=== PATIENT | female | born 1940 | race Caucasian/White ===

== ENCOUNTER → 2016-06-14 | Outpatient (CLI) | payer MEDICARE, BC, OTHER ==
[~2016-06-14] MED LIST: /ASCO250TA PO; /BENA20TA PO; /METO5TA PO; ACET-654 PO; ALDA25TA2 PO; AMLO5TAB2 PO; ASCO500T PO; ASPI1TAB PO; ASPI81TA60 PO; ATEN100T PO; ATEN25TA PO; AUGM875T27 PO; BACIDCA PO; BENA20TA2 PO; BISAC5TA PO; CALC600T7 PO; CALCTAB68 PO; CARA1TAB2 PO; CARD180C4 PO; CARD60TA3 PO; CLIN200T PO; CO Q100C10 PO; COLA100C PO; COLCPOW6 PO; COUM1TAB14 PO; COUM1TAB17 PO; COUM2.5T11 PO; CYMB1CAP PO; CYMB1CAP5 PO; DILT300C46 PO; EUCECRE2 EX; FEBU40TA PO; FISH1000 PO; FISH100035 PO; FOLI1TAB2 PO; FOLI1TAB86 PO; GABA300C2 PO; GABA600T PO; HEPA100I4 IV; INDA2.5T PO; LASI40TA PO; LEVA250T PO; LORA1TAB PO; MAGN400T5 PO; METH2.5T PO; METH5TAB76 PO; MILK10SU PO; MULTTAB4 PO; NEUR300C PO; NORC5TAB PO; OMEP40CA2 PO; OSCA200T PO; POTA10CA PO; PRED10TA2 PO; REGR0.01 TOP; SALI0.9I2 IV; SLF IV; SPIR25TA2 PO; SUCR1TAB56 PO; SULF1TAB30 PO; SULF500T2 PO; SULI200T PO; TOLT1CAP PO; TOVI4TAB PO; TOVI8TAB PO; TYLE325T5 PO; VICO5TAB PO; VICO7.5T PO; VICO7.5T11 PO; VITA200015 PO; VITA20008 PO; VITA50003 PO; VITAD1000T PO; VITMTA PO; [UNRECOGNIZED DRUG - CODE] IV; [UNRECOGNIZED DRUG - CODE] IV; [UNRECOGNIZED DRUG - OTHER] PR
[2016-06-14 17:01] LABS: BASO # 0.2 K/mm3 (0.0-0.2); BASO % 2.2 % (0.0-1.0); EOS # 0.1 K/mm3 (0.0-0.50); EOS % 0.7 % (0.0-3.0); LARGE UNSTAINED CELL # 0.4 K/mm3 (0.0-0.4); LYMPH # 2.8 K/mm3 (1.5-4.5); LYMPH % 24.6 % (24.0-44.0); MEAN CORPUSCULAR HEMOGLOBIN 30.3 pg (27.0-33.0); MEAN CORPUSCULAR HGB CONC 31.1 g/dl (32.0-36.5); MEAN CORPUSCULAR VOLUME 97.2 fl (80.0-96.0); MONO # 0.6 K/mm3 (0.0-0.8); MONO % 5.7 % (0.0-5.0); NEUTROPHILS # 6.2 K/mm3 (1.8-7.7); NEUTROPHILS % 62.7 % (36.0-66.0); PLATELET COUNT, AUTOMATED 162 k/mm3 (150-450); RED CELL DISTRIBUTION WIDTH 14.9 % (11.5-14.5); WHITE BLOOD COUNT 9.8 K/mm3 (4.0-10.0)
[2016-06-14 17:17] LABS: TOTAL PROTEIN 6.1 GM/DL (6.4-8.2)
[2016-06-18 12:54] LABS: ALBUMIN 4.06 GM/DL (3.29-5.55); ALBUMIN % 66.5 % (55.8-66.1); GAMMA GLOBULIN % 7.8 % (11.1-18.8)
== END ==
LOC: M WUC 11:50
PROVIDERS: ATTEND Internal Medicine Medical Oncology
DX: D47.3 Essential (hemorrhagic) thrombocythemia (principal); M06.89 Other specified rheumatoid arthritis, multiple sites
CPT/HCPCS: 15275; 36415; 84165; 84166; 85025; 86335; Q4131

== ENCOUNTER → 2016-07-02 | Outpatient (CLI) | payer MEDICARE, BC, OTHER ==
[2016-07-02 17:37] LABS: MEAN CORPUSCULAR HEMOGLOBIN 30.4 pg (27.0-33.0); MEAN CORPUSCULAR HGB CONC 31.7 g/dl (32.0-36.5); MEAN CORPUSCULAR VOLUME 95.7 fl (80.0-96.0); RED CELL DISTRIBUTION WIDTH 13.3 % (11.5-14.5); WHITE BLOOD COUNT 8.8 K/mm3 (4.0-10.0)
[2016-07-02 17:49] LABS: ALBUMIN 3.8 GM/DL (3.2-5.2); CALCIUM LEVEL 9.3 MG/DL (8.8-10.2); CREATININE FOR GFR 1.38 MG/DL (0.55-1.02); GLOMERULAR FILTRATION RATE 39.5 (>39); PHOSPHORUS LEVEL 3.3 MG/DL (2.5-4.9); POTASSIUM SERUM 4.7 MEQ/L (3.5-5.1)
== END ==
LOC: M WUC 12:51
PROVIDERS: ATTEND Family Medicine
DX: N18.3 Chronic kidney disease, stage 3 (moderate) (principal)

== ENCOUNTER → 2016-08-02 | Outpatient (REF) | payer MEDICARE, BC, OTHER ==
[2016-08-02 17:21] LABS: MEAN CORPUSCULAR HEMOGLOBIN 31.4 pg (27.0-33.0); MEAN CORPUSCULAR HGB CONC 31.4 g/dl (32.0-36.5); MEAN CORPUSCULAR VOLUME 99.7 fl (80.0-96.0); RED CELL DISTRIBUTION WIDTH 13.3 % (11.5-14.5); WHITE BLOOD COUNT 7.9 K/mm3 (4.0-10.0)
[2016-08-02 18:09] LABS: CREATININE FOR GFR 1.21 MG/DL (0.55-1.02); GLOMERULAR FILTRATION RATE 45.8 (>39)
== END ==
LOC: M LAB REF 16:25
PROVIDERS: ATTEND Surgery
DX: L97.521 Non-pressure chronic ulcer of other part of left foot limited to breakdown of skin (principal)

== ENCOUNTER → 2016-08-14 | Outpatient (CLI) | payer MEDICARE, BC, OTHER ==
--- NOTE | 2016-08-14 10:53 | REP ---
Clinical: Chronic ulcer. Technique: Axial noncontrast images through the left foot with coronal and sagittal re-formations. Findings: Diffuse moderate subcutaneous edema and infiltration is appreciated throughout the foot. There is no evidence for laceration or emphysematous tract to define focal ulceration. No drainable, discrete fluid collection or abscess is appreciated. The osseous structures demonstrate advanced osteoarthritic degenerative changes predominate in the mid foot and tarsometatarsal joints as well as interphalangeal joints. No obvious acute fracture or dislocation. Fatty deposition in otherwise normal Achilles tendon is appreciated. Impression: 1. Advanced osteoarthritic degenerative changes with subcutaneous edema and infiltration. 2. No evidence for laceration, ulceration, subcutaneous emphysema, fluid collection or abscess. Signed by Andrew Rodriguez MD 08/14/2016 10:44 A
== END ==
LOC: M RAD 09:46
PROVIDERS: ATTEND Surgery
DX: L97.521 Non-pressure chronic ulcer of other part of left foot limited to breakdown of skin (principal)

== ENCOUNTER → 2016-09-19 | Outpatient (REF) | payer MEDICARE, OTHER ==
[~2016-09-19] MED LIST changes: -COLA100C PO; +COLA100C3 PO; +NORC1TAB4 PO; -NORC5TAB PO
[2016-09-19 14:12] LABS: FERRITIN 52 NG/ML (8-252); PERCENT SATURATION 28.2 % (13.2-37.4); TOTAL IRON BINDING CAPACITY 280 UG/DL (250-450); TOTAL PROTEIN 6.1 GM/DL (6.4-8.2)
[2016-09-20 12:35] LABS: ALBUMIN 4.14 GM/DL (3.29-5.55); ALBUMIN % 67.9 % (55.8-66.1); GAMMA GLOBULIN % 7.5 % (11.1-18.8)
[2016-09-21 00:07] LABS: FREE KAPPA LIGHT CHAINS SERUM 29.94 mg/L (3.30-19.40); FREE LAMBDA LIGHT CHAINS SERUM 17.12 mg/L (5.71-26.30); KAPPA/LAMBDA RATIO SERUM 1.75 (0.26-1.65)
== END ==
LOC: M LAB REF 13:23
PROVIDERS: ATTEND Internal Medicine Medical Oncology
DX: D47.2 Monoclonal gammopathy (principal); D50.9 Iron deficiency anemia, unspecified

== ENCOUNTER → 2016-12-10 | Outpatient (CLI) | payer MEDICARE, OTHER, MEDICAID ==
[~2016-12-10] MED LIST changes: -ACET-654 PO; +ACET1TAB17 PO; +ACET650T3 PO; +AMPI500C9 PO; -AUGM875T27 PO; +AUGM875T28 PO; +BECA1GEL TOP; +BYST5TAB2 PO; +CALC1CAP31 PO; -COLA100C3 PO; +COLA100C5 PO; -COUM2.5T11 PO; +COUM2.5T17 PO; +DILT240C PO; +FERR1TAB8 PO; -FOLI1TAB2 PO; +FOLI1TAB4 PO; +FURO40TA2 PO; +ISOS1TAB12 PO; +LEVA1TAB PO; -LEVA250T PO; -REGR0.01 TOP; +VITA1CAP40 PO; -VITA50003 PO
[2016-12-10 18:26] LABS: MEAN CORPUSCULAR HEMOGLOBIN 32.7 pg (27.0-33.0); MEAN CORPUSCULAR HGB CONC 32.8 g/dl (32.0-36.5); MEAN CORPUSCULAR VOLUME 99.6 fl (80.0-96.0); RED CELL DISTRIBUTION WIDTH 13.1 % (11.5-14.5); WHITE BLOOD COUNT 10.7 K/mm3 (4.0-10.0)
[2016-12-10 18:46] LABS: ALBUMIN 3.8 GM/DL (3.2-5.2); ALBUMIN/GLOBULIN RATIO 1.73 (1.00-1.93); BILIRUBIN,TOTAL 0.5 MG/DL (0.2-1.0); CREATININE FOR GFR 1.66 MG/DL (0.55-1.02); GLOMERULAR FILTRATION RATE 31.8 (>39); POTASSIUM SERUM 4.1 MEQ/L (3.5-5.1); URIC ACID 7.5 MG/DL (2.6-6.0)
== END ==
LOC: M WUC 12:18
PROVIDERS: ATTEND Family Medicine
DX: N18.3 Chronic kidney disease, stage 3 (moderate) (principal); I63.40 Cerebral infarction due to embolism of unspecified cerebral artery; M10.9 Gout, unspecified

== ENCOUNTER → 2016-12-19 | Outpatient (REF) | payer MEDICARE, OTHER, MEDICAID | LOC: M LAB REF 13:07 | PROVIDERS: ATTEND Internal Medicine Nephrology | DX: N39.0 Urinary tract infection, site not specified (principal) ==

== ENCOUNTER 2017-02-17 10:25 | Inpatient (IN) | payer MEDICARE, BC, OTHER, MEDICAID ==
[~2017-02-17] VITALS: Ht 170.2 cm; Wt 106.9 kg
[~2017-02-17 10:25] MED LIST changes: -ACET650T3 PO; -AMPI500C9 PO; -BYST5TAB2 PO; -CALC1CAP31 PO; -DILT240C PO; -FERR1TAB8 PO; -FURO40TA2 PO; -ISOS1TAB12 PO
[2017-02-17] MEDS ORDERED: BYST5TAB2 PO (10:40)
[2017-02-17] MEDS ORDERED: CALC1CAP31 PO (10:42)
[2017-02-17 11:14] LABS: BASO % 0.4 % (0.0-1.0); EOS # 0.1 K/mm3 (0.0-0.50); LARGE UNSTAINED CELL # 0.3 K/mm3 (0.0-0.4); LARGE UNSTAINED CELL % 3.4 % (0.0-4.0); LYMPH # 2.2 K/mm3 (1.5-4.5); MEAN CORPUSCULAR HEMOGLOBIN 32.9 pg (27.0-33.0); MEAN CORPUSCULAR HGB CONC 33.5 g/dl (32.0-36.5); MEAN CORPUSCULAR VOLUME 98.1 fl (80.0-96.0); MONO # 0.4 K/mm3 (0.0-0.8); MONO % 4.8 % (0.0-5.0); NEUTROPHILS # 4.5 K/mm3 (1.8-7.7); NEUTROPHILS % 60.4 % (36.0-66.0); PLATELET COUNT, AUTOMATED 134 k/mm3 (150-450); RED CELL DISTRIBUTION WIDTH 13.1 % (11.5-14.5); WHITE BLOOD COUNT 7.4 K/mm3 (4.0-10.0)
[2017-02-17 12:48] LABS: INR 2.06
[2017-02-17 13:11] LABS: ALBUMIN 3.7 GM/DL (3.2-5.2); ALBUMIN/GLOBULIN RATIO 1.54 (1.00-1.93); ALKALINE PHOSPHATASE 97 U/L (45-117); ALT/SGPT 21 U/L (12-78); ANION GAP 9 MEQ/L (8-16); AST/SGOT 21 U/L (15-37); BILIRUBIN,DIRECT 0.1 MG/DL (0.0-0.2); BILIRUBIN,TOTAL 0.4 MG/DL (0.2-1.0); BLOOD UREA NITROGEN 49 MG/DL (7-18); CALCIUM LEVEL 8.7 MG/DL (8.8-10.2); CARBON DIOXIDE LEVEL 32 MEQ/L (21-32); CHLORIDE LEVEL 102 MEQ/L (98-107); GLOMERULAR FILTRATION RATE 46.3 (>39); GLUCOSE, FASTING 102 MG/DL (83-110); POTASSIUM SERUM 4.3 MEQ/L (3.5-5.1); SODIUM LEVEL 143 MEQ/L (136-145); TOTAL PROTEIN 6.1 GM/DL (6.4-8.2)
--- NOTE | 2017-02-17 13:23 | REP ---
CHEST, SINGLE VIEW: Single view of the chest is performed and compared to prior study of 03/07/2016. There is a huge hiatal hernia. No acute infiltrate is seen. There is elevation of the left hemidiaphragm. Heart is upper limits of normal in size. Mediastinal silhouette is unchanged. IMPRESSION: Stable chronic findings without acute infiltrate. Signed by Bharath Jorgensen MD 02/17/2017 07:17 P
[2017-02-17] MEDS ORDERED: FUROSEMIDE 40 MG/4 ML VIAL (J1940) IV ONE (13:45)
[2017-02-17] MEDS ORDERED: ISOS1TAB12 PO (14:52)
[2017-02-17] MEDS ORDERED: SPIR25TA2 PO (14:52)
[2017-02-17] MEDS ORDERED: COLA100C5 PO (14:52)
[2017-02-17] MEDS ORDERED: DILT240C PO (14:52)
[2017-02-17] MEDS ORDERED: ACET650T3 PO (14:52)
[2017-02-17] MEDS ORDERED: FURO40TA2 PO (14:52)
[2017-02-17] MEDS ORDERED: DOCUSATE SODIUM 100 MG CAP PO PRN (15:00)
--- NOTE | 2017-02-17 15:51 | HPE ---
DATE OF ADMISSION: 02/17/2017 PRIMARY CARE PHYSICIAN: Levi Carrasco MD CHIEF COMPLAINT: Shortness of breath and weight gain. HISTORY OF PRESENT ILLNESS: This is a 76-year-old woman with a history of systolic congestive heart failure with an ejection fraction (EF) of 30% on cardiac catheterization in July 2015, a history of mitral valve replacement for spontaneous bacterial endocarditis, and atrial fibrillation who presented with 1 week of gradually worsening shortness of breath with exertion, worsening orthopnea, and paroxysmal nocturnal dyspnea. She weighs herself every other day and has noticed a five pound weight gain over the past week. She also is complaining of 3-4 days of chest tightness that is worse when taking a deep breath, but it is also present at rest. She underwent a cardiac catheterization in July 2015, prior to her mitral valve replacement, that was negative for coronary artery disease. In the emergency department, she was found to have an elevated BNP of 2889. Chest x-ray showed cephalization and chronic cardiomegaly. She also underwent a vascular ultrasound of her right leg due to increased edema that was negative for a deep venous thrombosis (DVT). PAST MEDICAL HISTORY: 1. 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 2. Atrial fibrillation after mitral valve replacement in July 2015. 3. Rheumatoid arthritis. 4. Hypertension. 5. 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 6. Lumbar spinal stenosis. 7. Hyperlipidemia. 8. Esophageal reflux. 9. Impaired fasting glucose and metabolic syndrome. 10. Peripheral edema secondary to venous insufficiency. 11. Vitamin D deficiency. 12. History of methicillin-resistant Staphylococcus aureus (MRSA). 13. Gout. 14. History of CVA, probably septic emboli in July 2013. 15. History of hiatal hernia. 16. Urinary incontinence. 17. Systolic congestive heart failure. 18. Monoclonal gammopathy of undetermined significance. 19. Chronic kidney disease stage III. SURGICAL HISTORY: 1. Lumbar spinal fusion in 1994. 2. Venous stripping x 2. 3. Total abdominal hysterectomy and bilateral salpingo-oophorectomy for endometrial adenocarcinoma. 4. Left total knee replacement. 5. Right total knee replacement. 6. Multiple podiatry procedures including bunionectomy and hammer toe surgeries. 7. Transesophageal echo that showed vegetation in the mitral valve in July 2013. 8. Mitral valve replacement with a #33 Mosaic mitral valve (porcine) in July 2015 at [facility]. 9. Cardiac catheterization at [facility] which showed no coronary artery disease and an ejection fraction (EF) of 30% with severe mitral regurgitation in July 2015, prior to mitral valve replacement. CURRENT MEDICATIONS: - Carafate 1 gram four times a day before food and nightly - omeprazole 40 mg by mouth twice a day - oxygen 2 liters via nasal cannula overnight - potassium chloride 10 mEq twice a day - magnesium 400 mg daily - Tylenol 325 mg every 6 hours as needed for pain - aspirin 81 mg daily - multivitamin one tablet daily - Coumadin 4 mg by mouth daily - Lasix 40 mg take two tablets in the morning and one tablet at 12 noon - Aldactone 25 mg twice a day - isosorbide mononitrate 10 mg take half a tablet by mouth twice a day - Bystolic 5 mg once daily - diltiazem extended release 240 mg by mouth daily - calcitriol 0.25 mcg one capsule on Mondays, Wednesdays, and Fridays - Doc-Q-Lace 100 mg twice a day as needed - folic acid 1 mg by mouth daily - Uloric 40 mg by mouth daily - sulfasalazine 500 mg take two tablets by mouth twice a day - ferrous sulfate 325 mg one tablet by mouth daily - Detrol 4 mg by mouth daily - Cymbalta 30 mg by mouth twice a day - Drisdol 50,000 units one capsule by mouth monthly - gabapentin 600 mg one tablet by mouth twice a day FAMILY HISTORY: Noncontributory. SOCIAL HISTORY: Patient denies tobacco, alcohol, or drug use. She lives with her and has caregivers who are in the house for approximately 5 hours a day. ALLERGIES: ALLOPURINOL, reaction is rash. REVIEW OF SYSTEMS: GENERAL: Denies fevers, chills. Admits to a five pound weight gain over the last week. Denies headaches. EARS, NOSE, THROAT (ENT): Denies throat pain, ear pain, rhinorrhea. SKIN: Denies rashes or changes in skin. CARDIOVASCULAR: Admits to chest tightness, both at rest and worse with taking a deep breath. Denies palpitations, lightheadedness. PULMONOLOGY: Admits to shortness of breath with exertion, orthopnea, paroxysmal nocturnal dyspnea, and dry nonproductive cough of approximately 2 months' duration. GASTROENTEROLOGY: Denies nausea, vomiting, abdominal pain, diarrhea, constipation, or blood in stool. NEUROLOGY: Denies focal weakness, sensory changes, or changes in thinking. MUSCULOSKELETAL: Admits to chronic pain in back, shoulders, hands, and wrists that is currently at baseline. EXTREMITIES: Admits to increased lower extremity edema, right worse than left. PHYSICAL EXAMINATION: Initial vital signs in the emergency department was a temperature of 97.6, pulse of 80, respiratory rate of 18, blood pressure 143/105, and a pulse oximetry of 93% on room air. Blood pressure at time of evaluation was 149/94. GENERAL: Patient is awake, alert, and oriented, in no apparent distress. HEAD: Normocephalic, atraumatic. ENT: Mucous membranes are moist. Tympanic membranes are pearly bilaterally. Patient is edentulous. No rhinorrhea noted. NECK: Supple, no thyromegaly or masses, jugular venous distention (JVD) noted. CARDIOVASCULAR: Irregularly irregular heart rate. No murmur. S1, S2 within normal limits. PULMONOLOGY: Bibasilar crackles noted with poor air movement throughout. No increased work of breathing. BACK: Nontender to palpation. ABDOMEN: Soft, nontender, with positive bowel sounds in all four quadrants. EXTREMITIES: 2+ pitting edema in right foot, ankle, and lower leg. 1+ pitting edema in left foot, ankle, and lower leg. Rheumatoid changes noted in both hands with ulnar deviation of fingers and limited ability to primer boxer. SKIN: Normal, no rashes. NEUROLOGIC: Cranial nerves II-XII are intact. Strength is 4+/5 in bilateral upper and lower extremities. LABORATORY DATA: Sodium 143, potassium 4.3, bicarbonate 32, BUN 49, creatinine 1.2, lactic acid 1.6, calcium 8.7. Liver panel was within normal limits. Cardiac enzymes were negative. Pro-BNP was 2889. TSH was 2.04. White blood cells 7.4, hemoglobin 14.2, hematocrit 42.4, platelets 134. PT 23.9, INR 2.06. Chest x-ray was read as stable chronic findings without acute infiltrate. Vascular ultrasound was reportedly negative for DVT on the right per emergency department (ED) physician. Final read is pending. ASSESSMENT AND PLAN: This is a 76-year-old woman with: 1. Acute exacerbation of systolic congestive heart failure: The patient will be admitted to the progressive care unit (PCU) for monitoring on telemetry. She will be given Lasix 40 mg IV every 6 hours as needed for a goal output of 1500 mL per 24 hours. She will be kept on a no added salt diet with strict monitoring of intake and output and a 2000 mL per day fluid restriction. We will hold her home oral Lasix and Aldactone while she is being diuresed. We will monitor her kidney function daily. We will continue her home potassium and magnesium and adjust as needed if electrolytes become abnormal. We will also continue her home Bystolic and diltiazem. 2. Chronic kidney disease stage III: Creatinine is currently close to baseline ; baseline creatinine appears to be around 1.1. We will need to monitor as we diurese her. 3. Atrial fibrillation: Will control rate with diltiazem and Bystolic. Will continue home Coumadin as she is currently therapeutic. 4. Hypertension: Continue Bystolic, diltiazem, and isosorbide mononitrate. 5. Will continue other medications for patient's chronic medical problems. Deep venous thrombosis (DVT) prophylaxis with coumadin (currently therapeutic). The patient states she would like to be a FULL CODE. MTDD
[2017-02-17 16:00] VITALS: BP 136/84
[2017-02-17] MEDS: SUCRALFATE 1 GM TAB PO SCH ×2 (16:43→20:25)
[2017-02-17] MEDS: WARFARIN SOD 4 MG TAB PO SCH (18:05)
[2017-02-17] MEDS: MAGNESIUM OXIDE 400 MG TAB (MAG-OX) PO SCH (18:08)
[2017-02-17] MEDS: ISOSORBIDE MONONITRATE 10MG TABLET PO SCH (18:08)
[2017-02-17] MEDS: FUROSEMIDE 40 MG/4 ML VIAL (J1940) IV SCH (18:09)
[2017-02-17 20:00] VITALS: BP 166/72
[2017-02-17] MEDS: DULoxetine 30 MG CAP (CYMBALTA) PO SCH (20:25)
[2017-02-17] MEDS: POTASSIUM CHLORIDE 10 MEQ SR TABLET PO SCH (20:25)
[2017-02-17] MEDS: GABAPENTIN 300 MG CAP PO SCH (20:25)
[2017-02-17] MEDS: OMEPRAZOLE 20 MG CAP PO SCH (20:25)
[2017-02-18] VITALS: BP 115/77
[2017-02-18] MEDS: FUROSEMIDE 40 MG/4 ML VIAL (J1940) IV SCH ×2 (00:17→06:09)
[2017-02-18 04:00] VITALS: BP 146/77
[2017-02-18 05:23] LABS: MEAN CORPUSCULAR HEMOGLOBIN 33.3 pg (27.0-33.0); MEAN CORPUSCULAR HGB CONC 34.1 g/dl (32.0-36.5); MEAN CORPUSCULAR VOLUME 97.6 fl (80.0-96.0); RED CELL DISTRIBUTION WIDTH 13.1 % (11.5-14.5); WHITE BLOOD COUNT 8.1 K/mm3 (4.0-10.0)
[2017-02-18 05:39] LABS: INR 2.04
[2017-02-18 05:52] LABS: ANION GAP 10 MEQ/L (8-16); BLOOD UREA NITROGEN 46 MG/DL (7-18); CALCIUM LEVEL 8.5 MG/DL (8.8-10.2); CARBON DIOXIDE LEVEL 31 MEQ/L (21-32); CHLORIDE LEVEL 101 MEQ/L (98-107); GLOMERULAR FILTRATION RATE 46.3 (>39); GLUCOSE, FASTING 110 MG/DL (83-110); MAGNESIUM LEVEL 1.9 MG/DL (1.8-2.4); POTASSIUM SERUM 3.5 MEQ/L (3.5-5.1); SODIUM LEVEL 142 MEQ/L (136-145)
[2017-02-18] MEDS: ISOSORBIDE MONONITRATE 10MG TABLET PO SCH ×2 (06:08→17:28)
[2017-02-18 08:00] VITALS: BP 131/81
--- NOTE | 2017-02-18 08:28 | ECGEPIP ---
Stationary ECG Study [facility] - ED Test Date: 2017-02-17 Pat Name: GIOVANY KAPLAN Department: Room: - Gender: F Desolderer: shelly : 1940 Requested By: Deysi Koch Order Number: [id number] Reading MD: Scar Merino Measurements Intervals [place] Rate: 82 P: LA: 0 QRS: 9 QRSD: 114 T: 67 QT: 386 QTc: 453 Interpretive Statements ATRIAL FIBRILLATION MODERATE INTRAVENTRICULAR CONDUCTION DELAY NONSPECIFIC ST & T-WAVE ABNORMALITY SIMILAR TO 03/12/16 Electronically Signed On 02-18-2017 8:28:44 EDT by Scar Merino
[2017-02-18] MEDS: OMEPRAZOLE 20 MG CAP PO SCH ×2 (08:34→21:52)
[2017-02-18] MEDS: GABAPENTIN 300 MG CAP PO SCH ×2 (08:34→21:52)
[2017-02-18] MEDS: FEBUXOSTAT 40 MG TABLET (ULORIC) PO SCH (08:34)
[2017-02-18] MEDS: TOLTERODINE TARTRATE 2 MG LA CAP (DETROL LA) PO SCH (08:35)
[2017-02-18] MEDS: FOLIC ACID 1 MG TAB PO SCH (08:35)
[2017-02-18] MEDS: MAGNESIUM OXIDE 400 MG TAB (MAG-OX) PO SCH (08:36)
[2017-02-18] MEDS: SUCRALFATE 1 GM TAB PO SCH ×4 (08:36→21:52)
[2017-02-18] MEDS: ASPIRIN 81 MG ENTERIC TAB PO SCH (08:36)
[2017-02-18] MEDS: NEBIVOLOL 5 MG TAB (BYSTOLIC) PO SCH (08:36)
[2017-02-18] MEDS: DULoxetine 30 MG CAP (CYMBALTA) PO SCH ×2 (08:37→21:52)
[2017-02-18] MEDS: FERROUS SULFATE 325MG TAB PO SCH (08:37)
[2017-02-18] MEDS: POTASSIUM CHLORIDE 10 MEQ SR TABLET PO SCH ×2 (08:37→21:52)
--- NOTE | 2017-02-18 10:33 | IPNPDOC ---
Subjective Date Seen The patient was seen on 02/18/17. Subjective Chief Complaint/HPI The patient is a 76-year-old female admitted with a reason for visit of Chf Exacerbation. Events since last encounter Significant improvement in symptoms. -1800 ml with IV Lasix. Constitutional: Denies: Chills, Fever, Night Sweats Skin: Denies: Rash, Lesions, Breakdown Pulmonary: Denies: Dyspnea, Cough Cardiovascular: Denies: Chest Pain, Palpitations, Orthopnea, Paroxysmal Noc. Dyspnea, Lt Headedness Objective Physical Examination General Exam: Positive: Alert, No Acute Distress Eye Exam: Positive: PERRLA, Conjunctiva & lids normal, EOMI, Negative: Sclera icteric Neck Exam: Positive: Supple, Negative: JVD, thyromegaly Chest Exam: Positive: Clear to auscultation, Normal air movement Heart Exam: Positive: Rate Normal, Regular Rhythm, Normal S1, Normal S2, Negative: Murmurs, Rubs Telemetry: Positive: No significant arrhythmia Extremity Exam: Positive: Normal pulses, Negative: Clubbing, Cyanosis, Edema Psych Exam: Positive: Mental status NL, Mood NL, Oriented x 3 Assessment /Plan Problems (1) Acute on chronic systolic (congestive) heart failure Status: Acute Problem Text: -1800 ml. symptoms near resolve. Change to home dosing Furosemide : 80 mg in am, 40 in pm. Electrolytes stable. (2) CKD (chronic kidney disease) stage 3, GFR 30-59 ml/min Status: Chronic Response to Treatment: Stable Problem Specific Plan: Monitor Clinically (3) A-fib Status: Chronic Response to Treatment: Stable Problem Specific Plan: Monitor Clinically Problem Text: INR stable at 2.04. On home dosing rate controlling medications. (4) Morbidly obese Status: Chronic Response to Treatment: Stable Problem Specific Plan: Monitor Clinically Plan/VTE VTE Prophylaxis Ordered?: Yes Plan Family Medicine Attending Note: I saw and examined Ms. Oconnor this morning; I discussed her care with JETT Tran and I agree with her note as documented. Ms. Oconnor was feeling significantly better this morning and diuresed well overnight. Will restart home PO furosemide and if she does well overnight, I expect she may be discharged home tomorrow. I discussed her mobility with her nurse - she does need assistance with ambulating, but she also does not have her home walker here. Her nurse spoke with the family, who will bring in her walker so that we can make sure she is able to ambulate and is safe for discharge. (KES) VS, I&O, 24H, Marianela Vital Signs/I&O Vital Signs Date Time Temp Pulse Resp B/P (MAP) Pulse Ox O2 Delivery O2 Flow Rate FiO2 02/18/17 08:35 92 131/81 02/18/17 08:10 Room Air 02/18/17 08:00 96.2 18 95 I&O- Last 24 Hours up to 6 AM 02/19/17 06:00 Intake Total 480 ml Output Total 500 ml Balance -20 ml Laboratory Data 24H LABS Laboratory Tests 2 02/17/17 11:05: White Blood Count 7.4, Red Blood Count 4.32, Hemoglobin 14.2, Hematocrit 42.4, Mean Corpuscular Volume 98.1H, Mean Corpuscular Hemoglobin 32.9, Mean Corpuscular Hemoglobin Concent 33.5, Red Cell Distribution Width 13.1, Platelet Count 134L, Neutrophils (%) (Auto) 60.4, Lymphocytes (%) (Auto) 30.0, Monocytes (%) (Auto) 4.8, Eosinophils (%) (Auto) 1.0, Basophils (%) (Auto) 0.4, Neutrophils # (Auto) 4.5, Lymphocytes # (Auto) 2.2, Monocytes # (Auto) 0.4, Eosinophils # (Auto) 0.1, Basophils # (Auto) 0.0, Large Unclassified Cells % 3.4 , Large Unclassified Cells # 0.3 02/17/17 12:33: Lactic Acid Level 1.6 02/17/17 12:34: Prothrombin Time 23.9H, Prothromb Time International Ratio 2.06, Anion Gap 9, Glomerular Filtration Rate 46.3, Calcium Level 8.7L, Aspartate Amino Transf (AST /SGOT) 21, Alanine Aminotransferase (ALT/SGPT) 21, Alkaline Phosphatase 97, Total Bilirubin 0.4, Direct Bilirubin 0.1, Total Creatine Kinase 120, Creatine Kinase MB 3.8H, Creatine Kinase MB Relative Index 3.16, Troponin I < 0.02, NT- Pro-B-Type Natriuretic Peptide 2889H, Total Protein 6.1L, Albumin 3.7, Albumin/ Globulin Ratio 1.54, Thyroid Stimulating Hormone (TSH) 2.040 02/17/17 20:45: Total Creatine Kinase 122, Creatine Kinase MB 3.6, Creatine Kinase MB Relative Index 2.95, Troponin I < 0.02 02/18/17 04:51: Prothrombin Time 23.7H, Prothromb Time International Ratio 2.04, Anion Gap 10, Glomerular Filtration Rate 46.3, Blood Urea Nitrogen 46H, Creatinine 1.20H, Sodium Level 142, Potassium Level 3.5, Chloride Level 101, Carbon Dioxide Level 31, Calcium Level 8.5L, Total Creatine Kinase 84, Magnesium Level 1.9, Creatine Kinase MB 2.2, Creatine Kinase MB Relative Index 2.61, Troponin I < 0.02 CBC/BMP Laboratory Tests 02/17/17 11:05 Red Blood Count 4.32, Mean Corpuscular Volume 98.1 H, Mean Corpuscular Hemoglobin 32.9, Mean Corpuscular Hemoglobin Concent 33.5, Red Cell Distribution Width 13.1, Neutrophils (%) (Auto) 60.4, Lymphocytes (%) (Auto) 30.0, Monocytes (%) (Auto) 4.8, Eosinophils (%) (Auto) 1.0, Basophils (%) (Auto ) 0.4, Neutrophils # (Auto) 4.5, Lymphocytes # (Auto) 2.2, Monocytes # (Auto) 0.4, Eosinophils # (Auto) 0.1, Basophils # (Auto) 0.0 02/17/17 12:34 02/18/17 04:51 Red Blood Count 3.98 L, Mean Corpuscular Volume 97.6 H, Mean Corpuscular Hemoglobin 33.3 H, Mean Corpuscular Hemoglobin Concent 34.1, Red Cell Distribution Width 13.1, Calcium Level 8.5 L, Total Creatine Kinase 84 Microbiology Microbiology 02/17/17 Blood Culture, Received Pending 02/17/17 Blood Culture, Received Pending Linnette Henderson Feb 18, 2017 10:33 ALISHA SCOTT MD Feb 18, 2017 12:38
[2017-02-18 11:36] VITALS: BP 136/79
--- NOTE | 2017-02-18 12:55 | REP ---
Right lower extremity Duplex Doppler venous ultrasound: Real time compression and duplex Doppler interrogation of the right lower extremity deep venous system is performed. The right common femoral, superficial femoral and popliteal veins are fully compressible with transducer pressure and demonstrate normal spontaneous and phasic flow, without evidence of deep venous thrombosis. Impression: No evidence of deep venous thrombosis of the right lower extremity femoral popliteal venous system. Signed by Bharath Jorgensen MD 02/17/2017 11:35 A
[2017-02-18] MEDS: FUROSEMIDE 40 MG TAB PO SCH (14:45)
[2017-02-18 16:00] VITALS: BP 148/70
[2017-02-18] MEDS: WARFARIN SOD 4 MG TAB PO SCH (17:26)
[2017-02-18] MEDS ORDERED: CALCITRIOL 0.25 MCG CAP (S0169) PO SCH (18:00)
[2017-02-18 20:00] VITALS: BP 133/73
[2017-02-18] MEDS: ACETAMINOPHEN 325 MG TAB PO PRN (22:04)
[2017-02-19] VITALS: BP 124/77
[2017-02-19 04:00] VITALS: BP 124/80
[2017-02-19 06:28] LABS: INR 1.99
[2017-02-19] MEDS: ISOSORBIDE MONONITRATE 10MG TABLET PO SCH ×2 (06:57→17:49)
[2017-02-19 07:06] LABS: CALCIUM LEVEL 8.9 MG/DL (8.8-10.2); CREATININE FOR GFR 1.25 MG/DL (0.55-1.02); GLOMERULAR FILTRATION RATE 44.1 (>39); POTASSIUM SERUM 3.2 MEQ/L (3.5-5.1)
[2017-02-19 07:30] VITALS: BP 132/72
[2017-02-19] MEDS ORDERED: INFLUENZA VIRUS VACCINE HIGH DOSE 0.5 ML SYRINGE (90662) IM ONE (09:00)
[2017-02-19] MEDS: NEBIVOLOL 5 MG TAB (BYSTOLIC) PO SCH (09:29)
[2017-02-19] MEDS: TOLTERODINE TARTRATE 2 MG LA CAP (DETROL LA) PO SCH (09:29)
[2017-02-19] MEDS: FUROSEMIDE 80 MG TAB PO SCH (09:29)
[2017-02-19] MEDS: OMEPRAZOLE 20 MG CAP PO SCH ×2 (09:29→20:52)
[2017-02-19] MEDS: GABAPENTIN 300 MG CAP PO SCH ×2 (09:30→20:52)
[2017-02-19] MEDS: MAGNESIUM OXIDE 400 MG TAB (MAG-OX) PO SCH (09:30)
[2017-02-19] MEDS: FOLIC ACID 1 MG TAB PO SCH (09:30)
[2017-02-19] MEDS: DULoxetine 30 MG CAP (CYMBALTA) PO SCH ×2 (09:31→20:51)
[2017-02-19] MEDS: SUCRALFATE 1 GM TAB PO SCH ×4 (09:31→20:51)
[2017-02-19] MEDS: ASPIRIN 81 MG ENTERIC TAB PO SCH (09:31)
[2017-02-19] MEDS: FERROUS SULFATE 325MG TAB PO SCH (09:31)
[2017-02-19] MEDS: POTASSIUM CHLORIDE 10 MEQ SR TABLET PO SCH ×2 (09:31→20:51)
[2017-02-19 12:00] VITALS: BP 169/70
--- NOTE | 2017-02-19 12:12 | IPNPDOC ---
Subjective Date Seen The patient was seen on 02/19/17. Subjective Chief Complaint/HPI The patient is a 76-year-old female admitted with a reason for visit of Chf Exacerbation. Events since last encounter breathing significantly improved from admission. ambulated in hallway without Bazan Constitutional: Denies: Chills, Fever Pulmonary: Denies: Dyspnea, Cough Cardiovascular: Denies: Chest Pain, Palpitations Gastrointestinal: Denies: Nausea, Vomiting, Abdominal Pain, Diarrhea, Constipation Objective Physical Examination General Exam: Positive: Alert, No Acute Distress Neck Exam: Positive: Supple, Negative: JVD, thyromegaly Chest Exam: Positive: Clear to auscultation, Normal air movement Heart Exam: Positive: Rate Normal, Regular Rhythm, Normal S1, Normal S2, Negative: Murmurs, Rubs Telemetry: Positive: No significant arrhythmia Extremity Exam: Positive: Edema (trace edmea right > left) Psych Exam: Positive: Mental status NL, Oriented x 3 Assessment /Plan Problems (1) Acute on chronic systolic (congestive) heart failure Status: Acute Problem Text: 02.19 - Compensated on HD Furosemide. BUN up, creatinine stable - monitor trend - (2) CKD (chronic kidney disease) stage 3, GFR 30-59 ml/min Status: Chronic Response to Treatment: Stable Problem Specific Plan: Monitor Clinically Problem Text: baseline cr 1.2 (3) A-fib Status: Chronic Response to Treatment: Stable Problem Specific Plan: Monitor Clinically Problem Text: 02/19 - INR = 1.99. On coumadin 4 mg daily - Give 5 mg today Rate controlled (4) Morbidly obese Status: Chronic Response to Treatment: Stable Problem Specific Plan: Monitor Clinically Plan/VTE VTE Prophylaxis Ordered?: Yes Plan Therapy: PT, OT (Not safe for d/c home - needs 1 - 2 more days per PT. Move to floor) VS, I&O, 24H, Fishbone Vital Signs/I&O Vital Signs Date Time Temp Pulse Resp B/P (MAP) Pulse Ox O2 Delivery O2 Flow Rate FiO2 02/19/17 09:29 75 132/72 02/19/17 08:00 Room Air 02/19/17 07:30 97.5 20 96 2.0 I&O- Last 24 Hours up to 6 AM 02/20/17 06:00 Intake Total 360 ml Balance 360 ml Laboratory Data 24H LABS Laboratory Tests 2 02/19/17 05:45: Prothrombin Time 23.3H, Prothromb Time International Ratio 1.99, Anion Gap 8, Glomerular Filtration Rate 44.1, Blood Urea Nitrogen 52H, Creatinine 1.25H, Sodium Level 141, Potassium Level 3.2L, Chloride Level 102, Carbon Dioxide Level 31, Calcium Level 8.9 CBC/BMP Laboratory Tests 02/19/17 05:45 Calcium Level 8.9 Microbiology Microbiology 02/17/17 Blood Culture - Preliminary, Resulted No growth after 24 hours . All specim... 02/17/17 Blood Culture - Preliminary, Resulted No Growth after 48 hours. All Specime... BARRY BUTLER PA-C Feb 19, 2017 12:12 Yariel Davidson M.D. Feb 19, 2017 17:44
[2017-02-19] MEDS: FUROSEMIDE 40 MG TAB PO SCH (14:09)
[2017-02-19 16:10] VITALS: BP 134/62
[2017-02-19] MEDS ORDERED: WARFARIN SOD 5 MG TAB PO ONE (17:00)
[2017-02-19 20:00] VITALS: BP 121/73
[2017-02-19] MEDS ORDERED: SLF 3 ML SYR IV PRN (20:45)
[2017-02-19] MEDS: ACETAMINOPHEN 325 MG TAB PO PRN (20:53)
[2017-02-19] MEDS: SLF 3 ML SYR IV SCH (20:53)
[2017-02-20] VITALS: BP 136/75
[2017-02-20 04:00] VITALS: BP 148/81
[2017-02-20] MEDS: ACETAMINOPHEN 325 MG TAB PO PRN (04:17)
[2017-02-20 06:03] LABS: INR 1.85
[2017-02-20 06:09] LABS: CALCIUM LEVEL 8.8 MG/DL (8.8-10.2); CREATININE FOR GFR 1.47 MG/DL (0.55-1.02); GLOMERULAR FILTRATION RATE 36.6 (>39)
[2017-02-20] MEDS: ISOSORBIDE MONONITRATE 10MG TABLET PO SCH (06:34)
[2017-02-20] MEDS: SLF 3 ML SYR IV SCH (06:35)
[2017-02-20 07:45] VITALS: BP 199/89
[2017-02-20] MEDS: DULoxetine 30 MG CAP (CYMBALTA) PO SCH (08:38)
[2017-02-20 08:39] VITALS: BP 199/89
[2017-02-20] MEDS: FUROSEMIDE 80 MG TAB PO SCH (08:39)
[2017-02-20] MEDS: TOLTERODINE TARTRATE 2 MG LA CAP (DETROL LA) PO SCH (08:39)
[2017-02-20] MEDS: SUCRALFATE 1 GM TAB PO SCH (08:39)
[2017-02-20] MEDS: NEBIVOLOL 5 MG TAB (BYSTOLIC) PO SCH (08:39)
[2017-02-20] MEDS: FEBUXOSTAT 40 MG TABLET (ULORIC) PO SCH (08:39)
[2017-02-20] MEDS: FOLIC ACID 1 MG TAB PO SCH (08:39)
[2017-02-20] MEDS: GABAPENTIN 300 MG CAP PO SCH (08:39)
[2017-02-20] MEDS: OMEPRAZOLE 20 MG CAP PO SCH (08:39)
[2017-02-20] MEDS: FERROUS SULFATE 325MG TAB PO SCH (08:40)
[2017-02-20] MEDS: MAGNESIUM OXIDE 400 MG TAB (MAG-OX) PO SCH (08:40)
[2017-02-20] MEDS: POTASSIUM CHLORIDE 10 MEQ SR TABLET PO SCH (08:40)
[2017-02-20] MEDS: ASPIRIN 81 MG ENTERIC TAB PO SCH (08:40)
[2017-02-20 09:21] VITALS: BP 167/76
--- NOTE | 2017-02-21 02:13 | DSES ---
DATE OF ADMISSION: 02/17/2017 DATE OF DISCHARGE: 02/20/2017 BRIEF HISTORY AND PHYSICAL: The patient is a 76-year-old patient with a history of systolic congestive heart failure with ejection fraction of 30% per cardiac catheterization July 2015. She presented with gradually worsening shortness of breath, orthopnea, paroxysmal nocturnal dyspnea, as well as 5-pound weight gain and some tightness in her chest. Beta-natruretic peptide (BNP) was 2889. Chest x-ray showed cephalization and she had bibasilar crackles, as well as edema in both lower extremities. PAST MEDICAL HISTORY: Significant for: 1. Spontaneous bacterial endocarditis with mitral valve Enterococcal in 2013 with subsequent mitral valve replacement and porcine valve in July 2015. 2. Atrial fibrillation after mitral valve replacement. 3. Rheumatoid arthritis. 4. Hypertension. 5. Degenerative disc disease. 6. Lumbar spinal stenosis. 7. Hyperlipidemia. 8. Esophageal reflux. 9. Impaired fasting glucose. 10. Metabolic syndrome. 11. Peripheral edema secondary to venous insufficiency. 12. Vitamin D deficiency. 13. History of methicillin-resistant Staphylococcus aureus. 14. Gout. 15. History of a CVA, probably septic emboli in July 2013. 16. History of hiatal hernia. 17. Urinary incontinence. 18. Systolic congestive heart failure. 19. Monoclonal gammopathy of undetermined significance. 20. Chronic kidney disease stage III. PERTINENT LABORATORIES ON ADMISSION: Sodium 143, potassium 4.3, BUN 49, creatinine 1.2. Liver enzymes were normal. Cardiac enzymes were negative. BNP was 2889. White blood cell count was 7.4, hemoglobin 14.2, platelets 134,000. Chest x-ray was read as stable chronic findings without acute infiltrate. Vascular ultrasound was negative for DVT on the right. HOSPITAL COURSE: 1. The patient was admitted for acute on chronic systolic congestive heart failure, ejection fraction is 30%. She was placed on intravenous (IV) Lasix, no added salt diet and fluid restriction were initiated and she remained on her usual potassium, magnesium and spironolactone, as well as Bystolic and diltiazem. Ultimately, although the history and physical (H and P) stated they were going to continue her usual spironolactone, it looks as though this was not continued during the hospitalization. However, I will restart this at her usual home dose upon discharge, as well as her usual maintenance Lasix. She responded well to the IV Lasix and is well compensated at this time without signs of heart failure. Her potassium today is 4.0, but she was hypokalemic after getting the Lasix and did require some oral replacement. I suspect she will benefit from being on the spironolactone at home as well. No other medication adjustments were made during the hospitalization and she will be discharged home on all of her other usual medications with no new medications prescribed. 2. Atrial fibrillation. She is on chronic Coumadin. She will continue her usual Coumadin dose of 4 mg daily. She was not continued on this during the hospitalization. Her INR drifted down 1.85 today, but I will restart her on her usual dose and suspect that this will return back to its therapeutic range where it was when she arrived in the hospital. 3. Chronic kidney disease. Her renal function, BUN and creatinine agustín slightly with diuresis to 52 and 1.47, but this I suspect is her dry weight and renal function. DISPOSITION: She is stable for discharge home with home health. She will need a bedside commode. She is safe per physical therapy. MEDICATIONS: - acetaminophen 650 mg every 8 hours as needed for pain - aspirin 81 mg daily - calcitriol 0.25 mcg three times a week - diltiazem 240 mg daily - Colace 100 mg twice a day - Cymbalta 30 mg twice a day - vitamin D 50,000 international units monthly - Uloric 40 mg every 2 days - folic acid 1 mg daily - Lasix 80 mg in the morning, 40 mg at noon - gabapentin 600 mg twice a day - isosorbide mononitrate 5 mg twice a day - magnesium 400 mg daily - multivitamin daily - Bystolic 5 mg daily - omeprazole 40 mg twice a day - potassium chloride 10 mEq twice a day - spironolactone 25 mg twice a day - sucralfate 1 gram daily - sulfasalazine 1000 mg twice a day - tolterodine tartrate 4 mg daily - Coumadin 4 mg daily DISCHARGE DIAGNOSES: 1. Acute on chronic systolic congestive heart failure. 2. Atrial fibrillation on chronic Coumadin. 3. Chronic kidney disease. 4. Hypokalemia, resolved. 5. Rheumatoid arthritis with chronic pain and unsteady gait.
[2017-04-01] MEDS ORDERED: FEBU40TA PO (19:16)
[2017-04-01] MEDS ORDERED: AMPI500C9 PO (23:52)
[2017-04-01] MEDS ORDERED: FERR1TAB8 PO (23:52)
[2017-04-04] MEDS ORDERED: XARE15TA PO (09:00)
== END 2017-02-20 12:00 | disposition home health service (06) | DRG 291 ==
LOC: M ED 10:25 → M ED INP 14:03 → M PCU 15:45
PROVIDERS: ADMIT Family Medicine; ATTEND Family Medicine
DX: I13.0 Hypertensive heart and chronic kidney disease with heart failure and stage 1 through stage 4 chronic kidney disease, or unspecified chronic kidney disease (principal); I50.23 Acute on chronic systolic (congestive) heart failure; N18.3 Chronic kidney disease, stage 3 (moderate); I48.91 Unspecified atrial fibrillation; E55.9 Vitamin D deficiency, unspecified; E78.5 Hyperlipidemia, unspecified; E66.01 Morbid (severe) obesity due to excess calories; K21.9 Gastro-esophageal reflux disease without esophagitis; Z86.14 Personal history of Methicillin resistant Staphylococcus aureus infection; Z86.73 Personal history of transient ischemic attack (TIA), and cerebral infarction without residual deficits; Z90.710 Acquired absence of both cervix and uterus; Z90.722 Acquired absence of ovaries, bilateral; Z96.653 Presence of artificial knee joint, bilateral; Z99.81 Dependence on supplemental oxygen; Z79.82 Long term (current) use of aspirin; Z79.52 Long term (current) use of systemic steroids; Z79.899 Other long term (current) drug therapy; Z88.8 Allergy status to other drugs, medicaments and biological substances; Z95.3 Presence of xenogenic heart valve; Z68.36 Body mass index [BMI] 36.0-36.9, adult

== ENCOUNTER → 2017-02-27 | Outpatient (REF) | payer MEDICARE, OTHER, MEDICAID ==
[~2017-02-27] MED LIST changes: +ACET650T3 PO; +AMPI500C9 PO; +BYST5TAB2 PO; +CALC1CAP31 PO; +DILT240C PO; +FERR1TAB8 PO; +FURO40TA2 PO; +ISOS1TAB12 PO; +XARE15TA PO
[2017-02-27 13:13] LABS: ALBUMIN 3.8 GM/DL (3.2-5.2); ALBUMIN/GLOBULIN RATIO 1.52 (1.00-1.93); BILIRUBIN,TOTAL 0.4 MG/DL (0.2-1.0); CALCIUM LEVEL 8.9 MG/DL (8.8-10.2); CREATININE FOR GFR 1.44 MG/DL (0.55-1.02); GLOMERULAR FILTRATION RATE 37.5 (>39); TOTAL PROTEIN 6.3 GM/DL (6.4-8.2); URIC ACID 8.2 MG/DL (2.6-6.0)
[2017-02-27 13:16] LABS: MEAN CORPUSCULAR HGB CONC 32.8 g/dl (32.0-36.5); MEAN CORPUSCULAR VOLUME 97.6 fl (80.0-96.0); RED CELL DISTRIBUTION WIDTH 12.7 % (11.5-14.5); WHITE BLOOD COUNT 9.4 10^3/uL (4.0-10.0)
== END ==
LOC: M SFHCADAM 08:19
PROVIDERS: ATTEND Physician Assistant
DX: N18.3 Chronic kidney disease, stage 3 (moderate) (principal); I63.40 Cerebral infarction due to embolism of unspecified cerebral artery; M10.9 Gout, unspecified

== ENCOUNTER → 2017-04-15 | Outpatient (REF) | payer MEDICARE, OTHER, MEDICAID ==
[2017-04-15 13:37] LABS: CREATININE FOR GFR 1.43 MG/DL (0.55-1.02); GLOMERULAR FILTRATION RATE 37.8 (>39)
== END ==
LOC: M SFHCADAM 09:46
PROVIDERS: ATTEND Family Medicine
DX: I50.20 Unspecified systolic (congestive) heart failure (principal)
CPT/HCPCS: 80048; G0463

== ENCOUNTER → 2017-04-16 | Outpatient (REF) | payer MEDICARE, OTHER, MEDICAID ==
[2017-04-16 14:21] LABS: IMMUNOGLOBULIN G 444 MG/DL (681-1648); IMMUNOGLOBULIN M 45.3 MG/DL (40-230)
[2017-04-17 14:05] LABS: ALBUMIN 4.14 GM/DL (3.29-5.55); GAMMA GLOBULIN % 7.7 % (11.1-18.8)
[2017-04-18 00:06] LABS: FREE KAPPA LIGHT CHAINS SERUM 25.7 mg/L (3.3-19.4); FREE LAMBDA LIGHT CHAINS SERUM 27.5 mg/L (5.7-26.3); KAPPA/LAMBDA RATIO SERUM 0.93 (0.26-1.65)
== END ==
LOC: M LAB REF 13:27
PROVIDERS: ATTEND Internal Medicine Medical Oncology
DX: D47.2 Monoclonal gammopathy (principal)

== ENCOUNTER 2017-07-24 09:45 | Day surgery (SDC) | payer MEDICARE, BC, OTHER, MEDICAID ==
[~2017-07-24 09:45] MED LIST changes: -/ASCO250TA PO; -/BENA20TA PO; -/METO5TA PO; -ACET1TAB17 PO; -ACET650T3 PO; +ACETAMINOPHEN 325 MG TAB PO; -ALDA25TA2 PO; -AMLO5TAB2 PO; -AMPI500C9 PO; -ASCO500T PO; -ASPI1TAB PO; -ASPI81TA60 PO; -ATEN100T PO; -ATEN25TA PO; -AUGM875T28 PO; -BACIDCA PO; -BECA1GEL TOP; -BENA20TA2 PO; -BISAC5TA PO; -BYST5TAB2 PO; -CALC1CAP31 PO; -CALC600T7 PO; -CALCTAB68 PO; -CARA1TAB2 PO; -CARD180C4 PO; -CARD60TA3 PO; -CLIN200T PO; -CO Q100C10 PO; -COLA100C5 PO; -COLCPOW6 PO; -COUM1TAB14 PO; -COUM1TAB17 PO; -COUM2.5T17 PO; +CYCLOPENTOLATE 2% OPHTH SOLN 2ML BTL OD; -CYMB1CAP PO; -CYMB1CAP5 PO; -DILT240C PO; -DILT300C46 PO; -EUCECRE2 EX; -FEBU40TA PO; -FERR1TAB8 PO; -FISH1000 PO; -FISH100035 PO; -FOLI1TAB4 PO; -FOLI1TAB86 PO; -FURO40TA2 PO; -GABA300C2 PO; -GABA600T PO; -HEPA100I4 IV; -INDA2.5T PO; -ISOS1TAB12 PO; -LASI40TA PO; -LEVA1TAB PO; -LORA1TAB PO; -MAGN400T5 PO; -METH2.5T PO; -METH5TAB76 PO; +MIDAZOLAM INJ 2 MG/2 ML VIAL (J2250) As Ordered; -MILK10SU PO; -MULTTAB4 PO; -NEUR300C PO; -NORC1TAB4 PO; -OMEP40CA2 PO; -OSCA200T PO; +PHENYLEPHRINE HCL 10 % OPHTH. SOL 5ML OD; -POTA10CA PO; -PRED10TA2 PO; +PROPARACAINE 0.5% OPHTH SOL 15ML OD; -SALI0.9I2 IV; -SLF IV; -SPIR25TA2 PO; -SUCR1TAB56 PO; -SULF1TAB30 PO; -SULF500T2 PO; -SULI200T PO; -TOLT1CAP PO; -TOVI4TAB PO; -TOVI8TAB PO; -TYLE325T5 PO; -VICO5TAB PO; -VICO7.5T PO; -VICO7.5T11 PO; -VITA1CAP40 PO; -VITA200015 PO; -VITA20008 PO; -VITAD1000T PO; -VITMTA PO; -XARE15TA PO; -[UNRECOGNIZED DRUG - CODE] IV; -[UNRECOGNIZED DRUG - CODE] IV; -[UNRECOGNIZED DRUG - OTHER] PR; +fentaNYL 100 MCG/2 ML INJECTION (J3010) As Ordered
[2017-07-24] MEDS ORDERED: TRIMETHOBENZAMIDE 300 MG CAP PO (10:00)
[2017-07-24] MEDS ORDERED: KETOROLAC 0.5% OPHTH SOLN OD (10:00)
[2017-07-24] MEDS ORDERED: PHENYLEPHRINE 2.5% OPHTH SOL 2ML As Ordered (10:55)
[2017-07-24] MEDS ORDERED: CYCLOPENTOLATE 2% OPHTH SOLN 2ML BTL As Ordered (10:55)
[2017-07-24] MEDS ORDERED: TROPICAMIDE 1% OPHTH SOLN 2ML As Ordered (10:55)
[2017-07-24] MEDS ORDERED: OFLOXACIN 0.3 % (OCUFLOX) OPTH SOL 5ML As Ordered (10:55)
[2017-07-24] MEDS: PHENYLEPHRINE 2.5% OPHTH SOL 2ML OD (11:12)
[2017-07-24] MEDS: LIDOCAINE 3.5 % 1ML OPHTH TOPICAL GEL OU (11:12)
[2017-07-24] MEDS: TROPICAMIDE 1% OPHTH SOLN 2ML OD (11:12)
[2017-07-24] MEDS: OFLOXACIN 0.3 % (OCUFLOX) OPTH SOL 5ML OD (11:12)
[2017-07-24] MEDS: POVIDONE-IODINE 5% OPHTH PREP SOL 30ML As Ordered (12:40)
[2017-07-24] MEDS: HEALON DUET (HEALON 10MG/ML 0.55ML & HEALON ENDOCOAT 30MG/ML 0.85ML) As Ordered (12:43)
[2017-07-24] MEDS: BSS with VANC/TOB/EPI for EYE CASES IR (12:43)
[2017-07-24] MEDS: LIDOCAINE 1% SDV 5 ML VIAL As Ordered (12:43)
[2017-07-24] MEDS: MOXIFLOXACIN IN BSS 0.25MG/0.25ML INTRACAMERAL INJ (OR EYE ONLY)(J2280) As Ordered (12:43)
[2017-07-24] MEDS: TRIAMCINOLONE PRES FR 40 MG/ML 1ML(TRIESENCE)(OR EYE ONLY)(J3300 PER 1MG) As Ordered (12:43)
[2017-07-24] MEDS: AcetaZOLAMIDE 500 MG ER CAP PO (13:15)
== END 2017-07-24 13:58 | disposition home or self-care (01) ==
LOC: M SDC 09:45
DX: H26.9 Unspecified cataract (principal); I50.22 Chronic systolic (congestive) heart failure; N18.3 Chronic kidney disease, stage 3 (moderate); E74.9 Disorder of carbohydrate metabolism, unspecified; I63.40 Cerebral infarction due to embolism of unspecified cerebral artery; R60.0 Localized edema; M48.07 Spinal stenosis, lumbosacral region; I48.91 Unspecified atrial fibrillation; R07.9 Chest pain, unspecified; I25.10 Atherosclerotic heart disease of native coronary artery without angina pectoris; I11.0 Hypertensive heart disease with heart failure; K57.32 Diverticulitis of large intestine without perforation or abscess without bleeding; K44.9 Diaphragmatic hernia without obstruction or gangrene; D64.9 Anemia, unspecified; D47.2 Monoclonal gammopathy; E88.81 Metabolic syndrome and other insulin resistance; R29.898 Other symptoms and signs involving the musculoskeletal system; M12.9 Arthropathy, unspecified; M81.0 Age-related osteoporosis without current pathological fracture; F32.9 Major depressive disorder, single episode, unspecified; J44.9 Chronic obstructive pulmonary disease, unspecified; G47.30 Sleep apnea, unspecified; T88.59XD Other complications of anesthesia, subsequent encounter; E66.9 Obesity, unspecified; Z68.37 Body mass index [BMI] 37.0-37.9, adult; Z88.8 Allergy status to other drugs, medicaments and biological substances; Z79.899 Other long term (current) drug therapy; Z79.01 Long term (current) use of anticoagulants; Z86.73 Personal history of transient ischemic attack (TIA), and cerebral infarction without residual deficits; Z90.710 Acquired absence of both cervix and uterus; Z85.41 Personal history of malignant neoplasm of cervix uteri
CPT/HCPCS: 66984

== ENCOUNTER → 2017-08-06 | Outpatient (REF) | payer MEDICARE, OTHER | LOC: M LAB REF 13:01 | DX: N39.0 Urinary tract infection, site not specified (principal) | CPT/HCPCS: 87186 ==

== ENCOUNTER → 2017-08-29 | Outpatient (CLI) | payer MEDICARE, OTHER ==
[2017-08-29 12:03] LABS: HEMATOCRIT 42.1 % (36.0-47.0); HEMOGLOBIN 13.3 g/dl (12.0-15.5); MEAN CORPUSCULAR HEMOGLOBIN 31.6 pg (27.0-33.0); MEAN CORPUSCULAR HGB CONC 31.6 g/dl (32.0-36.5); PLATELET COUNT, AUTOMATED 131 10^3/uL (150-450); RED BLOOD COUNT 4.21 10^6/uL (4.00-5.40); RED CELL DISTRIBUTION WIDTH 14.5 % (11.5-14.5); WHITE BLOOD COUNT 10.3 10^3/uL (4.0-10.0)
[2017-08-29 12:35] LABS: ALBUMIN/GLOBULIN RATIO 1.74 (1.00-1.93); ALKALINE PHOSPHATASE 99 U/L (45-117); ALT/SGPT 18 U/L (12-78); ANION GAP 8 MEQ/L (8-16); AST/SGOT 18 U/L (7-37); BILIRUBIN,TOTAL 0.5 MG/DL (0.2-1.0); BLOOD UREA NITROGEN 55 MG/DL (7-18); CALCIUM LEVEL 9.3 MG/DL (8.8-10.2); CARBON DIOXIDE LEVEL 30 MEQ/L (21-32); CHLORIDE LEVEL 102 MEQ/L (98-107); CHOLESTEROL LEVEL 174 MG/DL (<200); CHOLESTEROL RISK RATIO 3.052 (<5); CREATININE FOR GFR 1.77 MG/DL (0.55-1.30); GLOMERULAR FILTRATION RATE 29.5 (>39); GLUCOSE, FASTING 116 MG/DL (70-100); HDL CHOLESTEROL 57 MG/DL (>40); NON-HDL-C 117 MG/DL; POTASSIUM SERUM 4.2 MEQ/L (3.5-5.1); SODIUM LEVEL 140 MEQ/L (136-145); TOTAL PROTEIN 6.3 GM/DL (6.4-8.2); TRIGLYCERIDES LEVEL 105 MG/DL (<150)
[2017-08-29 12:48] LABS: ESTIMATED AVERAGE GLUCOSE 85 MG/DL (60-110); HEMOGLOBIN A1c 4.6 %
== END ==
LOC: M WUC 09:10
DX: N18.3 Chronic kidney disease, stage 3 (moderate) (principal); E78.2 Mixed hyperlipidemia
CPT/HCPCS: 80053

== ENCOUNTER 2017-09-11 08:10 | Day surgery (SDC) | payer MEDICARE, BC, OTHER ==
[~2017-09-11 08:10] MED LIST changes: -CYCLOPENTOLATE 2% OPHTH SOLN 2ML BTL OD; -MIDAZOLAM INJ 2 MG/2 ML VIAL (J2250) As Ordered; -PHENYLEPHRINE HCL 10 % OPHTH. SOL 5ML OD; +PHENYLEPHRINE HCL 10 % OPHTH. SOL 5ML OS; -PROPARACAINE 0.5% OPHTH SOL 15ML OD; -fentaNYL 100 MCG/2 ML INJECTION (J3010) As Ordered
[2017-09-11] MEDS: LIDOCAINE 3.5 % 1ML OPHTH TOPICAL GEL OU (10:12)
[2017-09-11] MEDS: OFLOXACIN 0.3 % (OCUFLOX) OPTH SOL 5ML OS (10:12)
[2017-09-11] MEDS: PHENYLEPHRINE 2.5% OPHTH SOL 2ML OS (10:13)
[2017-09-11] MEDS: TROPICAMIDE 1% OPHTH SOLN 2ML OS (10:13)
[2017-09-11] MEDS: CYCLOPENTOLATE 2% OPHTH SOLN 2ML BTL OS (10:13)
[2017-09-11] MEDS ORDERED: MIDAZOLAM INJ 2 MG/2 ML VIAL (J2250) As Ordered (10:34)
[2017-09-11] MEDS ORDERED: fentaNYL 100 MCG/2 ML INJECTION (J3010) As Ordered (10:34)
[2017-09-11] MEDS: LIDOCAINE 1% SDV 5 ML VIAL As Ordered (11:14)
[2017-09-11] MEDS: POVIDONE-IODINE 5% OPHTH PREP SOL 30ML As Ordered (11:14)
[2017-09-11] MEDS: TRIAMCINOLONE PRES FR 40 MG/ML 1ML(TRIESENCE)(OR EYE ONLY)(J3300 PER 1MG) As Ordered (11:15)
[2017-09-11] MEDS: HEALON DUET (HEALON 10MG/ML 0.55ML & HEALON ENDOCOAT 30MG/ML 0.85ML) As Ordered (11:15)
[2017-09-11] MEDS: BSS with VANC/TOB/EPI for EYE CASES IR (11:15)
[2017-09-11] MEDS: MOXIFLOXACIN IN BSS 0.25MG/0.25ML INTRACAMERAL INJ (OR EYE ONLY)(J2280) As Ordered (11:15)
[2017-09-11] MEDS: AcetaZOLAMIDE 500 MG ER CAP PO (11:51)
[2017-09-11] MEDS ORDERED: TRIMETHOBENZAMIDE 300 MG CAP PO (12:00)
== END 2017-09-11 12:14 | disposition home or self-care (01) ==
LOC: M SDC 08:10
DX: H26.9 Unspecified cataract (principal); G47.62 Sleep related leg cramps; R60.0 Localized edema; I50.22 Chronic systolic (congestive) heart failure; N18.3 Chronic kidney disease, stage 3 (moderate); I48.91 Unspecified atrial fibrillation; I25.10 Atherosclerotic heart disease of native coronary artery without angina pectoris; D64.9 Anemia, unspecified; G47.30 Sleep apnea, unspecified; K44.9 Diaphragmatic hernia without obstruction or gangrene; D47.2 Monoclonal gammopathy; M10.9 Gout, unspecified; E78.2 Mixed hyperlipidemia; I63.40 Cerebral infarction due to embolism of unspecified cerebral artery; G62.9 Polyneuropathy, unspecified; M06.9 Rheumatoid arthritis, unspecified; M48.07 Spinal stenosis, lumbosacral region; M50.33 Other cervical disc degeneration, cervicothoracic region; Z99.3 Dependence on wheelchair; Z79.899 Other long term (current) drug therapy; Z79.01 Long term (current) use of anticoagulants; Z88.8 Allergy status to other drugs, medicaments and biological substances; Z86.14 Personal history of Methicillin resistant Staphylococcus aureus infection
CPT/HCPCS: 66984

== ENCOUNTER → 2017-09-18 | Outpatient (CLI) | payer MEDICARE, BC, OTHER, MEDICAID ==
[2017-09-18 17:47] LABS: BASO # 0.1 10^3/uL (0.0-0.2); BASO % 0.4 % (0.0-1.0); EOS # 0.1 10^3/uL (0.0-0.50); EOS % 0.9 % (0.0-3.0); HEMATOCRIT 42.5 % (36.0-47.0); HEMOGLOBIN 13.7 g/dl (12.0-15.5); IMMATURE GRANULOCYTE % 0.6 % (0-3.0); LYMPH # 3.6 10^3/uL (1.5-4.5); LYMPH % 30.9 % (24.0-44.0); MEAN CORPUSCULAR HEMOGLOBIN 32.4 pg (27.0-33.0); MEAN CORPUSCULAR HGB CONC 32.2 g/dl (32.0-36.5); MEAN CORPUSCULAR VOLUME 100.5 fl (80.0-96.0); MONO # 0.9 10^3/uL (0.0-0.8); NEUTROPHILS # 6.8 10^3/uL (1.8-7.7); NEUTROPHILS % 59.2 % (36.0-66.0); PLATELET COUNT, AUTOMATED 131 10^3/uL (150-450); RED BLOOD COUNT 4.23 10^6/uL (4.00-5.40); RED CELL DISTRIBUTION WIDTH 14.6 % (11.5-14.5); WHITE BLOOD COUNT 11.5 10^3/uL (4.0-10.0)
[2017-09-18 18:57] LABS: ALBUMIN 3.9 GM/DL (3.2-5.2); ALBUMIN/GLOBULIN RATIO 1.63 (1.00-1.93); ALKALINE PHOSPHATASE 102 U/L (45-117); ALT/SGPT 21 U/L (12-78); ANION GAP 7 MEQ/L (8-16); AST/SGOT 24 U/L (7-37); BILIRUBIN,TOTAL 0.6 MG/DL (0.2-1.0); BLOOD UREA NITROGEN 56 MG/DL (7-18); CALCIUM LEVEL 8.7 MG/DL (8.8-10.2); CARBON DIOXIDE LEVEL 30 MEQ/L (21-32); CHLORIDE LEVEL 102 MEQ/L (98-107); CREATININE FOR GFR 1.75 MG/DL (0.55-1.30); FREE T4 0.84 NG/DL (0.76-1.46); GLOMERULAR FILTRATION RATE 29.8 (>39); GLUCOSE, FASTING 119 MG/DL (70-100); POTASSIUM SERUM 4.2 MEQ/L (3.5-5.1); SODIUM LEVEL 139 MEQ/L (136-145); TOTAL PROTEIN 6.3 GM/DL (6.4-8.2)
== END ==
LOC: M LAB 16:21
DX: R06.00 Dyspnea, unspecified (principal); R53.1 Weakness; I73.9 Peripheral vascular disease, unspecified; W19.XXXA Unspecified fall, initial encounter; X58.XXXA Exposure to other specified factors, initial encounter; Y92.9 Unspecified place or not applicable; Y93.9 Activity, unspecified
CPT/HCPCS: 71046

== ENCOUNTER → 2017-09-19 | Outpatient (REF) | payer MEDICARE, BC, OTHER, MEDICAID ==
[2017-09-19 18:26] LABS: APPEARANCE, URINE CLEAR (CLEAR); BACTERIA, URINE AUTO NEGATIVE (NEGATIVE); BILIRUBIN, URINE AUTO NEGATIVE (NEGATIVE); BLOOD, URINE BLOOD NEGATIVE (NEGATIVE); COLOR, URINE YELLOW (YELLOW); GLUCOSE, URINE (UA) AUTO NEGATIVE (NEGATIVE); KETONE, URINE AUTO NEGATIVE (NEGATIVE); LEUKOCYTE ESTERASE, URINE AUTO NEGATIVE (NEGATIVE); NITRITE, URINE AUTO NEGATIVE (NEGATIVE); PROTEIN, URINE AUTO 2+ mg/dL (NEGATIVE); RBC, URINE AUTO 0 /HPF (0-3); SPECIFIC GRAVITY URINE AUTO 1.014 (1.002-1.035); SQUAMOUS EPITHELIAL CELL UR AU 2 /HPF (0-6); TRANSITIONAL EPITHELIAL AUTO <1 /HPF; UROBILINOGEN, URINE AUTO 0.2 mg/dL (0.0-2.0); WBC, URINE AUTO 2 /HPF (0-3)
== END ==
LOC: M SFHCADAM 17:17
DX: R53.1 Weakness (principal)
CPT/HCPCS: 81001

== ENCOUNTER → 2017-10-15 | Outpatient (REF) | payer MEDICARE, BC, OTHER, MEDICAID ==
[2017-10-15 14:51] LABS: IMMUNOGLOBULIN G 414 MG/DL (681-1648); IMMUNOGLOBULIN M 42.7 MG/DL (40-230); TOTAL PROTEIN 6.3 GM/DL (6.4-8.2)
[2017-10-17 00:10] LABS: FREE KAPPA LIGHT CHAINS SERUM 29.3 mg/L (3.3-19.4); FREE LAMBDA LIGHT CHAINS SERUM 27.6 mg/L (5.7-26.3); KAPPA/LAMBDA RATIO SERUM 1.06 (0.26-1.65)
[2017-10-17 14:11] LABS: ALBUMIN % 69.2 % (55.8-66.1); ALPHA-1-GLOBULIN % 5.3 % (2.9-4.9); BETA-1-GLOBULINS % 5.5 % (4.7-7.2); BETA-2-GLOBULINS % 3.8 % (3.2-6.5); GAMMA GLOBULIN % 7.2 % (11.1-18.8)
[2017-10-17 14:12] LABS: ALBUMIN 4.36 GM/DL (3.29-5.55); ALPHA-1-GLOBULINS 0.33 GM/DL (0.17-0.41); ALPHA-2-GLOBULINS 0.57 GM/DL (0.42-0.99); BETA-1-GLOBULINS 0.35 GM/DL (0.28-0.60); BETA-2-GLOBULINS 0.24 GM/DL (0.19-0.55); GAMMA GLOBULINS 0.45 GM/DL (0.65-1.58)
== END ==
LOC: M LAB REF 13:42
DX: D50.9 Iron deficiency anemia, unspecified (principal)
CPT/HCPCS: 84165

== ENCOUNTER 2017-11-06 14:51 | Emergency (ER) | payer MEDICARE, BC, OTHER, MEDICAID ==
[2017-11-06] MEDS: NORCO, ANEXSIA 5/325MG TABLET (HYDROcodone/ACETAMINOPHEN) PO ×2 (16:16)
== END 2017-11-06 17:15 | disposition home or self-care (01) ==
LOC: M ED 14:51
DX: S09.90XA Unspecified injury of head, initial encounter (principal); S29.9XXA Unspecified injury of thorax, initial encounter; W01.10XA Fall on same level from slipping, tripping and stumbling with subsequent striking against unspecified object, initial encounter; Y92.009 Unspecified place in unspecified non-institutional (private) residence as the place of occurrence of the external cause; I50.9 Heart failure, unspecified; N18.3 Chronic kidney disease, stage 3 (moderate); I13.0 Hypertensive heart and chronic kidney disease with heart failure and stage 1 through stage 4 chronic kidney disease, or unspecified chronic kidney disease; E78.5 Hyperlipidemia, unspecified; M54.32 Sciatica, left side; M47.812 Spondylosis without myelopathy or radiculopathy, cervical region; M50.21 Other cervical disc displacement, high cervical region; M50.021 Cervical disc disorder at C4-C5 level with myelopathy; M50.022 Cervical disc disorder at C5-C6 level with myelopathy; M50.023 Cervical disc disorder at C6-C7 level with myelopathy; M41.9 Scoliosis, unspecified; F33.9 Major depressive disorder, recurrent, unspecified; Z79.01 Long term (current) use of anticoagulants; Z79.899 Other long term (current) drug therapy; Z96.9 Presence of functional implant, unspecified; Z98.890 Other specified postprocedural states
CPT/HCPCS: 70450

== ENCOUNTER → 2017-11-08 | Outpatient (REF) | payer MEDICARE, OTHER, MEDICAID ==
[2017-11-08 14:03] LABS: APPEARANCE, URINE TURBID (CLEAR); BACTERIA, URINE AUTO 1+ (NEGATIVE); BILIRUBIN, URINE AUTO NEGATIVE (NEGATIVE); BLOOD, URINE BLOOD 1+ (NEGATIVE); COLOR, URINE AMBER (YELLOW); GLUCOSE, URINE (UA) AUTO NEGATIVE (NEGATIVE); KETONE, URINE AUTO NEGATIVE (NEGATIVE); LEUKOCYTE ESTERASE, URINE AUTO 3+ (NEGATIVE); NITRITE, URINE AUTO NEGATIVE (NEGATIVE); PROTEIN, URINE AUTO 2+ mg/dL (NEGATIVE); RBC, URINE AUTO 36 /HPF (0-3); SPECIFIC GRAVITY URINE AUTO 1.016 (1.002-1.035); SQUAMOUS EPITHELIAL CELL UR AU 2 /HPF (0-6); TRANSITIONAL EPITHELIAL AUTO 1 /HPF; UROBILINOGEN, URINE AUTO 0.2 mg/dL (0.0-2.0); WBC, URINE AUTO TNTC /HPF (0-3)
== END ==
LOC: M LAB REF 13:12
DX: N18.3 Chronic kidney disease, stage 3 (moderate) (principal); N39.0 Urinary tract infection, site not specified; N32.81 Overactive bladder

== ENCOUNTER 2017-11-10 17:23 | Inpatient (IN) | payer MEDICARE, BC, OTHER, MEDICAID ==
[~2017-11-10 17:23] MED LIST changes: -ACETAMINOPHEN 325 MG TAB PO; +DOCUSATE SODIUM 100 MG CAP PO; -PHENYLEPHRINE HCL 10 % OPHTH. SOL 5ML OS
[2017-11-10 18:43] LABS: BASO % 0.4 % (0.0-1.0); EOS # 0.1 10^3/uL (0.0-0.50); EOS % 0.8 % (0.0-3.0); HEMATOCRIT 40.4 % (36.0-47.0); HEMOGLOBIN 12.9 g/dl (12.0-15.5); IMMATURE GRANULOCYTE % 0.5 % (0-3.0); LYMPH # 2.9 10^3/uL (1.5-4.5); LYMPH % 26.8 % (24.0-44.0); MEAN CORPUSCULAR HEMOGLOBIN 31.9 pg (27.0-33.0); MEAN CORPUSCULAR HGB CONC 31.9 g/dl (32.0-36.5); MONO # 1.1 10^3/uL (0.0-0.8); MONO % 9.9 % (0.0-5.0); NEUTROPHILS # 6.6 10^3/uL (1.8-7.7); NEUTROPHILS % 61.6 % (36.0-66.0); PLATELET COUNT, AUTOMATED 114 10^3/uL (150-450); RED BLOOD COUNT 4.04 10^6/uL (4.00-5.40); RED CELL DISTRIBUTION WIDTH 13.6 % (11.5-14.5); WHITE BLOOD COUNT 10.7 10^3/uL (4.0-10.0)
[2017-11-10 19:10] LABS: LACTIC ACID SEPSIS PROTOCOL 1.6 MMOL/L (0.4-2.0)
[2017-11-10 19:48] LABS: INR 1.32; PROTHROMBIN TIME 16.7 SECONDS (12.4-14.5)
[2017-11-10 20:10] LABS: ALBUMIN 3.5 GM/DL (3.2-5.2); ALBUMIN/GLOBULIN RATIO 1.21 (1.00-1.93); ALKALINE PHOSPHATASE 93 U/L (45-117); ALT/SGPT 31 U/L (12-78); ANION GAP 7 MEQ/L (8-16); AST/SGOT 26 U/L (7-37); BILIRUBIN,DIRECT 0.1 MG/DL (0.0-0.2); BILIRUBIN,TOTAL 0.4 MG/DL (0.2-1.0); BLOOD UREA NITROGEN 47 MG/DL (7-18); CALCIUM LEVEL 9.1 MG/DL (8.8-10.2); CARBON DIOXIDE LEVEL 28 MEQ/L (21-32); CHLORIDE LEVEL 101 MEQ/L (98-107); CPK CREATINE PHOSPHOKINASE 50 U/L (26-192); CREATININE FOR GFR 1.48 MG/DL (0.55-1.30); GLOMERULAR FILTRATION RATE 36.2 (>39); GLUCOSE, FASTING 93 MG/DL (70-100); POTASSIUM SERUM 5.1 MEQ/L (3.5-5.1); SODIUM LEVEL 136 MEQ/L (136-145); THYROXINE (T4) 5.9 UG/DL (4.5-12.0); TOTAL PROTEIN 6.4 GM/DL (6.4-8.2); TROPONIN I < 0.02 NG/ML (< 0.10)
[2017-11-10 20:16] LABS: CK-MB VALUE MASS 3.2 NG/ML (<3.6); NT-PRO BNP 5612 PG/ML (<450)
[2017-11-10] MEDS ORDERED: ENOXAPARIN 30 MG/0.3 ML SYR (J1650) SC (21:00)
[2017-11-10] MEDS: FUROSEMIDE 40 MG/4 ML VIAL (J1940) IV (21:02)
[2017-11-10] MEDS: ACETAMINOPHEN TAB 650MG DOSE (2X325MG) PO (22:27)
[2017-11-10] MEDS: OMEPRAZOLE 20 MG CAP PO (23:16)
[2017-11-10] MEDS: RIVAROXABAN 15 MG TAB (XARELTO) PO (23:16)
[2017-11-10] MEDS: GABAPENTIN 300 MG CAP PO (23:16)
[2017-11-10] MEDS: DOCUSATE SODIUM 100 MG CAP PO (23:16)
[2017-11-10] MEDS: POTASSIUM CHLORIDE 10 MEQ SR TABLET PO (23:16)
[2017-11-10] MEDS: rOPINIRole 1MG TAB PO (23:29)
[2017-11-10] MEDS: ISOSORBIDE MONONITRATE 10MG TABLET PO (23:30)
[2017-11-10] MEDS ORDERED: PILL CRUSHER/CUTTER 1 EACH XX (23:30)
[2017-11-11 05:54] LABS: BASO % 0.5 % (0.0-1.0); EOS # 0.1 10^3/uL (0.0-0.50); HEMATOCRIT 38.6 % (36.0-47.0); HEMOGLOBIN 12.4 g/dl (12.0-15.5); IMMATURE GRANULOCYTE % 0.5 % (0-3.0); LYMPH # 2.7 10^3/uL (1.5-4.5); LYMPH % 33.4 % (24.0-44.0); MEAN CORPUSCULAR HGB CONC 32.1 g/dl (32.0-36.5); MEAN CORPUSCULAR VOLUME 99.7 fl (80.0-96.0); MONO # 0.7 10^3/uL (0.0-0.8); MONO % 8.7 % (0.0-5.0); NEUTROPHILS # 4.5 10^3/uL (1.8-7.7); NEUTROPHILS % 55.9 % (36.0-66.0); PLATELET COUNT, AUTOMATED 106 10^3/uL (150-450); RED BLOOD COUNT 3.87 10^6/uL (4.00-5.40); RED CELL DISTRIBUTION WIDTH 13.6 % (11.5-14.5)
[2017-11-11 06:21] LABS: MAGNESIUM LEVEL 2.2 MG/DL (1.8-2.4)
[2017-11-11] MEDS: FUROSEMIDE 40 MG/4 ML VIAL (J1940) IV (08:52)
[2017-11-11] MEDS: OMEPRAZOLE 20 MG CAP PO ×2 (08:52→20:11)
[2017-11-11] MEDS: TOLTERODINE TARTRATE 2 MG LA CAP (DETROL LA) PO (08:53)
[2017-11-11] MEDS: VENLAFAXINE **XR** 75MG CAPSULE PO (08:53)
[2017-11-11] MEDS: FEBUXOSTAT 40 MG TABLET (ULORIC) PO (08:53)
[2017-11-11] MEDS: ISOSORBIDE MONONITRATE 10MG TABLET PO ×2 (08:54→16:19)
[2017-11-11] MEDS: DOCUSATE SODIUM 100 MG CAP PO ×2 (08:54→20:11)
[2017-11-11] MEDS: rOPINIRole 1MG TAB PO ×2 (08:54→20:11)
[2017-11-11] MEDS: GABAPENTIN 300 MG CAP PO ×2 (08:55→20:11)
[2017-11-11] MEDS: FOLIC ACID 1 MG TAB PO (08:55)
[2017-11-11] MEDS: MAGNESIUM OXIDE 400 MG TAB (MAG-OX) PO (08:56)
[2017-11-11] MEDS: NEBIVOLOL 5 MG TAB (BYSTOLIC) PO (08:56)
[2017-11-11] MEDS: POTASSIUM CHLORIDE 10 MEQ SR TABLET PO ×2 (08:57→20:11)
[2017-11-11] MEDS: SPIRONOLACTONE 25 MG TAB PO ×2 (09:57→16:20)
[2017-11-11] MEDS: FUROSEMIDE 20 MG TAB PO (16:19)
[2017-11-11] MEDS: RIVAROXABAN 15 MG TAB (XARELTO) PO (17:14)
[2017-11-12] MEDS: ACETAMINOPHEN TAB 650MG DOSE (2X325MG) PO ×2 (00:06→20:40)
[2017-11-12] MEDS: TOLTERODINE TARTRATE 2 MG LA CAP (DETROL LA) PO (08:32)
[2017-11-12] MEDS: VENLAFAXINE **XR** 75MG CAPSULE PO (08:33)
[2017-11-12] MEDS: ISOSORBIDE MONONITRATE 10MG TABLET PO ×2 (08:33→16:37)
[2017-11-12] MEDS: FUROSEMIDE 20 MG TAB PO ×2 (08:34→16:36)
[2017-11-12] MEDS: FEBUXOSTAT 40 MG TABLET (ULORIC) PO (08:34)
[2017-11-12] MEDS: rOPINIRole 1MG TAB PO ×2 (08:34→20:35)
[2017-11-12] MEDS: OMEPRAZOLE 20 MG CAP PO ×2 (08:34→20:36)
[2017-11-12] MEDS: GABAPENTIN 300 MG CAP PO ×2 (08:35→20:35)
[2017-11-12] MEDS: FOLIC ACID 1 MG TAB PO (08:36)
[2017-11-12] MEDS: MAGNESIUM OXIDE 400 MG TAB (MAG-OX) PO (08:36)
[2017-11-12] MEDS: SPIRONOLACTONE 25 MG TAB PO ×2 (08:36→16:36)
[2017-11-12] MEDS: POTASSIUM CHLORIDE 10 MEQ SR TABLET PO ×2 (08:36→20:35)
[2017-11-12] MEDS: NEBIVOLOL 5 MG TAB (BYSTOLIC) PO (08:36)
[2017-11-12] MEDS: DOCUSATE SODIUM 100 MG CAP PO ×2 (08:36→20:35)
[2017-11-12] MEDS: RIVAROXABAN 15 MG TAB (XARELTO) PO (17:35)
[2017-11-13 06:23] LABS: HEMATOCRIT 37.4 % (36.0-47.0); HEMOGLOBIN 12.4 g/dl (12.0-15.5); MEAN CORPUSCULAR HEMOGLOBIN 32.7 pg (27.0-33.0); MEAN CORPUSCULAR HGB CONC 33.2 g/dl (32.0-36.5); MEAN CORPUSCULAR VOLUME 98.7 fl (80.0-96.0); PLATELET COUNT, AUTOMATED 112 10^3/uL (150-450); RED BLOOD COUNT 3.79 10^6/uL (4.00-5.40); RED CELL DISTRIBUTION WIDTH 13.7 % (11.5-14.5)
[2017-11-13 06:38] LABS: ANION GAP 8 MEQ/L (8-16); BLOOD UREA NITROGEN 53 MG/DL (7-18); CALCIUM LEVEL 8.5 MG/DL (8.8-10.2); CARBON DIOXIDE LEVEL 30 MEQ/L (21-32); CHLORIDE LEVEL 103 MEQ/L (98-107); GLOMERULAR FILTRATION RATE 33.1 (>39); GLUCOSE, FASTING 109 MG/DL (70-100); POTASSIUM SERUM 4.1 MEQ/L (3.5-5.1); SODIUM LEVEL 141 MEQ/L (136-145)
[2017-11-13 08:20] LABS: ALBUMIN 3.1 GM/DL (3.2-5.2); ALBUMIN/GLOBULIN RATIO 1.24 (1.00-1.93); AST/SGOT 13 U/L (7-37); BILIRUBIN,TOTAL 0.3 MG/DL (0.2-1.0); TOTAL PROTEIN 5.6 GM/DL (6.4-8.2)
[2017-11-13 08:48] LABS: ALKALINE PHOSPHATASE 86 U/L (45-117); ALT/SGPT 25 U/L (12-78)
[2017-11-13] MEDS: GABAPENTIN 300 MG CAP PO ×2 (08:54→20:11)
[2017-11-13] MEDS: FEBUXOSTAT 40 MG TABLET (ULORIC) PO (08:54)
[2017-11-13] MEDS: TOLTERODINE TARTRATE 2 MG LA CAP (DETROL LA) PO (08:54)
[2017-11-13] MEDS: rOPINIRole 1MG TAB PO ×2 (08:54→20:11)
[2017-11-13] MEDS: OMEPRAZOLE 20 MG CAP PO ×2 (08:54→20:11)
[2017-11-13] MEDS: FUROSEMIDE 20 MG TAB PO ×2 (08:55→16:52)
[2017-11-13] MEDS: POTASSIUM CHLORIDE 10 MEQ SR TABLET PO ×2 (08:56→20:10)
[2017-11-13] MEDS: NEBIVOLOL 5 MG TAB (BYSTOLIC) PO (08:56)
[2017-11-13] MEDS: ISOSORBIDE MONONITRATE 10MG TABLET PO ×2 (08:56→20:10)
[2017-11-13] MEDS: DOCUSATE SODIUM 100 MG CAP PO ×2 (08:56→20:10)
[2017-11-13] MEDS: SPIRONOLACTONE 25 MG TAB PO ×2 (08:56→16:52)
[2017-11-13] MEDS: VENLAFAXINE **XR** 75MG CAPSULE PO (08:56)
[2017-11-13] MEDS: FOLIC ACID 1 MG TAB PO (08:56)
[2017-11-13] MEDS: MAGNESIUM OXIDE 400 MG TAB (MAG-OX) PO (08:57)
[2017-11-13] MEDS ORDERED: SLF 3 ML SYR IV (12:30)
[2017-11-13] MEDS: SLF 3 ML SYR IV ×3 (14:00→22:00)
[2017-11-13] MEDS: RIVAROXABAN 15 MG TAB (XARELTO) PO (16:53)
[2017-11-13] MEDS: ACETAMINOPHEN TAB 650MG DOSE (2X325MG) PO (20:16)
[2017-11-14] MEDS: SLF 3 ML SYR IV ×3 (05:13→19:19)
[2017-11-14 07:16] LABS: ANION GAP 10 MEQ/L (8-16); BLOOD UREA NITROGEN 50 MG/DL (7-18); CALCIUM LEVEL 8.6 MG/DL (8.8-10.2); CARBON DIOXIDE LEVEL 29 MEQ/L (21-32); CHLORIDE LEVEL 105 MEQ/L (98-107); CREATININE FOR GFR 1.59 MG/DL (0.55-1.30); GLOMERULAR FILTRATION RATE 33.3 (>39); GLUCOSE, FASTING 117 MG/DL (70-100); POTASSIUM SERUM 4.1 MEQ/L (3.5-5.1); SODIUM LEVEL 144 MEQ/L (136-145)
[2017-11-14] MEDS: SPIRONOLACTONE 25 MG TAB PO ×2 (08:20→16:38)
[2017-11-14] MEDS: GABAPENTIN 300 MG CAP PO ×2 (08:20→21:15)
[2017-11-14] MEDS: MAGNESIUM OXIDE 400 MG TAB (MAG-OX) PO (08:20)
[2017-11-14] MEDS: FUROSEMIDE 20 MG TAB PO ×2 (08:20→16:38)
[2017-11-14] MEDS: ISOSORBIDE MONONITRATE 10MG TABLET PO ×2 (08:21→16:38)
[2017-11-14] MEDS: POTASSIUM CHLORIDE 10 MEQ SR TABLET PO ×2 (08:21→21:15)
[2017-11-14] MEDS: FOLIC ACID 1 MG TAB PO (08:21)
[2017-11-14] MEDS: DOCUSATE SODIUM 100 MG CAP PO ×2 (08:21→21:15)
[2017-11-14] MEDS: OMEPRAZOLE 20 MG CAP PO ×2 (08:21→21:15)
[2017-11-14] MEDS: NEBIVOLOL 5 MG TAB (BYSTOLIC) PO (08:21)
[2017-11-14] MEDS: VENLAFAXINE **XR** 75MG CAPSULE PO (08:22)
[2017-11-14] MEDS: FEBUXOSTAT 40 MG TABLET (ULORIC) PO (08:22)
[2017-11-14] MEDS: TOLTERODINE TARTRATE 2 MG LA CAP (DETROL LA) PO (08:22)
[2017-11-14] MEDS: rOPINIRole 1MG TAB PO ×2 (08:25→21:16)
[2017-11-14] MEDS: ACETAMINOPHEN TAB 650MG DOSE (2X325MG) PO (13:03)
[2017-11-14] MEDS: RIVAROXABAN 15 MG TAB (XARELTO) PO (16:38)
[2017-11-15 06:58] LABS: ANION GAP 8 MEQ/L (8-16); BLOOD UREA NITROGEN 58 MG/DL (7-18); CALCIUM LEVEL 8.6 MG/DL (8.8-10.2); CARBON DIOXIDE LEVEL 30 MEQ/L (21-32); CHLORIDE LEVEL 105 MEQ/L (98-107); GLOMERULAR FILTRATION RATE 33.1 (>39); GLUCOSE, FASTING 110 MG/DL (70-100); SODIUM LEVEL 143 MEQ/L (136-145)
[2017-11-15] MEDS: DOCUSATE SODIUM 100 MG CAP PO (09:09)
[2017-11-15] MEDS: rOPINIRole 1MG TAB PO (09:09)
[2017-11-15] MEDS: ISOSORBIDE MONONITRATE 10MG TABLET PO (09:09)
[2017-11-15] MEDS: MAGNESIUM OXIDE 400 MG TAB (MAG-OX) PO (09:09)
[2017-11-15] MEDS: SPIRONOLACTONE 25 MG TAB PO (09:10)
[2017-11-15] MEDS: FOLIC ACID 1 MG TAB PO (09:11)
[2017-11-15] MEDS: GABAPENTIN 300 MG CAP PO (09:11)
[2017-11-15] MEDS: FUROSEMIDE 20 MG TAB PO (09:11)
[2017-11-15] MEDS: NEBIVOLOL 5 MG TAB (BYSTOLIC) PO (09:11)
[2017-11-15] MEDS: OMEPRAZOLE 20 MG CAP PO (09:11)
[2017-11-15] MEDS: POTASSIUM CHLORIDE 10 MEQ SR TABLET PO (09:12)
[2017-11-15] MEDS: FEBUXOSTAT 40 MG TABLET (ULORIC) PO (09:12)
[2017-11-15] MEDS: VENLAFAXINE **XR** 75MG CAPSULE PO (09:21)
[2017-11-15] MEDS: TOLTERODINE TARTRATE 2 MG LA CAP (DETROL LA) PO (09:21)
== END 2017-11-15 12:22 | DRG 291 ==
LOC: M MSPAV 11-13 15:05 → M ED 17:23 → M ED INP 20:38 → M PCU 22:48
DX: I13.0 Hypertensive heart and chronic kidney disease with heart failure and stage 1 through stage 4 chronic kidney disease, or unspecified chronic kidney disease (principal); I50.33 Acute on chronic diastolic (congestive) heart failure; L89.893 Pressure ulcer of other site, stage 3; N39.0 Urinary tract infection, site not specified; N25.81 Secondary hyperparathyroidism of renal origin; N18.3 Chronic kidney disease, stage 3 (moderate); N32.81 Overactive bladder; E66.01 Morbid (severe) obesity due to excess calories; I48.2 Chronic atrial fibrillation; M06.9 Rheumatoid arthritis, unspecified; G62.9 Polyneuropathy, unspecified; R29.6 Repeated falls; E78.5 Hyperlipidemia, unspecified; Z86.73 Personal history of transient ischemic attack (TIA), and cerebral infarction without residual deficits; Z95.3 Presence of xenogenic heart valve; Z79.899 Other long term (current) drug therapy; Z79.01 Long term (current) use of anticoagulants; Z88.8 Allergy status to other drugs, medicaments and biological substances; Z90.710 Acquired absence of both cervix and uterus; Z98.1 Arthrodesis status; Z96.653 Presence of artificial knee joint, bilateral; Z68.38 Body mass index [BMI] 38.0-38.9, adult

== ENCOUNTER → 2018-04-03 | Outpatient (REF) | payer MEDICARE, OTHER, MEDICAID ==
[2018-04-03 13:50] LABS: HEMATOCRIT 41.5 % (36.0-47.0); HEMOGLOBIN 12.9 g/dl (12.0-15.5); MEAN CORPUSCULAR HEMOGLOBIN 31.2 pg (27.0-33.0); MEAN CORPUSCULAR HGB CONC 31.1 g/dl (32.0-36.5); MEAN CORPUSCULAR VOLUME 100.2 fl (80.0-96.0); PLATELET COUNT, AUTOMATED 137 10^3/uL (150-450); RED BLOOD COUNT 4.14 10^6/uL (4.00-5.40); RED CELL DISTRIBUTION WIDTH 15.4 % (11.5-14.5); WHITE BLOOD COUNT 10.3 10^3/uL (4.0-10.0)
[2018-04-03 14:09] LABS: ALBUMIN 3.8 GM/DL (3.2-5.2); ALBUMIN/GLOBULIN RATIO 1.58 (1.00-1.93); ALKALINE PHOSPHATASE 106 U/L (45-117); ALT/SGPT 20 U/L (12-78); ANION GAP 8 MEQ/L (8-16); AST/SGOT 20 U/L (7-37); BILIRUBIN,TOTAL 0.4 MG/DL (0.2-1.0); BLOOD UREA NITROGEN 53 MG/DL (7-18); CALCIUM LEVEL 9.5 MG/DL (8.8-10.2); CARBON DIOXIDE LEVEL 29 MEQ/L (21-32); CHLORIDE LEVEL 102 MEQ/L (98-107); CHOLESTEROL LEVEL 190 MG/DL (<200); CHOLESTEROL RISK RATIO 3.392 (<5); CREATININE FOR GFR 1.73 MG/DL (0.55-1.30); GLOMERULAR FILTRATION RATE 30.2 (>39); GLUCOSE, FASTING 121 MG/DL (70-100); HDL CHOLESTEROL 56 MG/DL (>40); LDL CHOLESTEROL 108 MG/DL (<100); NON-HDL-C 134 MG/DL; POTASSIUM SERUM 4.4 MEQ/L (3.5-5.1); SODIUM LEVEL 139 MEQ/L (136-145); TOTAL PROTEIN 6.2 GM/DL (6.4-8.2); TRIGLYCERIDES LEVEL 130 MG/DL (<150); URIC ACID 7.8 MG/DL (2.6-6.0)
[2018-04-03 17:09] LABS: ESTIMATED AVERAGE GLUCOSE 77 MG/DL (60-110); HEMOGLOBIN A1c 4.3 %
== END ==
LOC: M SFHCADAM 09:21
DX: I50.22 Chronic systolic (congestive) heart failure (principal); N18.3 Chronic kidney disease, stage 3 (moderate); E78.2 Mixed hyperlipidemia; E74.9 Disorder of carbohydrate metabolism, unspecified; M10.9 Gout, unspecified; Z79.899 Other long term (current) drug therapy
CPT/HCPCS: 84550

== ENCOUNTER → 2018-04-21 | Outpatient (REF) | payer MEDICARE, OTHER | LOC: M LAB REF 17:06 | DX: N39.0 Urinary tract infection, site not specified (principal) | CPT/HCPCS: 87086 ==

== ENCOUNTER → 2018-05-01 | Outpatient (CLI) | payer MEDICARE, BC, OTHER, MEDICAID | LOC: M RAD 13:14 | DX: I51.7 Cardiomegaly (principal); K44.9 Diaphragmatic hernia without obstruction or gangrene; M16.0 Bilateral primary osteoarthritis of hip; R07.9 Chest pain, unspecified; R05 Cough; Z96.653 Presence of artificial knee joint, bilateral | CPT/HCPCS: 71046 ==

== ENCOUNTER → 2018-05-07 | Outpatient (REF) | payer MEDICARE, OTHER, MEDICAID ==
[2018-05-07 20:17] LABS: URINE VOLUME 700 ML
[2018-05-07 20:29] LABS: TOTAL PROTEIN,RANDOM URINE 30.3 MG/DL (0.0-12.0); URINE TOTAL PROTEIN 30.3 MG/DL (0-12)
[2018-05-15 14:16] LABS: UPEP INTERPRETATION NO M-SPIKE NOTED
== END ==
LOC: M LAB REF 10:08
DX: D47.2 Monoclonal gammopathy (principal)
CPT/HCPCS: 84166

== ENCOUNTER → 2018-08-04 | Outpatient (REF) | payer MEDICARE, OTHER, MEDICAID ==
[~2018-08-04] MED LIST changes: +/ASCO250TA PO; +/BENA20TA PO; +/METO5TA PO; +ACET1TAB55 PO; +ACET650T3 PO; +ALDA25TA2 PO; +AMLO5TAB6 PO; +AMMO12CR4; +AMPI500C9 PO; +ASCO500T PO; +ASPI1TAB PO; +ASPI81TA60 PO; +ATEN100T PO; +ATEN25TA PO; +AUGM875T28 PO; +BACIDCA PO; +BECA1GEL TOP; +BENA20TA2 PO; +BISAC5TA PO; +BYST5TAB2 PO; +CALC1CAP31 PO; +CALC600T7 PO; +CALCTAB68 PO; +CARA1TAB2 PO; +CARD180C4 PO; +CARD60TA3 PO; +CEFD1CAP8 PO; +CLIN200T PO; +CO Q100C10 PO; +COLA100C5 PO; +COLCPOW6 PO; +COUM1TAB14 PO; +COUM1TAB17 PO; +COUM2.5T17 PO; +CYMB1CAP PO; +CYMB1CAP5 PO; +DILT240C47 PO; +DILT300C46 PO; -DOCUSATE SODIUM 100 MG CAP PO; +EUCECRE2 EX; +FEBU40TA PO; +FERR1TAB8 PO; +FISH1000 PO; +FISH100035 PO; +FOLI1TAB11 PO; +FOLI1TAB86 PO; +FURO20TA2 PO; +FURO40TA2 PO; +GABA300C2 PO; +GABA600T4 PO; +HEPA100I4 IV; +INDA2.5T PO; +ISOS1TAB12 PO; +K-TA10TA2 PO; +KLOR10TA76 PO; +LASI40TA9 PO; +LEVA250T13 PO; +LEVO250T12 PO; +LORA1TAB PO; +MAGN400T5 PO; +METH2.5T PO; +METH5TAB76 PO; +MILK10SU PO; +MULTTAB4 PO; +NEUR300C PO; +NORC1TAB4 PO; +OMEP40CA2 PO; +OSCA200T PO; +PRED10TA2 PO; +ROPI0.5T PO; +SALI0.9I2 IV; +SLF IV; +SPIR-10 PO; +SUCR1TAB56 PO; +SULF1TAB30 PO; +SULF500T2 PO; +SULI200T PO; +TOLT4CAP3 PO; +TOVI4TAB PO; +TOVI8TAB PO; +TYLE325T5 PO; +VENL150C43 PO; +VICO5TAB PO; +VICO7.5T PO; +VICO7.5T11 PO; +VITA200015 PO; +VITA20008 PO; +VITA50005 PO; +VITAD1000T PO; +VITMTA PO; +XARE15TA PO; +[UNRECOGNIZED DRUG - CODE] IV; +[UNRECOGNIZED DRUG - CODE] IV; +[UNRECOGNIZED DRUG - OTHER] PR
== END ==
LOC: M LAB REF 17:16
PROVIDERS: ATTEND Internal Medicine Nephrology
DX: N39.0 Urinary tract infection, site not specified (principal)

== ENCOUNTER → 2018-10-10 | Outpatient (REF) | payer MEDICARE, OTHER, MEDICAID ==
[~2018-10-10] MED LIST changes: -/BENA20TA PO; -/METO5TA PO; -AMMO12CR4; +AMMO12CR7; -ASPI1TAB PO; +ASPI81TA26 PO; +CIPR-249 PO; +DILT1CAP PO; -DILT300C46 PO; +LOTE1TAB PO; +METO1TAB88 PO; -NORC1TAB4 PO; +NORC1TAB7 PO; +PYRI1TAB5 PO; +[UNRECOGNIZED DRUG - CODE] IV; -[UNRECOGNIZED DRUG - CODE] IV
[2018-10-10 20:27] LABS: CHOLESTEROL RISK RATIO 3.596 (<5)
[2018-10-10 20:47] LABS: HEMOGLOBIN A1c 4.7 %
== END ==
LOC: M SFHCADAM 11:22
PROVIDERS: ATTEND Physician Assistant
DX: I63.40 Cerebral infarction due to embolism of unspecified cerebral artery (principal); I50.22 Chronic systolic (congestive) heart failure; R73.01 Impaired fasting glucose
CPT/HCPCS: 80061; 83036; G0463

== ENCOUNTER 2018-11-03 20:26 | Emergency (ER) | payer MEDICARE, BC, OTHER, MEDICAID ==
[~2018-11-03] VITALS: Ht 167.6 cm; Wt 104.5 kg
[~2018-11-03 20:26] MED LIST changes: -CIPR-249 PO; -PYRI1TAB5 PO
[2018-11-03 21:07] LABS: BASO % 0.4 % (0.0-1.0); EOS # 0.2 10^3/uL (0.0-0.50); EOS % 1.3 % (0.0-3.0); HEMATOCRIT 40.5 % (36.0-47.0); HEMOGLOBIN 12.9 g/dl (12.0-15.5); LYMPH % 26.2 % (24.0-44.0); MEAN CORPUSCULAR HEMOGLOBIN 31.7 pg (27.0-33.0); MEAN CORPUSCULAR HGB CONC 31.9 g/dl (32.0-36.5); MEAN CORPUSCULAR VOLUME 99.5 fl (80.0-96.0); MONO # 0.9 10^3/uL (0.0-0.8); MONO % 8.1 % (0.0-5.0); NEUTROPHILS # 7.2 10^3/uL (1.8-7.7); NEUTROPHILS % 63.6 % (36.0-66.0); PLATELET COUNT, AUTOMATED 119 10^3/uL (150-450); RED BLOOD COUNT 4.07 10^6/uL (4.00-5.40); WHITE BLOOD COUNT 11.3 10^3/uL (4.0-10.0)
[2018-11-03 21:29] LABS: CALCIUM LEVEL 8.4 MG/DL (8.8-10.2); CREATININE FOR GFR 1.83 MG/DL (0.55-1.30); GLOMERULAR FILTRATION RATE 28.3 (>32); POTASSIUM SERUM 4.4 MEQ/L (3.5-5.1)
[2018-11-04] MEDS ORDERED: LIDOCAINE 2% 5ML JELLY UROJET TOP ONE
--- NOTE | 2018-11-04 01:21 | REPVR ---
EXAM: CT Abdomen and Pelvis Without Contrast EXAM DATE/TIME: 11/03/2018 11:56 PM CLINICAL HISTORY: 78 years old, female; Abdominal pain; Localized; Lower; Additional info: High creat/luq pain/urethral hemorrhage TECHNIQUE: Imaging protocol: Axial computed tomography images of the abdomen and pelvis without contrast. Coronal and sagittal reformatted images were created and reviewed. Radiation optimization: All CT scans at this facility use at least one of these dose optimization techniques: automated exposure control; mA and/or kV adjustment per patient size (includes targeted exams where dose is matched to clinical indication); or iterative reconstruction. COMPARISON: CT ABD PELVIS W/O CONTRAST 07/21/2013 1:16 AM FINDINGS: Lungs: Slight bibasilar interstitial coarsening with minimal fibro-atelectatic change. Heart: Mitral valve replacement. ABDOMEN: Liver: Normal. No mass. Gallbladder and bile ducts: Normal. No calcified stones. No ductal dilation. Pancreas: Normal. No ductal dilation. Spleen: Normal. No splenomegaly. Adrenals: Normal. No mass. Kidneys and ureters: Normal. No hydronephrosis. Stomach and bowel: There is colonic diverticulosis without evidence of diverticulitis. Large hiatal hernia containing most of the stomach and the splenic flexure of the colon. Slight wall thickening of the left colon from the mid descending colon to the rectum. Appendix: A normal appendix is seen. PELVIS: Bladder: Unremarkable as visualized. Reproductive: Status post hysterectomy. ABDOMEN and PELVIS: Intraperitoneal space: Normal. No free air. No significant fluid collection. Bones/joints: Fusion from T12-S1 with pedicular screws from L2-S1. Soft tissues: Minimal fat filled umbilical hernia. Vasculature: There is mild calcification of the abdominal aorta with extension into the iliac arteries. Lymph nodes: Normal. No enlarged lymph nodes. IMPRESSION: 1. There has been little change 07/21/2013. No acute interval process is identified. 2. Lumbar fusion from T12-S1. 3. Colonic diverticulosis without diverticulitis. 4. Large hiatal hernia containing most of the stomach and the splenic flexure of the colon. 5. Question minimal nonspecific distal colitis from the mid descending colon to the rectum which may be new. 6. Status post hysterectomy. Electronically signed by: Harsh Meyer On 11/04/2018 01:21:34 AM
[2018-11-04] MEDS ORDERED: CIPR-249 PO (01:52)
[2018-11-04] MEDS ORDERED: PYRI1TAB5 PO (01:52)
[2018-11-04 02:30] VITALS: BP 145/79
== END 2018-11-04 02:32 | disposition home or self-care (01) ==
LOC: M ED 20:26
DX: N30.91 Cystitis, unspecified with hematuria (principal); Z79.01 Long term (current) use of anticoagulants; I10 Essential (primary) hypertension; J44.9 Chronic obstructive pulmonary disease, unspecified; I48.91 Unspecified atrial fibrillation; M10.9 Gout, unspecified; M06.9 Rheumatoid arthritis, unspecified; K21.9 Gastro-esophageal reflux disease without esophagitis; N28.9 Disorder of kidney and ureter, unspecified; Z79.899 Other long term (current) drug therapy; Z88.8 Allergy status to other drugs, medicaments and biological substances

== ENCOUNTER → 2018-11-18 | Outpatient (REF) | payer MEDICARE, OTHER, MEDICAID ==
[~2018-11-18] MED LIST changes: +CIPR-249 PO; +PYRI1TAB5 PO
== END ==
LOC: M LAB REF 16:50
PROVIDERS: ATTEND Internal Medicine Nephrology
DX: Z87.440 Personal history of urinary (tract) infections (principal); Z79.899 Other long term (current) drug therapy

== ENCOUNTER → 2018-11-19 | Outpatient (CLI) | payer MEDICARE, BC, OTHER, MEDICAID ==
--- NOTE | 2018-11-19 14:06 | REP ---
Skeletal survey: Comparison is 04/30/2018. AP and lateral views: There are no punched out lytic lesions. Hyperostosis frontalis internus is again identified, not unusual. Cervical spine AP and lateral views: There is demineralization. There are no punched out lytic lesions. There is advanced degenerative disc disease and facet osteoarthritis. This is unchanged. Thoracic spine AP and lateral views: There are no punched out lytic lesions. There are no compression deformities. There is degenerative disc disease throughout the thoracic spine, unchanged. Lumbar spine AP and lateral views: There are no punched out lytic lesions. There is surgical fusion with pedicle screws and stabilization rods from L2-S1 as previously. T12 and L1 may be fused, as previously. Pelvis, AP view: There are no punched out lytic lesions. Mineralization is normal. Bilateral humeri: There is advanced deforming arthropathy of the shoulders bilaterally with cephalic migration of the humeral heads and chronic bilateral impingement. This is unchanged. There are no punched out lytic lesions. Bilateral femurs: There are no punched out lytic lesions. There are bilateral knee arthroplasties. There is bilateral hip osteoarthritis. Possible myositis ossificans at the left lesser trochanter, unchanged. Electronically Signed by Bharath Davalos MD 11/19/2018 01:57 P
== END ==
LOC: M RAD 12:10
PROVIDERS: ATTEND Internal Medicine
DX: D47.2 Monoclonal gammopathy (principal)

== ENCOUNTER 2018-12-11 08:39 | Inpatient (IN) | payer MEDICARE, BC, OTHER, MEDICAID ==
[~2018-12-11] VITALS: Ht 170.2 cm; Wt 105.5 kg
[2018-12-11] MEDS ORDERED: MULTIVITAMINS/MINERALS THERAP 1 TAB PO SCH (09:00)
[2018-12-11] MEDS ORDERED: TOLTERODINE TARTRATE 2 MG LA CAP (DETROL LA) PO SCH (09:00)
[2018-12-11] MEDS ORDERED: FOLIC ACID 1 MG TAB PO SCH (09:00)
[2018-12-11] MEDS ORDERED: NEBIVOLOL 5 MG TAB (BYSTOLIC) PO SCH (09:00)
[2018-12-11] MEDS ORDERED: FEBUXOSTAT 40 MG TABLET (ULORIC) PO SCH (09:00)
[2018-12-11 09:35] LABS: HEMOGLOBIN 14.3 g/dl (12.0-15.5); MEAN CORPUSCULAR HEMOGLOBIN 32.6 pg (27.0-33.0); MEAN CORPUSCULAR HGB CONC 32.5 g/dl (32.0-36.5); MEAN CORPUSCULAR VOLUME 100.2 fl (80.0-96.0); PLATELET COUNT, AUTOMATED 129 10^3/uL (150-450); RED BLOOD COUNT 4.39 10^6/uL (4.00-5.40); WHITE BLOOD COUNT 14.1 10^3/uL (4.0-10.0)
[2018-12-11 10:14] LABS: BLOOD UREA NITROGEN 59 MG/DL (7-18); CALCIUM LEVEL 9.3 MG/DL (8.8-10.2); CARBON DIOXIDE LEVEL 28 MEQ/L (21-32); CHLORIDE LEVEL 100 MEQ/L (98-107); CK-MB VALUE MASS 3.1 NG/ML (<3.6); CPK CREATINE PHOSPHOKINASE 94 U/L (26-192); CREATININE FOR GFR 1.87 MG/DL (0.55-1.30); GLOMERULAR FILTRATION RATE 27.6 (>32); GLUCOSE, FASTING 126 MG/DL (70-100); POTASSIUM SERUM 4.2 MEQ/L (3.5-5.1); SODIUM LEVEL 136 MEQ/L (136-145); TROPONIN I < 0.02 NG/ML (< 0.10)
--- NOTE | 2018-12-11 10:15 | REP ---
CT brain without contrast: History: Head injury. Patient on Xarelto. Comparison head CT study November 06, 2017. Findings: Preliminary digital hockey scout radiographs are unremarkable. Bone window settings show no evidence of skull fracture or bony destructive lesion. The visualized paranasal sinuses are clear. No intraorbital abnormality is seen. There is no evidence of intracranial hemorrhage. There is moderate diffuse cerebral atrophy. Vascular calcification is noted. There are extensive periventricular white matter changes consistent with small vessel atherosclerotic disease. No acute infarction is seen. No mass or extra-axial fluid collection. Impression: Advanced atrophy and small vessel changes. No acute hemorrhage, infarct or mass. Vascular calcification. Electronically Signed by Lei Ortiz MD 12/11/2018 07:19 P
[2018-12-11] MEDS ORDERED: NS 500 ML IV ONE (10:30)
--- NOTE | 2018-12-11 10:31 | REP ---
CT study of the cervical spine without contrast: History: Trauma. Technique: Helical scanning is acquired and overlapping 2 mm high resolution axial images were generated and reviewed at bone and soft tissue window settings. Coronal and sagittal multiplanar re-formations images are generated. CT findings: There is no evidence of cervical spine element fracture. No skull base fracture is seen. Cervical vertebral body heights are preserved. Alignment is normal. Facet joints are normally aligned bilaterally at each cervical level on multiplanar re-formations images. There is no evidence of intraspinal or paraspinal hematoma. No extra vertebral abnormality is seen. There is advanced degenerative spondylosis change. Hypertrophic spurring osteoarthritic changes are seen at the articulation between the dens and the anterior arch of C1. Osteoarthritis is seen diffusely in the facet joints bilaterally. The left facet joint at C5-6 and the right facet joint at C6-7 appear to be fused. There is a right-sided cervical rib at C7. Diffuse degenerative disc disease is present with posterior osteophytic ridging at each level from C3-4 through C6-7. There is multilevel uncovertebral spurring. There is a left posterior discogenic spur at the C5-6. Impression: Advanced degenerative spondylosis changes, otherwise negative CT study of the cervical spine without contrast. No fracture seen. Electronically Signed by Lei Ortiz MD 12/11/2018 07:19 P
[2018-12-11] MEDS ORDERED: ISOSORBIDE MON. (IMDUR) 30 MG XR TAB PO ONE (12:30)
[2018-12-11] MEDS ORDERED: SUCRALFATE 1 GM TAB PO ONE (12:30)
[2018-12-11] MEDS ORDERED: MULTIVITAMINS/MINERALS THERAP 1 TAB PO ONE (12:30)
[2018-12-11] MEDS ORDERED: FOLIC ACID 1 MG TAB PO ONE (12:30)
[2018-12-11] MEDS ORDERED: OMEPRAZOLE 20 MG CAP PO ONE (12:30)
[2018-12-11] MEDS ORDERED: GABAPENTIN 300 MG CAP PO ONE (12:30)
[2018-12-11] MEDS ORDERED: FUROSEMIDE 40 MG TAB PO ONE (12:30)
[2018-12-11] MEDS ORDERED: VENLAFAXINE 37.5 MG TAB PO ONE (12:30)
[2018-12-11] MEDS ORDERED: VENLAFAXINE **XR** 75MG CAPSULE PO ONE (13:30)
[2018-12-11] MEDS ORDERED: RIVAROXABAN 15 MG TAB (XARELTO) PO ONE (13:30)
[2018-12-11] MEDS ORDERED: FEBUXOSTAT 40 MG TABLET (ULORIC) PO ONE (13:30)
[2018-12-11] MEDS ORDERED: rOPINIRole 1MG TAB PO ONE (14:00)
[2018-12-11] MEDS ORDERED: ISOSORBIDE MONONITRATE 10MG TABLET PO ONE (14:00)
[2018-12-11] MEDS ORDERED: NEBIVOLOL 5 MG TAB (BYSTOLIC) PO ONE (14:00)
[2018-12-11] MEDS ORDERED: TOLTERODINE TARTRATE 2 MG LA CAP (DETROL LA) PO ONE (14:00)
[2018-12-11] MEDS ORDERED: PILL CUTTER 1 EACH XX ONE (14:01)
[2018-12-11] MEDS ORDERED: DILT1CAP PO (14:36)
[2018-12-11] MEDS ORDERED: ROPI1TAB PO (14:38)
[2018-12-11] MEDS ORDERED: SPIR-10 PO (14:38)
--- NOTE | 2018-12-11 17:02 | HPE ---
DATE OF ADMISSION: This is an 78-year-old who has been getting progressively weak over the last several years. Has a fairly long inpatient rehabilitation stay. Spending four months in rehabilitation at [facility]. She is admitted after being found unresponsive underneath her shoulder bench. She says that she remembers getting in the shower. She had not brought a towel with her. She called out for her Teofilo to bring her a towel but he was on the other side of house. She sat down on the shower bench to wait for him and she either fell asleep or passed out. Her found her unresponsive prone on the shower floor underneath the bench. She has no memory of this. 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 She underwent progressive deterioration valve function and developed severe mitral regurgitation and underwent mitral valve replacement #33 mosaic mitral valve on 08/09 treated atrial fibrillation postop mitral valve replacement on 08/09. She has arthritis. She is now followed by Dr. Park locally. She has hypertensive heart disease. She has disc disease of the cervical and lumbosacral spine with lumbar spinal stenosis in the MRI scan done in [place]. She has hyperlipidemia. GERD, prediabetes and metabolic syndrome. She had gastritis in 2000. Colon polyp removed 08/07. Chronic lower extremity edema due to venous insufficiency. Vitamin D deficiency. She had a nerve conduction done that showed L5-S1 radiculopathy neuropathy. She had MRSA infections in the past. A left lung nodule stable on CT scan 06/15/09-2011. She has a history of gout and stroke. She had multiple strokes which suggested probably septic emboli. She had an MRI of the brain 08/07. She has a large hiatal hernia. Nearly her entire stomach if herniated. 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 Sucralfate treatment for this. She has chronic urinary incontinence, systolic congestive heart failure and echocardiogram showing 30% ejection fraction confirmed on cardiac cath 08/09. This was done before her mitral valve replacement. She has monoclonal gammopathy with an M-spike of only 0.08 grams and is followed by the architectural manager. She has chronic kidney disease stage 3-4. GFR however is around 30. She has secondary hyperparathyroidism for this, restless leg syndrome and has chronic hypoxemia for which she wears oxygen 2 liters at bedtime. She had a repeat echocardiogram 11/11 and the ejection fraction recovered is 60% after her mitral valve replacement. Left atrium was 43 mm. Atrial fibrillation was present. Normal left ventricular systolic function. At least mild pulmonary hypertension noted. SURGICAL HISTORY: Spinal fusion 1994, venous stripping, TAHBSO for endometrial adenocarcinoma, bilateral total knee replacement, bunionectomy and hammer toes repaired, colonoscopy, mitral valve replacement with a #33 mosaic mitral valve at [facility], cataracts removed. FAMILY HISTORY: Father at 96 he had hyperlipidemia, skin cancers and leukemia. Mother at 93. She had chronic kidney disease, hypertension and arthritis. SOCIAL HISTORY: She is and has never smoked. She does not drink any alcohol. ALLERGIES: Allopurinol causes a rash. REVIEW OF SYSTEMS: No headaches, palpitations head injury, increased in her chronic neck pain. PHYSICAL EXAMINATION: VITAL SIGNS: Per flow sheet. GENERAL APPEARANCE: She is alert, conversant in no distress. Blood pressure 150/63, elderly, resting comfortably in bed. Pupils equal round and reactive to light. LUNGS: Clear. HEART: Murmur at the apex. ABDOMEN: Soft and nontender. No masses. EXTREMITIES: No clubbing, cyanosis, chronic venous stasis, dermatitis, trace 1+ peripheral edema. LABS: White count 14, hemoglobin 14, platelets 129, sodium 136, potassium 4.2, BUN 59, creatinine 1.8, GFR 27 which is her baseline. Cervical spine films shows advanced arthritis and no fracture. Head CT showed atrophy. No active disease. IMPRESSION: 1. Syncopal episode admitted to telemetry bed monitor for 24-48 hours. Cardiac enzymes have been ordered. An echocardiogram was done so we are not repeating that. 2. Status post mitral valve replacement in a patient with past history of endocarditis repeat blood culture was ordered. 3. Hypertensive heart disease on Bystolic and diltiazem. 4. Atrial fibrillation. She is on Xarelto for her thromboembolic prophylaxis. 5. Nocturnal hypoxemia. She is on Oxygen 2 liters nasal cannula and Lasix 40 mg twice a day.
[2018-12-11 17:15] VITALS: BP 120/78
[2018-12-11] MEDS ORDERED: KCL 20MEQ IN 0.45NS 1000ML 1,000 ML IV SCH (18:00)
[2018-12-11 20:00] VITALS: BP 158/66
[2018-12-11] MEDS: DOCUSATE SODIUM 100 MG CAP PO SCH (21:00)
[2018-12-11] MEDS: GABAPENTIN 300 MG CAP PO SCH (21:08)
[2018-12-11] MEDS: RIVAROXABAN 15 MG TAB (XARELTO) PO SCH (21:08)
[2018-12-11] MEDS: rOPINIRole 1MG TAB PO SCH (21:08)
[2018-12-11] MEDS: OMEPRAZOLE 20 MG CAP PO SCH (21:08)
[2018-12-11 22:15] LABS: CK-MB VALUE MASS 3.4 NG/ML (<3.6); MB/CK RELATIVE INDEX 2.56 (< OR =4); TROPONIN I 0.02 NG/ML (< 0.10)
[2018-12-12] VITALS (7 sets, daily range): BP systolic 118–136; BP diastolic 5–90
[2018-12-12 04:52] LABS: HEMATOCRIT 38.3 % (36.0-47.0); HEMOGLOBIN 12.6 g/dl (12.0-15.5); MEAN CORPUSCULAR HEMOGLOBIN 31.7 pg (27.0-33.0); MEAN CORPUSCULAR HGB CONC 32.9 g/dl (32.0-36.5); MEAN CORPUSCULAR VOLUME 96.5 fl (80.0-96.0); PLATELET COUNT, AUTOMATED 141 10^3/uL (150-450); RED BLOOD COUNT 3.97 10^6/uL (4.00-5.40); WHITE BLOOD COUNT 12.8 10^3/uL (4.0-10.0)
[2018-12-12 05:22] LABS: CALCIUM LEVEL 8.8 MG/DL (8.8-10.2); CK-MB VALUE MASS 2.2 NG/ML (<3.6); CREATININE FOR GFR 1.59 MG/DL (0.55-1.30); GLOMERULAR FILTRATION RATE 33.3 (>32); MB/CK RELATIVE INDEX 2.97 (< OR =4); POTASSIUM SERUM 3.3 MEQ/L (3.5-5.1); TROPONIN I 0.02 NG/ML (< 0.10)
--- NOTE | 2018-12-12 05:31 | ECGEPIP ---
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
[2018-12-12] MEDS ORDERED: POTASSIUM CHLORIDE 10 MEQ SR TABLET PO ONE (06:00)
--- NOTE | 2018-12-12 08:44 | IPNPDOC ---
Subjective Date Seen The patient was seen on 12/12/18. Subjective Chief Complaint/HPI No diarrhea since yesterday. No n/v or abd pain. Denies lightheadedness this am but has not been OOB yet Constitutional: Denies: Chills, Fever Pulmonary: Denies: Dyspnea, Cough Cardiovascular: Denies: Chest Pain, Palpitations Gastrointestinal: Denies: Nausea, Vomiting, Abdominal Pain, Diarrhea, Constipation Objective Physical Examination General Exam: Positive: Alert, No Acute Distress Chest Exam: Positive: Clear to auscultation; Negative: Rales, Rhonchi, Wheezing Heart Exam: Positive: Rate Normal, Irregular Rhythm Extremity Exam: Negative: Edema Assessment /Plan Problems (1) Vasovagal syncope Status: Acute Response to Treatment: Improving Problem Text: Likely related to dehydration from diarrhea in combination with v asodilation from hot shower Tele not ordered on admission, but verbal order given to place on tele, however not done - will order tele now to monitor for arrhythmia Lasix, Spironolactone and Isosorbide on hold for now. BP stable and renal function back to baseline. K+ low today - Restart Spironolactone. Give potassium and check mag level. Get PT (2) Enteropathogenic Escherichia coli infection Status: Acute Problem Text: Seems to be resolving - no diarrhea since yesterday (3) A-fib Status: Chronic Response to Treatment: Stable Problem Text: Rate controlled Cont Xarelto (4) CKD (chronic kidney disease) stage 3, GFR 30-59 ml/min Status: Chronic Response to Treatment: Improving Problem Text: Back to baseline with diuretics on hold (5) S/P mitral valve replacement Status: Chronic Response to Treatment: Stable Problem Specific Plan: Consult Specialist Problem Text: B/C pending Plan/VTE VTE Prophylaxis Ordered?: Yes Plan Therapy: PT, OT VS, I&O, 24H, Fishbone Vital Signs/I&O Vital Signs Date Time Temp Pulse Resp B/P (MAP) Pulse Ox O2 Delivery O2 Flow Rate FiO2 12/12/18 04:45 98.3 92 18 134/90 (105) 95 12/11/18 16:23 Room Air I&O- Last 24 Hours up to 6 AM 12/12/18 06:00 Intake Total 750 ml Output Total 0 ml Balance 750 ml Laboratory Data 24H LABS Laboratory Tests 2 12/11/18 09:21: Nucleated Red Blood Cells % (auto) 0.0, Anion Gap 8, Glomerular Filtration Rate 27.6L, Blood Urea Nitrogen 59H, Creatinine 1.87H, Sodium Level 136, Potassium Level 4.2, Chloride Level 100, Carbon Dioxide Level 28, Calcium Level 9.3, Total Creatine Kinase 94, Creatine Kinase MB 3.1, Creatine Kinase MB Relative Index 3.30, Troponin I < 0.02 12/11/18 21:05: Total Creatine Kinase 133, Creatine Kinase MB 3.4, Creatine Kinase MB Relative Index 2.56, Troponin I 0.02 12/12/18 04:27: Nucleated Red Blood Cells % (auto) 0.0, Anion Gap 7L, Glomerular Filtration Rate 33.3, Blood Urea Nitrogen 53H, Creatinine 1.59H, Sodium Level 137, Potassium Level 3.3#L, Chloride Level 103, Carbon Dioxide Level 27, Calcium Level 8.8, Total Creatine Kinase 74, Creatine Kinase MB 2.2, Creatine Kinase MB Relative Index 2.97, Troponin I 0.02 CBC/BMP Laboratory Tests 12/11/18 09:21 Red Blood Count 4.39, Mean Corpuscular Volume 100.2 H, Mean Corpuscular Hemoglobin 32.6, Mean Corpuscular Hemoglobin Concent 32.5, Red Cell Distribution Width 13.2, Calcium Level 9.3, Total Creatine Kinase 94 12/12/18 04:27 Red Blood Count 3.97 L, Mean Corpuscular Volume 96.5 H, Mean Corpuscular Hemoglobin 31.7, Mean Corpuscular Hemoglobin Concent 32.9, Red Cell Distribution Width 13.2, Calcium Level 8.8, Total Creatine Kinase 74 Microbiology Microbiology 12/11/18 Gastrointestinal Tract Panel (PCR) - Final, Complete Enteropathogenic E.coli BARRY BUTLER PA-C Dec 12, 2018 08:44
[2018-12-12] MEDS ORDERED: SLF 3 ML SYR IV PRN (09:00)
[2018-12-12] MEDS ORDERED: VENLAFAXINE **XR** 75MG CAPSULE PO SCH (09:00)
[2018-12-12] MEDS: DOCUSATE SODIUM 100 MG CAP PO SCH ×3 (09:00→21:00)
[2018-12-12] MEDS: VENLAFAXINE **XR** 75MG CAPSULE PO SCH (09:28)
[2018-12-12] MEDS: FEBUXOSTAT 40 MG TABLET (ULORIC) PO SCH (09:29)
[2018-12-12] MEDS: TOLTERODINE TARTRATE 2 MG LA CAP (DETROL LA) PO SCH (09:29)
[2018-12-12] MEDS: OMEPRAZOLE 20 MG CAP PO SCH ×2 (09:29→21:39)
[2018-12-12] MEDS: GABAPENTIN 300 MG CAP PO SCH ×2 (09:29→21:38)
[2018-12-12] MEDS: MULTIVITAMINS/MINERALS THERAP 1 TAB PO SCH (09:29)
[2018-12-12] MEDS: FOLIC ACID 1 MG TAB PO SCH (09:29)
[2018-12-12 09:30] LABS: MAGNESIUM LEVEL 2.6 MG/DL (1.8-2.4)
[2018-12-12] MEDS: rOPINIRole 1MG TAB PO SCH ×2 (09:30→21:43)
[2018-12-12] MEDS: SPIRONOLACTONE 25 MG TAB PO SCH ×2 (09:30→17:33)
[2018-12-12] MEDS: NEBIVOLOL 5 MG TAB (BYSTOLIC) PO SCH (09:31)
[2018-12-12] MEDS: ACETAMINOPHEN 650MG ER TAB (TYLENOL ARTHRITIS) PO PRN ×2 (11:06→21:37)
[2018-12-12] MEDS: SLF 3 ML SYR IV SCH ×2 (14:00→21:51)
[2018-12-12 14:09] LABS: MB/CK RELATIVE INDEX 2.38 (< OR =4); TROPONIN I 0.02 NG/ML (< 0.10)
[2018-12-12] MEDS: RIVAROXABAN 15 MG TAB (XARELTO) PO SCH (21:39)
[2018-12-13 04:00] VITALS: BP 143/79
[2018-12-13 05:56] LABS: HEMATOCRIT 43.5 % (36.0-47.0); HEMOGLOBIN 13.9 g/dl (12.0-15.5); MEAN CORPUSCULAR VOLUME 100.2 fl (80.0-96.0); PLATELET COUNT, AUTOMATED 156 10^3/uL (150-450); RED BLOOD COUNT 4.34 10^6/uL (4.00-5.40); WHITE BLOOD COUNT 16.2 10^3/uL (4.0-10.0)
[2018-12-13 06:26] LABS: CALCIUM LEVEL 9.6 MG/DL (8.8-10.2); CREATININE FOR GFR 2.07 MG/DL (0.55-1.30); GLOMERULAR FILTRATION RATE 24.5 (>32); POTASSIUM SERUM 3.8 MEQ/L (3.5-5.1)
[2018-12-13] MEDS: SLF 3 ML SYR IV SCH ×3 (06:42→21:54)
[2018-12-13 08:00] VITALS: BP 144/92
[2018-12-13] MEDS: DOCUSATE SODIUM 100 MG CAP PO SCH ×2 (09:00→21:00)
[2018-12-13] MEDS: rOPINIRole 1MG TAB PO SCH ×2 (09:09→21:50)
[2018-12-13] MEDS: VENLAFAXINE **XR** 75MG CAPSULE PO SCH (09:09)
[2018-12-13] MEDS: FEBUXOSTAT 40 MG TABLET (ULORIC) PO SCH (09:09)
[2018-12-13] MEDS: GABAPENTIN 300 MG CAP PO SCH ×2 (09:10→21:50)
[2018-12-13] MEDS: FOLIC ACID 1 MG TAB PO SCH (09:10)
[2018-12-13] MEDS: NEBIVOLOL 5 MG TAB (BYSTOLIC) PO SCH (09:10)
[2018-12-13] MEDS: OMEPRAZOLE 20 MG CAP PO SCH ×2 (09:10→21:50)
[2018-12-13] MEDS: ACETAMINOPHEN 650MG ER TAB (TYLENOL ARTHRITIS) PO PRN ×2 (09:11→21:49)
[2018-12-13] MEDS: SPIRONOLACTONE 25 MG TAB PO SCH ×2 (09:11→16:41)
[2018-12-13] MEDS: MULTIVITAMINS/MINERALS THERAP 1 TAB PO SCH (09:11)
[2018-12-13] MEDS: TOLTERODINE TARTRATE 2 MG LA CAP (DETROL LA) PO SCH (09:11)
--- NOTE | 2018-12-13 11:57 | IPN ---
DATE OF SERVICE: 12/13/2018 Madison has had profuse diarrhea this morning. She had an enteropathogenic Escherichia (E.) coli, and we were trying not to treat that, but now she has picked up more diarrhea. So, we will be starting antimicrobial treatment. She has had no significant findings on telemetry to account for vasovagal syncope. (I suspect she was overcome by heat sitting in a hot shower, vasodilated, and passed out.) Her blood pressure is back up, and I have reinstituted some of the outpatient diuretics and nitrites. No chest pain. No shortness of breath. No rectal bleeding. PHYSICAL EXAMINATION: 144/92, pulse of 107, afebrile. General appearance: Resting in a chair. Looks comfortable. HEENT: Unremarkable. Heart: Irregular rate and rhythm. Rate is up to around 100. Abdomen: Soft, nontender, no masses. Trace peripheral edema. LABORATORIES: White count 16.2, it is rising, hemoglobin 13.9, platelets 156. Sodium 136, potassium 3.8, BUN 56, creatinine 2.0. IMPRESSION: 1. Vasovagal syncope. Continue telemetry. I am restarting furosemide, spironolactone, isosorbide, and a lower dose of diltiazem. Monitor on telemetry on this. 2. Enteropathogenic Escherichia (E.) coli. I am starting some Cipro for this, as the diarrhea is persisting. 3. Chronic kidney disease with on chronic kidney failure. Creatinine is rising. I am restarting her diuretics. Does not look volume overloaded right now. Repeat laboratories ordered for the morning. 4. Status post mitral valve replacement. She is stable with this. 5. Leukocytosis, presumptively from the enteropathogenic E. coli. Will watch this closely, as well. 6. Hypertensive heart disease. She is on Bystolic. I am restarting her diltiazem at a reduced dose. I expect she will be here through the weekend into early next week. She previously required subcutaneous rehabilitation after her hospitalization.
[2018-12-13 12:00] VITALS: BP 138/88
[2018-12-13] MEDS: diltiaZEM **CD** 180 MG CAP PO SCH (12:15)
[2018-12-13] MEDS: FUROSEMIDE 40 MG TAB PO SCH ×2 (12:16→16:41)
[2018-12-13 16:00] VITALS: BP 157/85
[2018-12-13] MEDS: ISOSORBIDE MONONITRATE 10MG TABLET PO SCH (16:40)
[2018-12-13 20:00] VITALS: BP 113/74
[2018-12-13] MEDS ORDERED: SPIRONOLACTONE 25 MG TAB PO SCH (21:00)
[2018-12-13] MEDS: RIVAROXABAN 15 MG TAB (XARELTO) PO SCH (21:50)
[2018-12-13 23:59] VITALS: BP 110/62
[2018-12-14 04:00] VITALS: BP 129/74
[2018-12-14 05:04] LABS: HEMATOCRIT 35.3 % (36.0-47.0); MEAN CORPUSCULAR HEMOGLOBIN 31.3 pg (27.0-33.0); MEAN CORPUSCULAR HGB CONC 32.3 g/dl (32.0-36.5); PLATELET COUNT, AUTOMATED 124 10^3/uL (150-450); RED BLOOD COUNT 3.64 10^6/uL (4.00-5.40); WHITE BLOOD COUNT 11.8 10^3/uL (4.0-10.0)
[2018-12-14 05:21] LABS: CALCIUM LEVEL 8.4 MG/DL (8.8-10.2); CREATININE FOR GFR 1.89 MG/DL (0.55-1.30); GLOMERULAR FILTRATION RATE 27.2 (>32); POTASSIUM SERUM 3.4 MEQ/L (3.5-5.1)
[2018-12-14 05:22] LABS: HEMOGLOBIN 11.4 g/dl (12.0-15.5)
[2018-12-14] MEDS: SLF 3 ML SYR IV SCH ×3 (05:48→22:00)
[2018-12-14] MEDS: ACETAMINOPHEN 650MG ER TAB (TYLENOL ARTHRITIS) PO PRN ×2 (05:50→20:53)
[2018-12-14 08:00] VITALS: BP 118/72
[2018-12-14] MEDS: TOLTERODINE TARTRATE 2 MG LA CAP (DETROL LA) PO SCH (08:12)
[2018-12-14] MEDS: FEBUXOSTAT 40 MG TABLET (ULORIC) PO SCH (08:12)
[2018-12-14] MEDS: GABAPENTIN 300 MG CAP PO SCH ×2 (08:12→20:53)
[2018-12-14] MEDS: FUROSEMIDE 40 MG TAB PO SCH ×2 (08:12→17:02)
[2018-12-14] MEDS: SPIRONOLACTONE 25 MG TAB PO SCH ×2 (08:12→17:02)
[2018-12-14] MEDS: VENLAFAXINE **XR** 75MG CAPSULE PO SCH (08:12)
[2018-12-14] MEDS: MULTIVITAMINS/MINERALS THERAP 1 TAB PO SCH (08:12)
[2018-12-14] MEDS: OMEPRAZOLE 20 MG CAP PO SCH ×2 (08:13→20:52)
[2018-12-14] MEDS: FOLIC ACID 1 MG TAB PO SCH (08:13)
[2018-12-14] MEDS: ISOSORBIDE MONONITRATE 10MG TABLET PO SCH ×2 (08:13→17:02)
[2018-12-14] MEDS: rOPINIRole 1MG TAB PO SCH ×2 (08:13→20:53)
[2018-12-14] MEDS: diltiaZEM **CD** 180 MG CAP PO SCH (08:14)
[2018-12-14] MEDS: NEBIVOLOL 5 MG TAB (BYSTOLIC) PO SCH (08:14)
[2018-12-14] MEDS: DOCUSATE SODIUM 100 MG CAP PO SCH ×2 (08:14→20:55)
[2018-12-14 12:00] VITALS: BP 110/64
[2018-12-14 16:00] VITALS: BP 124/77
[2018-12-14] MEDS: CIPROFLOXACIN 500 MG TAB PO SCH (17:02)
[2018-12-14 20:00] VITALS: BP 130/80
[2018-12-14] MEDS: RIVAROXABAN 15 MG TAB (XARELTO) PO SCH (20:53)
--- NOTE | 2018-12-14 21:41 | IPN ---
DATE: 12/14/2018 Madison is seen in the progressive care unit (PCU). Her white count is down. She feels better. I was going to start her Cipro yesterday for her diarrhea and then she thought that maybe it was better and now she tells me she does have more diarrhea, so we are actually starting the Cipro today. She has had no arrhythmias. No syncope. She denies chest pain. No shortness of breath. Blood pressure was restored. PHYSICAL EXAMINATION: VITAL SIGNS: Stable. Blood pressure 138/88. Elderly, frail, resting comfortably. LUNGS: Clear. HEART: Regular rate and rhythm. ABDOMEN: Soft, nontender. No peripheral edema. LABORATORY DATA: Creatinine is 1.9, potassium is 3.4. IMPRESSION: 1. Enteropathogenic Escherichia (E) coli. Start Cipro 500 mg every 18 hours for three days. 2. Vasovagal syncope. No recurrence. 3. Chronic kidney disease. Renal function is stable, is improved. Restarting her diuretics. These need to be watched closely. Volume status is often a problem for her. 4. Mitral valve replacement. Stable. Negative blood cultures. 5. Hypertension. Blood pressure is improved. Restarting diltiazem in addition to her bisoprolol. 6. Leukocytosis. This is slowly resolving. I think it is reactive or perhaps related to the E. coli.
[2018-12-14 23:59] VITALS: BP 130/76
[2018-12-15 04:00] VITALS: BP 111/68
[2018-12-15 06:11] LABS: HEMATOCRIT 37.6 % (36.0-47.0); HEMOGLOBIN 12.1 g/dl (12.0-15.5); MEAN CORPUSCULAR HEMOGLOBIN 32.4 pg (27.0-33.0); MEAN CORPUSCULAR HGB CONC 32.2 g/dl (32.0-36.5); MEAN CORPUSCULAR VOLUME 100.5 fl (80.0-96.0); PLATELET COUNT, AUTOMATED 123 10^3/uL (150-450); RED BLOOD COUNT 3.74 10^6/uL (4.00-5.40)
[2018-12-15] MEDS: SLF 3 ML SYR IV SCH ×3 (06:34→21:21)
[2018-12-15 06:39] LABS: CALCIUM LEVEL 8.8 MG/DL (8.8-10.2); CREATININE FOR GFR 1.75 MG/DL (0.55-1.30); GLOMERULAR FILTRATION RATE 29.8 (>32); POTASSIUM SERUM 3.7 MEQ/L (3.5-5.1)
[2018-12-15 08:38] VITALS: BP 140/92
[2018-12-15] MEDS: DOCUSATE SODIUM 100 MG CAP PO SCH ×3 (09:00→21:21)
[2018-12-15] MEDS: diltiaZEM **CD** 180 MG CAP PO SCH (09:36)
[2018-12-15] MEDS: FUROSEMIDE 40 MG TAB PO SCH ×2 (09:37→17:29)
[2018-12-15] MEDS: GABAPENTIN 300 MG CAP PO SCH ×2 (09:37→21:21)
[2018-12-15] MEDS: OMEPRAZOLE 20 MG CAP PO SCH ×2 (09:37→21:21)
[2018-12-15] MEDS: SPIRONOLACTONE 25 MG TAB PO SCH ×2 (09:37→17:29)
[2018-12-15] MEDS: VENLAFAXINE **XR** 75MG CAPSULE PO SCH (09:37)
[2018-12-15] MEDS: FEBUXOSTAT 40 MG TABLET (ULORIC) PO SCH (09:37)
[2018-12-15] MEDS: MULTIVITAMINS/MINERALS THERAP 1 TAB PO SCH (09:38)
[2018-12-15] MEDS: NEBIVOLOL 5 MG TAB (BYSTOLIC) PO SCH (09:38)
[2018-12-15] MEDS: ISOSORBIDE MONONITRATE 10MG TABLET PO SCH ×2 (09:38→17:29)
[2018-12-15] MEDS: FOLIC ACID 1 MG TAB PO SCH (09:38)
[2018-12-15] MEDS: rOPINIRole 1MG TAB PO SCH ×2 (09:38→21:21)
[2018-12-15] MEDS: TOLTERODINE TARTRATE 2 MG LA CAP (DETROL LA) PO SCH (09:38)
--- NOTE | 2018-12-15 10:19 | IPNPDOC ---
Subjective Date Seen The patient was seen on 12/15/18. Subjective Chief Complaint/HPI syncope Events since last encounter States feels at baseline. s/p HSE yesterday with recommendations for rehab vs home with services. Constitutional: Denies: Chills, Fever, Night Sweats Pulmonary: Denies: Dyspnea, Cough Cardiovascular: Denies: Chest Pain, Palpitations, Orthopnea, Paroxysmal Noc. Dyspnea, Lt Headedness Gastrointestinal: Denies: Nausea, Vomiting, Abdominal Pain, Diarrhea, Constipation Genitourinary: Denies: Dysuria, Frequency, Incontinence, Retention Objective Physical Examination General Exam: Positive: Alert, No Acute Distress Chest Exam: Positive: Clear to auscultation; Negative: Rales, Rhonchi, Wheezing Heart Exam: Positive: Rate Normal, Irregular Rhythm Abdomen Exam: Positive: Normal bowel sounds, Soft; Negative: Tenderness, Hepatospenomegaly Extremity Exam: Negative: Edema Psych Exam: Positive: Mental status NL, Oriented x 3 Assessment /Plan Problems (1) Vasovagal syncope Status: Acute Response to Treatment: Improving Problem Text: 12/15/18: repeat PT eval today. Likely related to dehydration from diarrhea in combination with vasodilation from hot shower Tele not ordered on admission, but verbal order given to place on tele, however not done - will order tele now to monitor for arrhythmia Lasix, Spironolactone and Isosorbide on hold for now. BP stable and renal function back to baseline. K+ low today - Restart Spironolactone. Give potassium and check mag level. Get PT (2) Enteropathogenic Escherichia coli infection Status: Acute Problem Text: will need DC on Start Cipro 500 mg every 18 hours for three days. Seems to be resolving - no diarrhea since yesterday (3) A-fib Status: Chronic Response to Treatment: Stable Problem Text: Rate controlled Cont Xarelto (4) CKD (chronic kidney disease) stage 3, GFR 30-59 ml/min Status: Chronic Response to Treatment: Improving Problem Text: Back to baseline with diuretics on hold (5) S/P mitral valve replacement Status: Chronic Response to Treatment: Stable Problem Specific Plan: Consult Specialist Plan/VTE VTE Prophylaxis Ordered?: Yes Plan Therapy: PT, OT VS, I&O, 24H, Fishbone Vital Signs/I&O Vital Signs Date Time Temp Pulse Resp B/P (MAP) Pulse Ox O2 Delivery O2 Flow Rate FiO2 12/15/18 09:38 140/92 12/15/18 09:38 96 12/15/18 08:38 98.6 17 95 12/12/18 04:45 12/11/18 16:23 Room Air I&O- Last 24 Hours up to 6 AM 12/15/18 06:00 Intake Total 1320 ml Output Total 500 ml Balance 820 ml Laboratory Data 24H LABS Laboratory Tests 2 12/15/18 05:21: Nucleated Red Blood Cells % (auto) 0.0, Anion Gap 6L, Glomerular Filtration Rate 29.8L, Blood Urea Nitrogen 57H, Creatinine 1.75H, Sodium Level 137, Potassium Level 3.7, Chloride Level 106, Carbon Dioxide Level 25, Calcium Level 8.8 CBC/BMP Laboratory Tests 12/15/18 05:21 Red Blood Count 3.74 L, Mean Corpuscular Volume 100.5 H, Mean Corpuscular Hemoglobin 32.4, Mean Corpuscular Hemoglobin Concent 32.2, Red Cell Distribution Width 13.2, Calcium Level 8.8 Microbiology Microbiology 12/11/18 Gastrointestinal Tract Panel (PCR) - Final, Complete Enteropathogenic E.coli Linnette Henderson JUNIOR DATABASE ADMINISTRATOR Dec 15, 2018 10:19
[2018-12-15] MEDS: CIPROFLOXACIN 500 MG TAB PO SCH (12:10)
[2018-12-15 12:25] VITALS: BP 144/62
[2018-12-15 16:00] VITALS: BP 132/75
[2018-12-15 20:00] VITALS: BP 128/83
[2018-12-15] MEDS: RIVAROXABAN 15 MG TAB (XARELTO) PO SCH (21:21)
[2018-12-15 23:59] VITALS: BP 132/85
[2018-12-16 04:00] VITALS: BP 133/85
[2018-12-16 05:27] LABS: HEMOGLOBIN 11.8 g/dl (12.0-15.5); MEAN CORPUSCULAR HEMOGLOBIN 31.7 pg (27.0-33.0); MEAN CORPUSCULAR HGB CONC 31.9 g/dl (32.0-36.5); MEAN CORPUSCULAR VOLUME 99.5 fl (80.0-96.0); PLATELET COUNT, AUTOMATED 127 10^3/uL (150-450); RED BLOOD COUNT 3.72 10^6/uL (4.00-5.40); WHITE BLOOD COUNT 10.3 10^3/uL (4.0-10.0)
[2018-12-16] MEDS: SLF 3 ML SYR IV SCH (05:53)
[2018-12-16 05:57] LABS: CALCIUM LEVEL 8.6 MG/DL (8.8-10.2); CREATININE FOR GFR 1.74 MG/DL (0.55-1.30); POTASSIUM SERUM 4.1 MEQ/L (3.5-5.1)
[2018-12-16] MEDS: CIPROFLOXACIN 500 MG TAB PO SCH (06:16)
[2018-12-16 08:00] VITALS: BP 142/79
[2018-12-16] MEDS: GABAPENTIN 300 MG CAP PO SCH (08:32)
[2018-12-16] MEDS: FOLIC ACID 1 MG TAB PO SCH (08:32)
[2018-12-16] MEDS: VENLAFAXINE **XR** 75MG CAPSULE PO SCH (08:32)
[2018-12-16 08:33] VITALS: BP 133/85
[2018-12-16] MEDS: diltiaZEM **CD** 180 MG CAP PO SCH (08:33)
[2018-12-16] MEDS: FUROSEMIDE 40 MG TAB PO SCH (08:33)
[2018-12-16] MEDS: NEBIVOLOL 5 MG TAB (BYSTOLIC) PO SCH (08:33)
[2018-12-16] MEDS: TOLTERODINE TARTRATE 2 MG LA CAP (DETROL LA) PO SCH (08:33)
[2018-12-16] MEDS: OMEPRAZOLE 20 MG CAP PO SCH (08:33)
[2018-12-16] MEDS: SPIRONOLACTONE 25 MG TAB PO SCH (08:33)
[2018-12-16] MEDS: ISOSORBIDE MONONITRATE 10MG TABLET PO SCH (08:33)
[2018-12-16] MEDS: FEBUXOSTAT 40 MG TABLET (ULORIC) PO SCH (08:33)
[2018-12-16] MEDS: rOPINIRole 1MG TAB PO SCH (08:33)
[2018-12-16] MEDS: MULTIVITAMINS/MINERALS THERAP 1 TAB PO SCH (08:34)
[2018-12-16] MEDS ORDERED: DILT1CAP PO (08:57)
[2018-12-16] MEDS: DOCUSATE SODIUM 100 MG CAP PO SCH (09:00)
--- NOTE | 2018-12-17 12:42 | DSES ---
DATE OF ADMISSION: 12/11/2018 DATE OF DISCHARGE: 12/16/2018 ATTENDING PHYSICIAN: Dr. Yariel Davidson. PRIMARY CARE PROVIDER: Dr. Levi Carrasco. HISTORY OF PRESENT ILLNESS: This is an 78-year-old female with chronic progressive weakness over the last several years with a recent long inpatient rehabilitation stay at [facility] for 4 months. Patient was found unresponsive underneath her shower bench in her home and was subsequently brought into the emergency department (ED). Patient was admitted secondary to syncopal episode for monitoring. HOSPITAL COURSE: Patient was noted to have significant amounts of diarrhea so cultures were obtained and she was shown to have enteropathogenic Escherichia coli (EPEC). This did not resolve on its own and she was placed on Cipro 500 mg by mouth every 18 hours for a full three doses. Patient's diarrhea did improves significantly and she has had no further episodes. She has been monitored with no adverse events noted on telemetry. She was re-hydrated with improvement in her symptoms. Patient has remained rate controlled while in the hospital and her anticoagulation was maintained for her atrial fibrillation. Imaging completed while in the hospital include head CT and cervical spine CT both of which proved no acute changes. Patient has remained afebrile throughout her hospitalization and has not required any oxygen. She has been cleared by physical therapy to return home with the use of her specialized walker. PHYSICAL EXAMINATION: On physical exam today, patient's vital signs are stable. She is afebrile. HEENT: Neck is supple without lymphadenopathy or jugular venous distention (JVD). CARDIOVASCULAR: Heart rate and rhythm are irregularly irregular and is rate controlled in the 60-70 range. PULMONARY: Lungs clear to auscultation bilaterally. ABDOMEN: Soft and nontender with positive bowel sounds times all four quadrants. EXTREMITIES: Bilateral lower extremities are with just trace of edema. Positive pedal pulses bilaterally. NEURO: Patient is alert and oriented times three. PSYCHO: Affect is appropriate. Conversation is congruent and patient maintains eye contact. ASSESSMENT: 1. Syncopal episode. 2. Enteropathogenic E Coli. 3. Atrial fibrillation. 4. Chronic kidney disease stage III. 5. History of mitral valve replacement. PLAN: Patient will be discharged to home with home health for physical therapy. Activity is out-of-bed with assistance of her walker. Diet is 2 grams sodium diet. Patient is to followup with her primary care provider (PCP) within the next 5-7 days. MEDICATIONS ARE FOLLOWS: - Tylenol 650 mg by mouth every 8 hours as needed for pain - calcitriol 0.25 mcg capsule by mouth as directed. - Colace 100 mg by mouth twice a day - Uloric 40 mg by mouth daily - Folic acid 1 mg by mouth daily - furosemide 20 mg by mouth twice a day - gabapentin 600 mg by mouth twice a day - isosorbide mononitrate 10 mg by mouth twice a day - multivitamin one tablet daily - Bystolic 5 mg one by mouth daily - omeprazole 40 mg by mouth twice a day - Xarelto 15 mg by mouth nightly - ropinirole 1 mg by mouth twice a day - spironolactone 25 mg by mouth twice a day - Carafate 1 gram by mouth daily - tolterodine tartrate 4 mg by mouth daily - venlafaxine HCL ER 150 mg by mouth daily - diltiazem 240 mg by mouth daily Patient is discharged in stable and satisfactory condition. There were no further questions at the time of discharge.
== END 2018-12-16 11:56 | disposition home health service (06) | DRG 373 ==
LOC: EDBD 08:39 → M ED 08:39 → M ED INP 15:33 → M PCU 17:16
PROVIDERS: ADMIT Family Medicine; ATTEND Family Medicine
DX: A04.4 Other intestinal Escherichia coli infections (principal); I48.91 Unspecified atrial fibrillation; N18.3 Chronic kidney disease, stage 3 (moderate); Z95.2 Presence of prosthetic heart valve; Z79.899 Other long term (current) drug therapy; I11.9 Hypertensive heart disease without heart failure; E78.5 Hyperlipidemia, unspecified; K21.9 Gastro-esophageal reflux disease without esophagitis; E88.81 Metabolic syndrome and other insulin resistance; R55 Syncope and collapse; D72.829 Elevated white blood cell count, unspecified

== ENCOUNTER 2018-12-22 08:34 | Inpatient (IN) | payer MEDICARE, BC, OTHER, MEDICAID ==
[~2018-12-22] VITALS: Ht 170.2 cm; Wt 105.6 kg
[~2018-12-22 08:34] MED LIST changes: +ROPI1TAB PO
[2018-12-22] MEDS ORDERED: PANTOPRAZOLE 40MG INJ (PROTONIX) (C9113) IV ONE (09:00)
[2018-12-22] MEDS ORDERED: PANTOPRAZOLE SODIUM 40 MG in D5W 50 ML IV SCH (09:00)
--- NOTE | 2018-12-22 09:40 | REP ---
Clinical: Weakness. Fall. Comparison: 05/01/2018. Findings: Opacity involving the area of the mediastinum and left mid/lower lung field is similar to prior examination and consistent with large underlying hernia. Associated left lower lobe atelectasis/consolidation as well as the possibility of small effusion cannot be excluded. Right hemithorax is relatively clear. Cardiac silhouette is incompletely evaluated although visualized portions appear stable. No pneumothorax. Skeletal structures demonstrate degenerative changes primarily involving the bilateral shoulders. Impression: Essentially stable large hiatal hernia with suspected associated left lower lobe atelectasis. Consolidation as well as small effusion cannot be excluded. Electronically Signed by Andrew Rodriguez MD 12/22/2018 09:31 A
[2018-12-22 10:15] LABS: BASO % 0.3 % (0.0-1.0); EOS # 0.1 10^3/uL (0.0-0.50); EOS % 0.8 % (0.0-3.0); HEMATOCRIT 37.2 % (36.0-47.0); HEMOGLOBIN 12.1 g/dl (12.0-15.5); LYMPH # 1.9 10^3/uL (1.5-4.5); LYMPH % 12.2 % (24.0-44.0); MEAN CORPUSCULAR HEMOGLOBIN 32.1 pg (27.0-33.0); MEAN CORPUSCULAR HGB CONC 32.5 g/dl (32.0-36.5); MEAN CORPUSCULAR VOLUME 98.7 fl (80.0-96.0); MONO # 0.9 10^3/uL (0.0-0.8); MONO % 5.9 % (0.0-5.0); NEUTROPHILS # 12.2 10^3/uL (1.8-7.7); NEUTROPHILS % 80.2 % (36.0-66.0); PLATELET COUNT, AUTOMATED 161 10^3/uL (150-450); RED BLOOD COUNT 3.77 10^6/uL (4.00-5.40); WHITE BLOOD COUNT 15.2 10^3/uL (4.0-10.0)
[2018-12-22 10:26] LABS: INR 3.05; PROTHROMBIN TIME 31.5 SECONDS (11.8-14.0)
[2018-12-22 10:27] LABS: PARTIAL THROMBOPLASTIN TIME 46.8 SECONDS (25.0-38.4)
[2018-12-22 10:41] LABS: CALCIUM LEVEL 9.4 MG/DL (8.8-10.2); CK-MB VALUE MASS 3.6 NG/ML (<3.6); CREATININE FOR GFR 1.91 MG/DL (0.55-1.30); GLOMERULAR FILTRATION RATE 26.9 (>32); MB/CK RELATIVE INDEX 1.82 (< OR =4); POTASSIUM SERUM 3.6 MEQ/L (3.5-5.1); TROPONIN I 0.02 NG/ML (< 0.10)
[2018-12-22] MEDS ORDERED: LR 1,000 ML IV SCH (12:29)
[2018-12-22] MEDS ORDERED: SULF1TAB30 PO (12:35)
[2018-12-22] MEDS ORDERED: DILT240C47 PO (12:35)
[2018-12-22] MEDS ORDERED: TYLE650T35 PO (12:35)
[2018-12-22] MEDS ORDERED: FURO40TA2 PO (12:35)
--- NOTE | 2018-12-22 13:24 | HPEPDOC ---
[facility] Medical History & Physical Date of Admission Dec 22, 2018 Date of Service: Dec 22, 2018 History and Physical PCP: Stefanie Longoria CHIEF COMPLAINT: Diarrhea and abdominal pain HISTORY OF PRESENT ILLNESS: Patient is an 78-year-old female who was recently hospitalized 12/11 through 12/16 at that time she presented with syncope as well as diarrhea she was found to have enteropathogenic Escherichia coli. She was treated with 3 days of ciprofloxacin and had good improvement in her symptoms and was discharged home where she has been doing quite well. Over the last 48 hours it has had progressively worsening colicky abdominal pain in the lower quadrants associated with episodes of loose watery diarrhea and semi-formed dark tarry stools. Patient denies lightheadedness dizziness palpitations and is frustrated with the recurrence of her symptoms similar to how her presentation was 2 weeks ago. Otherwise patient denies weight loss, hair loss, headache, visual changes, chest pain, shortness of breath, cough, nausea, vomiting, muscle aches, worsening arthritis, change in mood PAST MEDICAL HISTORY: SBE MITRAL VALVE (ENTEROCOCCAL) 07/21/2013; FOLLOWED BY ASHLI HODGE 10/08 EF 65%, MOD-SEVERE MR; UNDERWENT MVR WITH #33 MOSAIC MITRAL VALVE (PORCINE) 07/28/15 ATRIAL FIBRILLATION POSTOP MVR 08/[address] FRANCIS HYPERTENSION DDD/DD C-SPINE/ LS SPINE LUMBAR SPINAL STENOSIS MRI IN [place] HYPERLIPIDEMIA ESOPHAGEAL REFLUX IMPAIRED FASTING GLUCOSE METABOLIC SYNDROME GASTRITIS EGD 2000 ADENOMATOUS COLON POLYP COLONOSCOPY 08/07 PERIPHERAL EDEMA SECONDARY VENOUS INSUFFIENCY VITAMIN D DEFICIENCY L5-S1 RADICULOPATHY/ NEUROPATHY HX MRSA EMPHYSEMA AND COMPRESSIVE ATELECTASIS CT SCAN 12/04 LEFT LUNG NODULE, STABLE ON CTS [id number]--NO FURTHER W/U NEEDED PER RADIOLOGY GOUT CVA (MULTIPLE--PROB SEPTIC EMBOLI) MRI BRAIN 08/07 LARGE HH, NEARLY ENTIRE STOMACH HERNIATED ABOVE DIAPHRAGM UGIS 03/09 --GROUP HOME HIGH-DOSE PPUI/SUCRALFATE TX ADVISED URINARY INCONTINENCE SYSTOLIC CHF, EF 30% ON CARDIAC CATH 08/09 (BEFORE MVR) MGUS, M PROT 0.15G/DL, YEARLY SPEP/ONCO BY DR STRINGER--NOW DR HE; PROTEIN 0.09G/DL (04/13) MITRAL VALVE REPLACEMENT JULY 28, 2015 CHRONIC KIDNEY DISEASE STAGE 3-4, FOLLOWS NEPHROLOGY/DR ROMERO; PARATHYROIDISM RLS RESTLESS LEG SYNDROME NOCTURNAL HYPOXEMIA - ON 2L NC AT BEDTIME HOME MEDICATIONS: Please see below. ALLERGIES: Please see below PAST SURGICAL HISTORY: LUMBAR SPINAL FUSION 1994 VENOUS STRIPPING X 2 GEORGE/BSO ENDOMETRIAL ADENOCARCINOMA LEFT TKR RIGHT TKR PODIATRIC PROCEDURES: BUNIONECTOMY, HAMMERTOES COLONOSCOPY (ADENOMATOUS POLYPS 08/07) 12/29, 08/07 MARGARETH--+ VEGETATION MITRAL VALVE 08/07 MITRAL VALVE REPLACEMENT WITH #33 MOSAIC MITRAL VALVE (PORCINE) 07/28/[address] [facility] 08/09 CARDIAC CATH AT [facility]--NO CAD, EF 30%, SEVERE MR 08/09 CATARACT REMOVAL BL 08/11,09/11 SOCIAL HISTORY: Lives with: , Employment: retired , Tobacco use: Denies. ETOH: Denies, Illicit drug use: Denies, Tattoos done unprofessionally: Denies, CODE STATUS: Full code ALLERGIES: please see below FAMILY HISTORY:Reviewed and noncontributory REVIEW OF SYSTEMS: 10 systems reviewed and negative other than HPI PHYSICAL EXAMINATION: VITAL SIGNS: Temperature 96.5, pulse 68, respiratory rate 18, blood pressure 140/77, pulse oximetry 97 % on room air. GENERAL: Pleasant obese elderly female sitting up in bed awake alert oriented speaking in complete sentences no acute distress HEENT: Moist mucous membranes no elevation and CVP CARDIOVASCULAR: S1 S2 regular no additional heart sounds appreciated. RESPIRATORY: Clear to auscultation bilaterally. ABDOMINAL: Bowel sounds present abdomen soft and diffusely tender to deep palpation EXTREMITIES: No clubbing cyanosis, trace edema NEUROLOGICAL: Spontaneously moves all 4 extremities cranial 2 through 12 grossly intact no gross focal deficits appreciated PSYCHOLOGICAL: Appropriate LABORATORY DATA: See below. MICROBIOLOGY: Please see below. IMAGING: Chest x-ray:Essentially stable large hiatal hernia with suspected associated left lower lobe atelectasis. Consolidation as well as small effusion cannot be excluded. ASSESSMENT & PLAN: This is a 78-year-old female with recurrence of diarrhea and abdominal pain with some dark tarry stools. PROBLEMS: Abdominal pain and dark tarry stools: Occult blood was reportedly positive in the emergency room there is certainly some concern for possible GI bleed she has been on anticoagulation for atrial fibrillation which we will hold at this time. She has had a recent Escherichia coli intestinal infection as well which could cause some bleeding however she is several days out is had 3 days of antibiotics regarding this and did previously have improvement in her symptoms. Does have an elevated leukocytosis as well as recent antibiotic use and C. difficile the possible etiology as well all check a GI PCR panel keep her nothing by mouth except for medications and ice chips admitted to the progressive care unit monitor hemoglobin and hematocrit which the time being appear quite stable. She is normotensive she is not tachycardic and appears quite well. I'll place on parameters on her antihypertensives. Otherwise, continue medication for her chronic pain in mood disorders. She'll be on a PPI drip as well as some gentle fluid hydration DVT PROPHYLAXIS: Mechanical secondary to possible ongoing bleeding DISPOSITION: Admitted to inpatient status progressive care unit [facility] Vital Signs Vital Signs Date Time Temp Pulse Resp B/P (MAP) Pulse Ox O2 Delivery O2 Flow Rate FiO2 12/22/18 11:30 140/77 (98) 12/22/18 11:19 77 97 12/22/18 08:54 96.5 18 Room Air Laboratory Data Labs 24H Laboratory Tests 2 12/22/18 10:02: Prothrombin Time 31.5H, Prothromb Time International Ratio 3.05, Activated Partial Thromboplast Time 46.8H 12/22/18 10:03: Immature Granulocyte % (Auto) 0.6, White Blood Count 15.2H, Red Blood Count 3.77L, Hemoglobin 12.1, Hematocrit 37.2, Mean Corpuscular Volume 98.7H, Mean Corpuscular Hemoglobin 32.1, Mean Corpuscular Hemoglobin Concent 32.5, Red Cell Distribution Width 13.9, Platelet Count 161, Neutrophils (%) (Auto) 80.2H, Lymphocytes (%) (Auto) 12.2L, Monocytes (%) (Auto) 5.9H, Eosinophils (%) (Auto) 0.8, Basophils (%) (Auto) 0.3, Neutrophils # (Auto) 12.2H, Lymphocytes # (Auto) 1.9, Monocytes # (Auto) 0.9H, Eosinophils # (Auto) 0.1, Basophils # (Auto) 0.0, Nucleated Red Blood Cells % (auto) 0.0, Anion Gap 6L, Glomerular Filtration Rate 26.9L, Blood Urea Nitrogen 58H, Creatinine 1.91H, Sodium Level 138, Potassium Level 3.6, Chloride Level 104, Carbon Dioxide Level 28, Calcium Level 9.4, Total Creatine Kinase 198H, Creatine Kinase MB 3.6, Creatine Kinase MB Relative Index 1.82, Troponin I 0.02 CBC/BMP Laboratory Tests 12/22/18 10:03 Red Blood Count 3.77 L, Mean Corpuscular Volume 98.7 H, Mean Corpuscular Hemoglobin 32.1, Mean Corpuscular Hemoglobin Concent 32.5, Red Cell Distribution Width 13.9, Neutrophils (%) (Auto) 80.2 H, Lymphocytes (%) (Auto) 12.2 L, Monocytes (%) (Auto) 5.9 H, Eosinophils (%) (Auto) 0.8, Basophils (%) (Auto) 0.3, Neutrophils # (Auto) 12.2 H, Lymphocytes # (Auto) 1.9, Monocytes # (Auto) 0.9 H, Eosinophils # (Auto) 0.1, Basophils # (Auto) 0.0, Calcium Level 9.4, Total Creatine Kinase 198 H Home Medications Scheduled Calcitriol (Calcitriol) 0.25 Mcg Cap, 0.25 MCG PO 3XW SATURDAY, SATURDAY AND SATURDAY IN THE EVENING Diltiazem HCl (Diltiazem 24Hr ER) 240 Mg Cap.er.24h, 240 MG PO DAILY Febuxostat (Uloric) 40 Mg Tab, 40 MG PO DAILY Folic Acid (Folic Acid) 1 Mg Tab, 1 MG PO DAILY Furosemide (Furosemide) 40 Mg Tablet, 40 MG PO BID Gabapentin (Gabapentin) 600 Mg Tab, 600 MG PO BID Isosorbide Mononitrate (Isosorbide Mononitrate) 10 Mg Tab, 5 MG PO BID Multivitamins (Thera M Plus Tablet) 1 Tab Tab, 1 TAB PO DAILY Nebivolol HCl (Bystolic) 5 Mg Tab, 5 MG PO DAILY Omeprazole (Omeprazole) 40 Mg Cap, 40 MG PO BID Rivaroxaban (Xarelto) 15 Mg Tab, 15 MG PO QPM Ropinirole HCl (Ropinirole HCl) 1 Mg Tablet, 1 MG PO BID Spironolactone (Spironolactone) 25 Mg Tablet, 25 MG PO BID Sulfasalazine (Sulfasalazine) 500 Mg Tablet, 500 MG PO BID Tolterodine Tartrate (Tolterodine Tartrate ER) 4 Mg Cap, 4 MG PO DAILY Venlafaxine HCl (Venlafaxine HCl ER) 150 Mg Cap, 150 MG PO DAILY Scheduled PRN Acetaminophen (Tylenol Arthritis) 650 Mg Tablet.er, 650 MG PO Q8H PRN for PAIN Docusate Sodium (Colace) 100 Mg Cap, 100 MG PO BID PRN for CONSTIPATION Allergies Coded Allergies: allopurinol (Verified Allergy, Intermediate, HIVES, 12/11/18) A-FIB/CHADSVASC A-FIB History Current/History of A-Fib/PAF?: Yes Current PO Anticoag Therapy: No Treatment Reason Anticoagulant not given: Current bleeding YUSUF PHAN MD Dec 22, 2018 13:24
[2018-12-22 16:30] VITALS: BP 141/73
[2018-12-22] MEDS: PANTOPRAZOLE SODIUM 40 MG in D5W MINI-BAG PLUS 50 ML IV SCH ×3 (17:29→21:01)
[2018-12-22 18:12] LABS: HEMATOCRIT 39.7 % (36.0-47.0); HEMOGLOBIN 12.6 g/dl (12.0-15.5)
[2018-12-22] MEDS: VENLAFAXINE **XR** 75MG CAPSULE PO SCH (18:34)
[2018-12-22] MEDS: NEBIVOLOL 5 MG TAB (BYSTOLIC) PO SCH (18:34)
[2018-12-22] MEDS: ISOSORBIDE MONONITRATE 10MG TABLET PO SCH (18:34)
[2018-12-22 20:00] VITALS: BP 131/58
--- NOTE | 2018-12-22 20:13 | ECGEPIP ---
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
[2018-12-22] MEDS: GABAPENTIN 300 MG CAP PO SCH (20:29)
[2018-12-22] MEDS: sulfaSALAzine 500 MG TABEC PO SCH (20:29)
[2018-12-22] MEDS: rOPINIRole 1MG TAB PO SCH (20:29)
[2018-12-22] MEDS: ACETAMINOPHEN 650MG ER TAB (TYLENOL ARTHRITIS) PO PRN (21:01)
[2018-12-23] VITALS: BP 128/80
[2018-12-23] MEDS: PANTOPRAZOLE SODIUM 40 MG in D5W MINI-BAG PLUS 50 ML IV SCH ×5 (03:07→23:57)
[2018-12-23 04:00] VITALS: BP 139/65
[2018-12-23 05:03] LABS: HEMOGLOBIN 12.4 g/dl (12.0-15.5); MEAN CORPUSCULAR HGB CONC 32.6 g/dl (32.0-36.5); MEAN CORPUSCULAR VOLUME 101.1 fl (80.0-96.0); PLATELET COUNT, AUTOMATED 138 10^3/uL (150-450); RED BLOOD COUNT 3.76 10^6/uL (4.00-5.40); WHITE BLOOD COUNT 10.2 10^3/uL (4.0-10.0)
[2018-12-23 05:15] LABS: INR 1.8; PROTHROMBIN TIME 20.6 SECONDS (11.8-14.0)
[2018-12-23 05:26] LABS: CALCIUM LEVEL 9.1 MG/DL (8.8-10.2); CREATININE FOR GFR 1.47 MG/DL (0.55-1.30); GLOMERULAR FILTRATION RATE 36.4 (>32); POTASSIUM SERUM 3.4 MEQ/L (3.5-5.1)
[2018-12-23] MEDS ORDERED: POTASSIUM CHLORIDE 10 MEQ SR TABLET PO ONE (07:00)
--- NOTE | 2018-12-23 07:27 | IPNPDOC ---
Subjective Date Seen The patient was seen on 12/23/18. Subjective Chief Complaint/HPI Patient lying comfortably in bed as I entered the room. She reports abdominal pain to be improving. One episode of loose stool last evening. She offers no new concerns today. Constitutional: Denies: Chills, Fever Pulmonary: Denies: Dyspnea, Cough Cardiovascular: Denies: Chest Pain, Palpitations, Orthopnea Gastrointestinal: Reports: Abdominal Pain (improving ); Denies: Nausea, Vomiting, Diarrhea, Hematochezia Psych: Reports: Mood Normal Objective Physical Examination General Exam: Positive: Alert, Cooperative, No Acute Distress Neck Exam: Positive: Supple; Negative: JVD Chest Exam: Positive: Clear to auscultation, Normal air movement; Negative: Rales, Rhonchi Heart Exam: Positive: Irregular Rhythm Telemetry: Positive: Atrial fibrillation Extremity Exam: Positive: Edema (trace) Psych Exam: Positive: Mood NL Assessment /Plan Problems (1) Abdominal pain Status: Acute Response to Treatment: Improving Problem Text: 12/23/18: Pain seems to be improving. GI was consulted. Plan is for EGD and colonoscopy tomorrow. Patient on clear liquids (2) Positive occult stool blood test Status: Acute Response to Treatment: Stable Problem Specific Plan: Consult Specialist Problem Text: 12/23/18: Dr. Raymond was consulted. Plan for EGD and colonoscopy as above. Hgb stable, 12.4 (3) Diarrhea Status: Acute Response to Treatment: Improving Problem Text: 12/23/18: Diarrhea has improved. Only one episode since yesterday evening. She is on clear liquids. GI panel was obtained but canceled d/t formed stool (4) A-fib Status: Chronic Response to Treatment: Stable Problem Text: 12/23/18: Rate stable. Her Xarelto is on hold (5) CKD (chronic kidney disease) stage 3, GFR 30-59 ml/min Status: Chronic Response to Treatment: Stable Problem Text: 12/23/18: Renal function is stable BUN/Cre 47/1.47, GFR 36 (6) CHF (congestive heart failure) Status: Chronic Response to Treatment: Stable Problem Text: 12/23/18: Spironolactone and Lasix on hold. Appears well compensated at present. We may want to d/c her LR for now given she is consuming a clear liquid diet and restart at mid-night. I will discuss further with attending Plan/VTE VTE Prophylaxis Ordered?: No (TEDs and Sequentials ) VTE Exclusion Pharmacological: Active Bleeding VS, I&O, 24H, Fishbone Vital Signs/I&O Vital Signs Date Time Temp Pulse Resp B/P (MAP) Pulse Ox O2 Delivery O2 Flow Rate FiO2 12/23/18 04:00 98.1 65 16 139/65 (89) 98 12/22/18 15:30 Room Air I&O- Last 24 Hours up to 6 AM 12/23/18 06:00 Intake Total 890 ml Output Total 0 ml Balance 890 ml Laboratory Data 24H LABS Laboratory Tests 2 12/22/18 10:02: Prothrombin Time 31.5H, Prothromb Time International Ratio 3.05, Activated Partial Thromboplast Time 46.8H 12/22/18 10:03: Immature Granulocyte % (Auto) 0.6, White Blood Count 15.2H, Red Blood Count 3.77L, Hemoglobin 12.1, Hematocrit 37.2, Mean Corpuscular Volume 98.7H, Mean Corpuscular Hemoglobin 32.1, Mean Corpuscular Hemoglobin Concent 32.5, Red Cell Distribution Width 13.9, Platelet Count 161, Neutrophils (%) (Auto) 80.2H, Lymphocytes (%) (Auto) 12.2L, Monocytes (%) (Auto) 5.9H, Eosinophils (%) (Auto) 0.8, Basophils (%) (Auto) 0.3, Neutrophils # (Auto) 12.2H, Lymphocytes # (Auto) 1.9, Monocytes # (Auto) 0.9H, Eosinophils # (Auto) 0.1, Basophils # (Auto) 0.0, Nucleated Red Blood Cells % (auto) 0.0, Anion Gap 6L, Glomerular Filtration Rate 26.9L, Blood Urea Nitrogen 58H, Creatinine 1.91H, Sodium Level 138, Potassium Level 3.6, Chloride Level 104, Carbon Dioxide Level 28, Calcium Level 9.4, Total Creatine Kinase 198H, Creatine Kinase MB 3.6, Creatine Kinase MB Relative Index 1.82, Troponin I 0.02 12/23/18 03:21: Clostridium difficile [id number] , Clostridium difficile Toxin (PCR) 12/23/18 04:43: Prothrombin Time 20.6H, Prothromb Time International Ratio 1.80, Nucleated Red Blood Cells % (auto) 0.0, Anion Gap 8, Glomerular Filtration Rate 36.4, Blood Urea Nitrogen 47H, Creatinine 1.47H, Sodium Level 143, Potassium Level 3.4L, Chloride Level 109H, Carbon Dioxide Level 26, Calcium Level 9.1 CBC/BMP Laboratory Tests 12/22/18 10:03 Red Blood Count 3.77 L, Mean Corpuscular Volume 98.7 H, Mean Corpuscular Hemoglobin 32.1, Mean Corpuscular Hemoglobin Concent 32.5, Red Cell Distribution Width 13.9, Neutrophils (%) (Auto) 80.2 H, Lymphocytes (%) (Auto) 12.2 L, Monocytes (%) (Auto) 5.9 H, Eosinophils (%) (Auto) 0.8, Basophils (%) (Auto) 0.3, Neutrophils # (Auto) 12.2 H, Lymphocytes # (Auto) 1.9, Monocytes # (Auto) 0.9 H, Eosinophils # (Auto) 0.1, Basophils # (Auto) 0.0, Calcium Level 9.4, Total Creatine Kinase 198 H 12/22/18 17:53 12/23/18 04:43 Red Blood Count 3.76 L, Mean Corpuscular Volume 101.1 H, Mean Corpuscular Hemogl obin 33.0, Mean Corpuscular Hemoglobin Concent 32.6, Red Cell Distribution Width 14.1, Calcium Level 9.1 Attending Note Attending Note Not surprising that an individual with enteropathogenic E.coli would have heme pos stool. Symptoms have improved this am. JOE RUFFIN Dec 23, 2018 07:27 Brandon Klein MD Dec 23, 2018 09:02
[2018-12-23 08:00] VITALS: BP 138/65
[2018-12-23] MEDS: FEBUXOSTAT 40 MG TABLET (ULORIC) PO SCH (08:34)
[2018-12-23] MEDS: GABAPENTIN 300 MG CAP PO SCH ×2 (08:34→21:06)
[2018-12-23] MEDS: rOPINIRole 1MG TAB PO SCH ×2 (08:35→21:06)
[2018-12-23] MEDS: NEBIVOLOL 5 MG TAB (BYSTOLIC) PO SCH (08:35)
[2018-12-23] MEDS: sulfaSALAzine 500 MG TABEC PO SCH ×2 (08:35→21:06)
[2018-12-23] MEDS: ISOSORBIDE MONONITRATE 10MG TABLET PO SCH ×2 (08:35→16:39)
[2018-12-23] MEDS: FOLIC ACID 1 MG TAB PO SCH (08:36)
[2018-12-23] MEDS: TOLTERODINE TARTRATE 2 MG LA CAP (DETROL LA) PO SCH (08:36)
[2018-12-23] MEDS: VENLAFAXINE **XR** 75MG CAPSULE PO SCH (08:36)
[2018-12-23 09:20] LABS: FOLATE > 24.0 NG/ML (>5.4); VITAMIN B12 LEVEL 1168 PG/ML (247-911)
[2018-12-23 12:00] VITALS: BP 147/75
[2018-12-23] MEDS: ACETAMINOPHEN 650MG ER TAB (TYLENOL ARTHRITIS) PO PRN (13:47)
[2018-12-23 14:00] VITALS: BP 144/76
[2018-12-23] MEDS ORDERED: POLYETHYLENE GLYCOL (MIRALAX) 238GM BOTTLE PO ONE (16:00)
[2018-12-23 18:10] LABS: HEMOGLOBIN 12.3 g/dl (12.0-15.5)
[2018-12-23 22:00] VITALS: BP 148/78
[2018-12-24] MEDS: PANTOPRAZOLE SODIUM 40 MG in D5W MINI-BAG PLUS 50 ML IV SCH ×4 (05:32→19:31)
[2018-12-24 06:00] VITALS: BP 140/83
[2018-12-24] MEDS ORDERED: POLYETHYLENE GLYCOL (MIRALAX) 238GM BOTTLE PO ONE (06:00)
[2018-12-24 06:33] LABS: HEMATOCRIT 39.9 % (36.0-47.0); HEMOGLOBIN 12.7 g/dl (12.0-15.5); MEAN CORPUSCULAR HEMOGLOBIN 32.6 pg (27.0-33.0); MEAN CORPUSCULAR HGB CONC 31.8 g/dl (32.0-36.5); MEAN CORPUSCULAR VOLUME 102.3 fl (80.0-96.0); PLATELET COUNT, AUTOMATED 151 10^3/uL (150-450); WHITE BLOOD COUNT 10.2 10^3/uL (4.0-10.0)
[2018-12-24 06:43] LABS: INR 1.25; PROTHROMBIN TIME 15.4 SECONDS (11.8-14.0)
[2018-12-24 06:54] LABS: CREATININE FOR GFR 1.37 MG/DL (0.55-1.30); GLOMERULAR FILTRATION RATE 39.5 (>32); POTASSIUM SERUM 3.9 MEQ/L (3.5-5.1)
--- NOTE | 2018-12-24 08:07 | IPNPDOC ---
Subjective Date Seen The patient was seen on 12/24/18. Subjective Chief Complaint/HPI no abdominal pain. last BM trips were clear following prep ENT: Denies: Head Aches Pulmonary: Denies: Dyspnea Cardiovascular: Denies: Palpitations, Orthopnea Gastrointestinal: Denies: Nausea, Abdominal Pain Genitourinary: Denies: Dysuria Hematologic: Denies: Bruising Psych: Reports: Mood Normal Objective Physical Examination General Exam: Positive: Alert, Cooperative, No Acute Distress Neck Exam: Positive: Supple; Negative: JVD Chest Exam: Positive: Clear to auscultation, Normal air movement; Negative: Rales, Rhonchi Heart Exam: Positive: Irregular Rhythm Telemetry: Positive: Atrial fibrillation Extremity Exam: Positive: Edema (trace), Other (arthritic deformities noted.) Psych Exam: Positive: Mood NL Assessment /Plan Problems (1) Abdominal pain Status: Acute Response to Treatment: Improving Problem Text: 12/24 pain free. may be able to be discharged following endoscopy. 12/23/18: Pain seems to be improving. GI was consulted. Plan is for EGD and colonoscopy tomorrow. Patient on clear liquids (2) Positive occult stool blood test Status: Acute Response to Treatment: Stable Problem Specific Plan: Consult Specialist Problem Text: 12/24: Hgb 12.4, no melena 12/23/18: Dr. Raymond was consulted. Plan for EGD and colonoscopy as above. Hgb stable, 12.4 (3) Diarrhea Status: Acute Response to Treatment: Improving Problem Text: 12/23/18: Diarrhea has improved. Only one episode since yesterday evening. She is on clear liquids. GI panel was obtained but canceled d/t formed stool (4) A-fib Status: Chronic Response to Treatment: Stable Problem Text: 12/24 plan to resume after endoscopy unless contraindication identified. 12/23/18: Rate stable. Her Xarelto is on hold (5) CKD (chronic kidney disease) stage 3, GFR 30-59 ml/min Status: Chronic Response to Treatment: Stable Problem Text: 12/23/18: Renal function is stable BUN/Cre 47/1.47, GFR 36 (6) CHF (congestive heart failure) Status: Chronic Response to Treatment: Stable Problem Text: 12/23/18: Spironolactone and Lasix on hold. Appears well compensated at present. We may want to d/c her LR for now given she is consuming a clear liquid diet and restart at mid-night. I will discuss further with attending Plan/VTE VTE Prophylaxis Ordered?: No (TEDs and Sequentials ) VTE Exclusion Pharmacological: Active Bleeding VS, I&O, 24H, Fishbone Vital Signs/I&O Vital Signs Date Time Temp Pulse Resp B/P (MAP) Pulse Ox O2 Delivery O2 Flow Rate FiO2 12/24/18 06:00 74 18 140/83 (102) 95 2.0 12/23/18 14:00 97.5 12/22/18 15:30 Room Air I&O- Last 24 Hours up to 6 AM 12/24/18 06:00 Intake Total 1150 ml Output Total 0 ml Balance 1150 ml Laboratory Data 24H LABS Laboratory Tests 2 12/23/18 08:27: Vitamin B12 Level 1168H, Folate > 24.0 12/24/18 06:10: Nucleated Red Blood Cells % (auto) 0.0, Prothrombin Time 15.4H, Prothromb Time International Ratio 1.25, Anion Gap 5L, Glomerular Filtration Rate 39.5, Blood Urea Nitrogen 35H, Creatinine 1.37H, Sodium Level 141, Potassium Level 3.9, Chloride Level 108H, Carbon Dioxide Level 28, Calcium Level 9.0 CBC/BMP Laboratory Tests 12/23/18 17:57 12/24/18 06:10 Red Blood Count 3.90 L, Mean Corpuscular Volume 102.3 H, Mean Corpuscular He moglobin 32.6, Mean Corpuscular Hemoglobin Concent 31.8 L, Red Cell Distribution Width 14.4, Calcium Level 9.0 Brandon Klein MD Dec 24, 2018 08:07
[2018-12-24] MEDS: FOLIC ACID 1 MG TAB PO SCH (08:26)
[2018-12-24] MEDS: GABAPENTIN 300 MG CAP PO SCH ×2 (08:26→20:51)
[2018-12-24] MEDS: VENLAFAXINE **XR** 75MG CAPSULE PO SCH (08:27)
[2018-12-24] MEDS: sulfaSALAzine 500 MG TABEC PO SCH ×2 (08:27→20:50)
[2018-12-24] MEDS: FEBUXOSTAT 40 MG TABLET (ULORIC) PO SCH (08:27)
[2018-12-24] MEDS: rOPINIRole 1MG TAB PO SCH ×2 (08:27→20:50)
[2018-12-24] MEDS: TOLTERODINE TARTRATE 2 MG LA CAP (DETROL LA) PO SCH (08:27)
[2018-12-24] MEDS: ISOSORBIDE MONONITRATE 10MG TABLET PO SCH ×2 (08:28→15:41)
[2018-12-24] MEDS: D5W/LR 1,000 ML IV SCH (08:28)
[2018-12-24] MEDS: NEBIVOLOL 5 MG TAB (BYSTOLIC) PO SCH (11:02)
[2018-12-24 14:00] VITALS: BP 135/72
[2018-12-24] MEDS ORDERED: PROPOFOL 200 MG/20 ML VIAL As Ordered ONE (17:09)
[2018-12-24] MEDS ORDERED: fentaNYL 100 MCG/2 ML INJECTION (J3010) As Ordered ONE (17:09)
[2018-12-24] MEDS ORDERED: LIDOCAINE 2% INJ 100 MG/5 ML SDV (FOR ANES.) As Ordered ONE (17:09)
--- NOTE | 2018-12-24 18:31 | ROOR ---
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 Inpatient 2. Inpatient Requesting Provider: Medicines: Monitored Anesthesia Care Complications: No immediate complications. Procedure: Pre-Anesthesia Assessment: - The heart rate, respiratory rate, oxygen saturations, blood pressure, adequacy of pulmonary ventilation, and response to care were monitored throughout the procedure. The Colonoscope was introduced through the anus and advanced to the terminal ileum, with identification of the appendiceal orifice and IC valve. The colonoscopy was performed without difficulty. The patient tolerated the procedure well. The quality of the bowel preparation was adequate. Findings: The perianal and digital rectal examinations were normal. Three sessile polyps were found in the ascending colon and cecum. The polyps were 4 to 5 mm in size. These polyps were removed with a cold snare. Resection and retrieval were complete. A 4 mm polyp was found in the sigmoid colon. The polyp was sessile. The polyp was removed with a cold snare. Resection and retrieval were complete. Multiple medium-mouthed diverticula were found in the sigmoid colon. Internal hemorrhoids were found during retroflexion. The hemorrhoids were moderate. Biopsies for histology were taken with a cold forceps from the |{skip}| for evaluation of microscopic colitis. Impression: - Three 4 to 5 mm polyps in the ascending colon and in the cecum, removed with a cold snare. Resected and retrieved. - One 4 mm polyp in the sigmoid colon, removed with a cold snare. Resected and retrieved. - Moderate diverticulosis in the sigmoid colon. - Internal hemorrhoids. - Biopsies were taken with a cold forceps for evaluation of microscopic colitis. Recommendation: - Telephone endoscopist for pathology results in 2 weeks. - Outpatient follow up with me is not necessary. Teofilo Raymond MD Teofilo RAYMOND MD 12/24/2018 6:31:47 PM Electronically signed by Teofilo RAYMOND MD Number of Addenda: 0 Note Initiated On: 12/24/2018 3:44 PM Estimated Blood Loss: Estimated blood loss: none."
--- NOTE | 2018-12-24 18:37 | ROOR ---
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 Inpatient 2. Inpatient Requesting Provider: Medicines: Monitored Anesthesia Care Complications: No immediate complications. Procedure: Pre-Anesthesia Assessment: - The heart rate, respiratory rate, oxygen saturations, blood pressure, adequacy of pulmonary ventilation, and response to care were monitored throughout the procedure. The Endoscope was introduced through the mouth, and advanced to the second part of duodenum. The upper GI endoscopy was accomplished without difficulty. The patient tolerated the procedure well. Findings: The examined esophagus was normal. A large hiatal hernia was present. A few semi-sessile fundic gland polyps with no bleeding and no stigmata of recent bleeding were found in the stomach. The exam of the stomach was otherwise normal. The examined duodenum was normal. Impression: - Normal esophagus. - Stomach with a large hiatal hernia. - A few fundic gland polyps. - Normal examined duodenum. - No specimens collected. Recommendation: - Observe patient's clinical course. - Advance diet as tolerated. Teofilo Raymond MD Teofilo RAYMOND MD 12/24/2018 6:36:40 PM Electronically signed by Teofilo RAYMOND MD Number of Addenda: 0 Note Initiated On: 12/24/2018 6:32 PM Estimated Blood Loss: Estimated blood loss: none.
[2018-12-24] MEDS ORDERED: LR 1,000 ML IV SCH (19:00)
[2018-12-24] MEDS ORDERED: ONDANSETRON 4MG/2ML VIAL (J2405) IV PRN (19:00)
[2018-12-24 20:15] VITALS: BP 139/74
[2018-12-24] MEDS: ACETAMINOPHEN 650MG ER TAB (TYLENOL ARTHRITIS) PO PRN (20:50)
[2018-12-25] MEDS: PANTOPRAZOLE SODIUM 40 MG in D5W MINI-BAG PLUS 50 ML IV SCH ×3 (00:08→10:29)
[2018-12-25] MEDS: D5W/LR 1,000 ML IV SCH (05:25)
[2018-12-25 06:00] VITALS: BP 145/72
[2018-12-25 06:24] LABS: HEMATOCRIT 37.7 % (36.0-47.0); HEMOGLOBIN 11.9 g/dl (12.0-15.5); MEAN CORPUSCULAR HEMOGLOBIN 32.8 pg (27.0-33.0); MEAN CORPUSCULAR HGB CONC 31.6 g/dl (32.0-36.5); MEAN CORPUSCULAR VOLUME 103.9 fl (80.0-96.0); PLATELET COUNT, AUTOMATED 139 10^3/uL (150-450); RED BLOOD COUNT 3.63 10^6/uL (4.00-5.40); WHITE BLOOD COUNT 9.6 10^3/uL (4.0-10.0)
[2018-12-25 06:32] LABS: INR 1.2; PROTHROMBIN TIME 14.9 SECONDS (11.8-14.0)
[2018-12-25 06:42] LABS: CALCIUM LEVEL 8.7 MG/DL (8.8-10.2); CREATININE FOR GFR 1.43 MG/DL (0.55-1.30); GLOMERULAR FILTRATION RATE 37.6 (>32); POTASSIUM SERUM 4.3 MEQ/L (3.5-5.1)
[2018-12-25] MEDS: GABAPENTIN 300 MG CAP PO SCH (08:56)
[2018-12-25] MEDS: NEBIVOLOL 5 MG TAB (BYSTOLIC) PO SCH (08:57)
[2018-12-25] MEDS: TOLTERODINE TARTRATE 2 MG LA CAP (DETROL LA) PO SCH (08:57)
[2018-12-25] MEDS: sulfaSALAzine 500 MG TABEC PO SCH (08:57)
[2018-12-25 08:58] VITALS: BP 145/72
[2018-12-25] MEDS: FOLIC ACID 1 MG TAB PO SCH (08:58)
[2018-12-25] MEDS: ISOSORBIDE MONONITRATE 10MG TABLET PO SCH (08:58)
[2018-12-25] MEDS: VENLAFAXINE **XR** 75MG CAPSULE PO SCH (08:58)
[2018-12-25] MEDS: rOPINIRole 1MG TAB PO SCH (08:58)
[2018-12-25] MEDS: FEBUXOSTAT 40 MG TABLET (ULORIC) PO SCH (08:59)
[2018-12-25] MEDS: ACETAMINOPHEN 650MG ER TAB (TYLENOL ARTHRITIS) PO PRN (09:05)
--- NOTE | 2018-12-25 09:59 | DSES ---
DATE OF ADMISSION: 12/22/2018 DATE OF DISCHARGE: REASON FOR ADMISSION: Ms. Oconnor presented to emergency department (ED) with complaints of abdominal pain with some cramping. Emergency room (ER) evaluation showed that she had heme-positive stool. Hemoglobin, however remained stable during her stay in hospital. Hemoglobin was 12.1 on admission and 12.6 later the same day, 12.4 the following day, 12.3 later that day, 12.7 yesterday, 11.9 today. She has chronic kidney impairment. She had creatinine of 1.91 on admission, 1.43 on discharge. International normalized ratio (INR) was elevated at 3.05 on admission and came down to 1.20 by the time of discharge. She was on Xarelto 15 mg a day for a diagnosis of atrial fibrillation. She has had mitral valve replacement with a porcine, no heterograft valve and she had been on Xarelto 15 for stroke prophylaxis. She is status post surgery for endometrial adenocarcinoma. She had been the ER in October with episode of bleeding from the perineal area. The patient reports that it was found to be coming from the urethra, perhaps she has urethral caruncle. She says exam was done in the ED. She has had no further obvious bleeding since that day. 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 She underwent mitral valve replacement in September of 2014. She had been seeing Dr. Lobo for her rheumatoid arthritis. She has typical deformities with prominently swollen metacarpal phalangeal joints, swan neck deformities in two of her fingers and yet, the new local baggage porter head told her she did not really rheumatoid arthritis. I have encouraged her to continue followup with rheumatology as recommended and consider second opinion regarding the validity of the of the absence of rheumatoid arthritis (RA). During her stay, she was comfortable, had no really continuing pain, cramps or diarrhea. Successfully engaged in the prep and had a colonoscopy, which revealed a polyp, which was biopsied by Dr. Raymond, and pathology will need to be checked on followup. Before this admission, she had been in hospital and was diagnosed with enteropathogenic Escherichia (E) coli, which obviously can cause blood loss related to colitis associated with this infection. She had presented with abdominal pain and some diarrhea and some dark tarry stools, but again her hemoglobin remained stable during her hospital stay. DISCHARGE DIAGNOSES: 1. Recent history of enteropathogenic E-coli infection, heme-positive stools. 2. Colonic polyp, pathology pending. 3. Chronic atrial fibrillation status post mitral valve replacement. 4. History of parathyroidism. 5. Rheumatoid arthritis. 6. Gastroesophageal reflux disease (GERD). 7. History of stroke 2013. 8. History of spinal fusion 1994. 9. Status post total abdominal hysterectomy (GEORGE)/bilateral salpingo-oophorectomy (BSO) for endometrial carcinoma. 10. Status post right and left total knee replacements. 11. Previous history of adenomatous colon polyps 2013, 2004. 12. Cardiomyopathy with the ejection fraction of 30%, which is documented at the time of her mitral valve replacement in 2015. 13. Anemia with associated acute gastrointestinal (GI) blood loss. Activity will be as tolerated. Diet will be per usual 2 gram sodium. She will resume Xarelto 1 day after discharge on 12/26/2018. Followup with Dr. Carrasco or a colleague at his office in 1 week. Followup regarding biopsy finding and recent reported perineal bleeding, which took her to the ED and one occasion. At this point, the gastrointestinal symptoms associated with the previously diagnosed enteropathogenic E-coli seemed to have resolved after 3 days of ciprofloxacin antibiotic treatment, which had been completed before admission. Edited: 12/25/2018 1023 ravenm
== END 2018-12-25 13:20 | disposition home or self-care (01) | DRG 392 ==
LOC: EDBD 08:34 → M ED 08:34 → M ED INP 12:04 → M ICU 16:39 → M MS4PR 12-23 11:13
PROVIDERS: ADMIT Internal Medicine; ATTEND Family Medicine
PROC: 0DBN8ZX Excision of Sigmoid Colon, Via Natural or Artificial Opening Endoscopic, Diagnostic (ICD-10-PCS; 2018-12-24)
PROC: 0DBH8ZX Excision of Cecum, Via Natural or Artificial Opening Endoscopic, Diagnostic (ICD-10-PCS; 2018-12-24)
PROC: 0DBE8ZX Excision of Large Intestine, Via Natural or Artificial Opening Endoscopic, Diagnostic (ICD-10-PCS; 2018-12-24)
PROC: 0DJ08ZZ Inspection of Upper Intestinal Tract, Via Natural or Artificial Opening Endoscopic (ICD-10-PCS; 2018-12-24)
PROC: 0DBL8ZX Excision of Transverse Colon, Via Natural or Artificial Opening Endoscopic, Diagnostic (ICD-10-PCS; principal; 2018-12-24 16:00)
DX: R19.5 Other fecal abnormalities (principal); I50.22 Chronic systolic (congestive) heart failure; N18.4 Chronic kidney disease, stage 4 (severe); I13.0 Hypertensive heart and chronic kidney disease with heart failure and stage 1 through stage 4 chronic kidney disease, or unspecified chronic kidney disease; I48.2 Chronic atrial fibrillation; M06.9 Rheumatoid arthritis, unspecified; M50.30 Other cervical disc degeneration, unspecified cervical region; M51.17 Intervertebral disc disorders with radiculopathy, lumbosacral region; M48.061 Spinal stenosis, lumbar region without neurogenic claudication; E78.5 Hyperlipidemia, unspecified; K21.9 Gastro-esophageal reflux disease without esophagitis; E88.81 Metabolic syndrome and other insulin resistance; I87.2 Venous insufficiency (chronic) (peripheral); E55.9 Vitamin D deficiency, unspecified; R19.7 Diarrhea, unspecified; J43.9 Emphysema, unspecified; M10.9 Gout, unspecified; R32 Unspecified urinary incontinence; G25.81 Restless legs syndrome; D12.0 Benign neoplasm of cecum; D12.5 Benign neoplasm of sigmoid colon; D12.2 Benign neoplasm of ascending colon; G47.36 Sleep related hypoventilation in conditions classified elsewhere; K57.30 Diverticulosis of large intestine without perforation or abscess without bleeding; K31.7 Polyp of stomach and duodenum; K44.9 Diaphragmatic hernia without obstruction or gangrene; K64.8 Other hemorrhoids; Z98.1 Arthrodesis status; Z86.73 Personal history of transient ischemic attack (TIA), and cerebral infarction without residual deficits; Z95.3 Presence of xenogenic heart valve; Z96.653 Presence of artificial knee joint, bilateral; Z86.010 Personal history of colon polyps; Z98.41 Cataract extraction status, right eye; Z98.42 Cataract extraction status, left eye; Z79.01 Long term (current) use of anticoagulants; Z79.899 Other long term (current) drug therapy; Z88.8 Allergy status to other drugs, medicaments and biological substances; Z85.42 Personal history of malignant neoplasm of other parts of uterus; Z90.710 Acquired absence of both cervix and uterus; Z90.722 Acquired absence of ovaries, bilateral

== ENCOUNTER 2019-05-18 02:37 | Inpatient (IN) | payer MEDICARE, BC, OTHER ==
[2019-05-18] VITALS (13 sets, daily range): BP systolic 66–103; BP diastolic 41–74
[~2019-05-18] VITALS: Ht 170.2 cm; Wt 93.4 kg
[~2019-05-18 02:37] MED LIST changes: +FEBU40TA4 PO; -OMEP40CA2 PO; +OMEP40CA97 PO; +TYLE650T35 PO
[2019-05-18 07:22] LABS: ABG BASE EXCESS -3.2 (-2.0-2.0); ABG PARTIAL PRESSURE CO2 30.8 mmHg (35.0-45.0); ABG PARTIAL PRESSURE O2 51.2 mmHg (75.0-100.0); ABG STANDARD HCO3 21.6 MEQ/L (22.0-26.0); ABG TOTAL CO2 20.9 MEQ/L (23.0-31.0)
--- NOTE | 2019-05-18 08:04 | REP ---
Clinical: Hypoxia. Comparison: 12/22/2018. Findings: Evaluation is significantly limited. Large hiatal hernia is again suggested along with cardiomegaly. Perihilar and basilar atelectasis cannot be excluded. No pneumothorax. Skeletal structures are stable. Impression: Limited examination demonstrating a large hiatal hernia and cardiomegaly. Lower lobe infiltrate/atelectasis cannot be excluded. Electronically Signed by Andrew Rodriguez MD 05/18/2019 07:55 A
[2019-05-18 08:49] LABS: HEMATOCRIT 43.6 % (36.0-47.0); HEMOGLOBIN 13.5 g/dl (12.0-15.5); MEAN CORPUSCULAR HEMOGLOBIN 27.3 pg (27.0-33.0); MEAN CORPUSCULAR VOLUME 88.1 fl (80.0-96.0); PLATELET COUNT, AUTOMATED 129 10^3/uL (150-450); RED BLOOD COUNT 4.95 10^6/uL (4.00-5.40); WHITE BLOOD COUNT 22.2 10^3/uL (4.0-10.0)
[2019-05-18] MEDS ORDERED: PIPERACILLIN/TAZOBACTAM SOD 3.375 GM in D5W MINI-BAG PLUS 50 ML IV SCH (09:00)
[2019-05-18] MEDS ORDERED: FLEEENE12 PR (09:04)
[2019-05-18] MEDS ORDERED: TOLT2TAB12 PO (09:04)
[2019-05-18] MEDS ORDERED: PANT40TA3 PO (09:04)
[2019-05-18] MEDS ORDERED: PRED20TA PO (09:04)
[2019-05-18] MEDS ORDERED: MILKSUS3 PO (09:04)
[2019-05-18] MEDS ORDERED: ACET1TAB55 PO (09:04)
--- NOTE | 2019-05-18 09:07 | IPN ---
DATE: 05/18/2019 ADDENDUM: I spoke with Marty Oconnor, Madison's daughter. We discussed the case at length. He is aware at this point she is a FULL CODE. Discussed options, including DO NOT RESUSCITATE, DO NOT INTUBATE, comfort measurements or full aggressive unrestricted care. He will discuss things with sister, who is also health care proxy and a nurse practitioner and they will let me know any change in her code status.
[2019-05-18 09:19] LABS: ALBUMIN 2.5 GM/DL (3.2-5.2); BILIRUBIN,TOTAL 0.6 MG/DL (0.2-1.0); CALCIUM LEVEL 9.6 MG/DL (8.8-10.2); CREATININE FOR GFR 2.27 MG/DL (0.55-1.30); GLOMERULAR FILTRATION RATE 22.1 (>32); POTASSIUM SERUM 4.6 MEQ/L (3.5-5.1); TOTAL PROTEIN 5.4 GM/DL (6.4-8.2)
[2019-05-18 09:25] LABS: ANISOCYTOSIS 1+; GIANT PLATELETS 1+; LYMPHOCYTES 5 % (16-44); NEUTROPHILS 79 % (28-66); PLATELET ESTIMATE DECREASED (NORMAL)
--- NOTE | 2019-05-18 09:57 | HPE ---
DATE OF ADMISSION: 05/18/2019 ATTENDING PHYSICIAN: Charlieist . Madison Oconnor was transferred from [facility]. I reviewed the records sent by [place]. She is a FULL CODE. The patient used to be under my primary care until she was admitted the alf in [place] in January. She was transferred this morning for respiratory failure. She was admitted to [facility] on 05/13/2019 for altered mental status, weakness and hypoxemia. She had been increasingly weak, lethargic and confused over a two week period. She was felt to have a urinary tract infection, treated with Rocephin. She had repeated episodes of altered mental status, and repeated CTs of the head that did not show any changes. She had a CT of the chest done that showed a large left diaphragmatic hernia and diffuse ground glass opacities with left basilar atelectasis. She was given IV fluids. Azithromycin was added to her ceftriaxone. Her oxygenation was maintained at 2 liters nasal cannula. Soon after admission, her urine culture returned showing E. coli sensitive to ceftriaxone. One out of four blood cultures were positive for Staphylococcus hominis. The rest were negative. (The patient has a past history of enterococcal subacute bacterial endocarditis 07/21/2013. Underwent mitral valve replacement with a #33 Mosaic porcine mitral valve 07/28/2015). It looks as though she was started on IV fluids for a low chloride with plan is to discharge her back to the alf on 05/18; however, last night she had acute respiratory failure, rapid atrial fibrillation with rates of 150-170, oxygen saturations dropped into the mid 70s, placed on CPAP. A stat chest x-ray showed diffuse airspace disease with opacification of the left lower lung field, effusion and infiltrate suspected. She was given IV Lasix and started on cefepime and Levaquin and transferred to [facility]. Prior to transfer she had coffee ground emesis, 300 mL (the patient was on Xarelto at that point). PAST MEDICAL HISTORY: She has a complicated past medical history. She had enterococcal endocarditis of her mitral valve 07/10, had severe mitral regurgitation as a consequence and underwent mitral valve replacement, #33 Mosaic porcine mitral valve 07/28/15, with postop atrial fibrillation. She has rheumatoid arthritis, was followed by [facility]. Hypertensive heart disease. 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 Hyperlipidemia. Gastroesophageal reflux. Prediabetes. Metabolic syndrome. Gastritis on EGD from 2000. Venous insufficiency with chronic lower extremity edema. Vitamin D deficiency. Emphysema on CT scan 12/04. History of gout. History of recurrent strokes, probably septic emboli, seen on MRI of the brain 08/07. Has a large hiatal hernia, nearly all of her stomach is herniated above the diaphragm on upper GI series from 03/09, on terminal worker high dose PPI/Carafate advised. In the past she has had systolic heart failure, had an ejection fraction (cut off) on cardiac catheterization 08/09 before her mitral replacement. Most recent echocardiogram was from 11/11, ejection fraction 40%, left atrium 43 mm, at least mild pulmonary hypertension. Normally functioning mitral valve bioprosthesis. She has a history of monoclonal gammopathy of undetermined significance (MGUS), has an M spike that is very low, less than 0.1 on 04/13. Chronic kidney disease stage III/IV, follows with Dr. Johnston. Most recent GFR was in the 30s. Has secondary hyperparathyroidism. Restless leg syndrome. Nocturnal hypoxemia on 2 liters nasal cannula. SURGICAL HISTORY: Lumbar spine fusion 1994. Vein stripping times two. Total abdominal hysterectomy and bilateral salpingo-oophorectomy (GEORGE/BSO) for endometrial carcinoma. Left and right total knee replacements. Various podiatric procedures for bunionectomy and hammertoes. Colonoscopy with adenomatous colon polyps 08/07. Mitral valve replacement 08/09. Cataracts removed 08/11. FAMILY HISTORY: Father at 96. He had diabetes, hypertension, hyperlipidemia and leukemia. Mother had hypertension, kidney disease, at 93. Sister with an essential tremor. Son with diabetes, obesity and hypertensive heart disease. Daughter with hypothyroidism, depression and obesity. MEDICATIONS: MARS was sent by [employer]. CODE STATUS: She is a FULL CODE based on Medical Order for Life-Sustaining Treatment (MOLST) form from 01/07/2019. REVIEW OF SYSTEMS: Not obtainable. PHYSICAL EXAMINATION: Blood pressure 103/74, pulse 106, respiratory rate 30, 89% oxygen saturation on nonrebreather, 98.1 degrees. GENERAL APPEARANCE: She looks severe dyspneic. She is intermittently lethargic, but when she does wake up she does not recognize me, which she always has in the past. She mumbles that "my body is full of cake." Her skin was clammy. HEENT: Grossly unremarkable. No facial droop. LUNGS: Diffuse rhonchi and wheezes. HEART: Rapid, irregular rate and rhythm. 1/6 systolic ejection murmur. ABDOMEN: Soft, nontender. EXTREMITIES: No clubbing or cyanosis. Trace peripheral edema. Venous stasis dermatitis of the lower extremities. Decreased pulses in the feet. Moves arms and legs with equal strength, but does not follow commands. LABORATORIES: ABG 7.43/30/51/86. Chest x-ray shows a large hiatal hernia, cardiomegaly, lower lobe infiltrate versus atelectasis. IMPRESSION: 1. Respiratory failure from suspected hospital associated pneumonia. I do not see a lot of sign of volume overload on exam. She does not have peripheral edema, which she typically does. Her blood pressure is borderline low, it was 90s when I was in the room looking at her. I do not think we can safely diurese her without worsening her hypotension. She will be treated for healthcare associated pneumonia with IV vancomycin and Zosyn, dose adjusted for renal function. Pharmacology consultation ordered. Giving her a dose of empiric steroids and nebulized bronchodilators. Pulmonary has been consulted, case discussed with Dr. Goldman. 2. Recent upper gastrointestinal (GI) bleed with coffee ground emesis. The patient was anticoagulated. She has a history of gastritis. She has a huge hiatal hernia, most of her stomach above the diaphragm. She has bled from this before. IV Protonix has been ordered. She is nothing by mouth. Serial CBCs have been ordered. 3. Atrial fibrillation with rapid ventricular response. Blood pressure limits use of beta-blockers or calcium channel blockers, might (cut off) if her heart rate increases. Anticoagulation is on hold. 4. Question of (?) congestive heart failure. Stat echocardiogram ordered. She did not look volume overloaded on exam. 5. Chronic kidney disease stage III-IV. Stat lab work ordered. She has been previously followed by Dr. Johnston. 6. History of SBE mitral valve, now with bioprosthetic mitral valve. She had one blood culture positive at [facility]. It was only one out of four. Repeat blood cultures have been ordered and vancomycin and Zosyn ordered. 7. History of gout. Takes Uloric 40 mg daily as an outpatient. 8. History of depression. She was on venlafaxine 150 mg a day when she was last seen by our office in December. Her prognosis is poor. I am meeting with the family to rediscuss advance directives.
--- NOTE | 2019-05-18 11:00 | REP ---
Clinical: Status post nasogastric tube placement. Technique: Portable upright. Comparison: 05/18/2019 at 07:17 a.m. Findings: Large hiatal hernia is again noted with nasogastric tube extending into the intrathoracic stomach. Perihilar and lower lobe infiltrates cannot be excluded. No obvious effusion. No pneumothorax. Impression: Large hiatal hernia. Nasogastric tube within the intrathoracic stomach. Electronically Signed by Andrew Rodriguez MD 05/18/2019 10:52 A
--- NOTE | 2019-05-18 11:25 | PHACANCOPD ---
PHARMACY VANCOMYCIN DOSING Pt Demographics Demographics Patient Age:78 , Weight:93.400 , Gender: female Adjusted Body Weight Date: 05/18/19, Adjusted Body Weight: [74.3] Kg Events Past 24 Hours Events Past 24 Hours: NO: Dialysis, Diuretic Therapy, Change in CrCl, Fever, Elevation in WBC, Pending Diagnostics, Pending Procedures, Other Vancomycin Vancomycin indication: HAP Vancomycin Target Ranges: 15-20 mcg/ml Vancomycin Load Y/N: Yes Load Dose Date Time Vancomycin Load Dose: 1.75G Date:05/18/19 Time:12:00 Vancomycin Dose Date: 05/18/19. Current Vancomycin Dose: [1G IV Q24H] Intermittent Dosing?: No Labs Labs Item Value Date Time White Blood Count 22.2 10^3/uL H 05/18/19 0835 Neutrophils 79 % H 05/18/19 0835 Creatinine 2.27 MG/DL H 05/18/19 0835 Micro Microbiology 05/18/19 Blood Culture, Received Pending 05/18/19 Blood Culture, Received Pending Creatinine Clearance Date:05/18/19. Creatinine Clearance: [23.2 ADJ.]. Pending Labs MRSA PCR Assessment and Plan Maintaining Current Dose?: Yes Reason for dose change: No Dose Change Pharmacist Note Pharmacist Note Date: 05/18/19. Pharmacist note: Pt is an 78 year old female being treated for HAP goal trough 15-20mcg/ml. She was last treated with vancomycin her at [facility] in 2015. To achieve goal a 1.75g loading dose will start 05/18/19 @12:00. Maintenance therapy will consist of 1g IV q24h. A MRSA PCR is ordered. We will continue to monitor and adjust the dose as needed. JF HANSON PHARMACY May 18, 2019 11:25
[2019-05-18] MEDS ORDERED: VANCOMYCIN HCL 1,000 MG, VIAL MATE ADAPTER 1 EACH in D5W 250 ML IV SCH (12:00)
[2019-05-18] MEDS ORDERED: LORazepam 2 MG/ML VIAL (J2060) IV PRN (12:45)
[2019-05-18] MEDS ORDERED: ACETAMINOPHEN TAB 650MG DOSE (2X325MG) PO PRN (12:45)
[2019-05-18] MEDS ORDERED: ACETAMINOPHEN 650 MG SUPP PR PRN (12:45)
[2019-05-18] MEDS ORDERED: SCOPOLAMINE 1MG TRANSDERMAL PATCH TOP PRN (12:45)
[2019-05-18] MEDS ORDERED: ONDANSETRON 4 MG ORAL DISINTEGRATING TAB (Q0162 PER 1MG) PO PRN (12:45)
[2019-05-18] MEDS ORDERED: MORPHINE 2 MG/ML 1ML VIAL (J2270) IV PRN (12:45)
[2019-05-18] MEDS ORDERED: VANCOMYCIN HCL 750 MG, VIAL MATE ADAPTER 1 EACH in D5W 250 ML IV ONE (13:00)
--- NOTE | 2019-05-19 12:58 | ECHO ---
DATE OF PROCEDURE: 05/18/2019 REFERRING PHYSICIAN: Dr. Snyder and Dr. Carrasco INDICATION: Congestive heart failure. HEIGHT: 170 cm. WEIGHT: 93 kg. DIMENSIONS: IVS 1.2 LV 3.0 LVPW 1.2 LA 3.6 Aorta 3.3 IVC 1.7 FINDINGS: The study is of rather limited technical quality with very challenging visualization. The patient is in atrial fibrillation with wide QRS complex and controlled rate. Left ventricle is normal size and grossly normal systolic function. I estimate EF around 60%, but I certainly cannot rule out subtle wall motion abnormalities. Right ventricle was poorly seen. There is severe biatrial enlargement. Aortic valve is sclerotic but mobility of cusp seems preserved. There is a bioprosthesis in mitral position and based on limited visualization it appears grossly normal. Tricuspid valve was poorly visualized. Same applies to pulmonic valve. Trivial pericardial effusion is noted. Inferior vena cava is of normal caliber and appropriately collapses with inspiration indicative of normal central venous pressure. Aortic root is normal. Aortic arch and abdominal aorta were not visualized. Doppler interrogation of aortic valve reveals no stenosis or insufficiency. There is no stenosis of mitral prosthesis and only trace insufficiency is noted. There is approximately moderate tricuspid insufficiency. Calculated pulmonary artery pressure though seems to be within normal limits assuming normal central venous pressure, which seems likely. Evaluation of diastolic function is inconclusive due to underlying atrial fibrillation, but tissue Doppler velocities of mitral annulus are very low and consequently at least moderate LV diastolic dysfunction is likely CONCLUSIONS: 1. Study is of fair technical quality. 2. The patient is in atrial fibrillation with wide QRS complex and controlled rate. 3. Normal LV size with mild LVH and grossly preserved LV systolic function. 4. Aortic sclerosis but no significant stenosis or insufficiency. 5. Bioprosthesis in mitral position with trace insufficiency and no stenosis. 6. Moderate tricuspid insufficiency. 7. Likely normal central venous pressure and normal pulmonary artery pressure. COMMENTS: SBE prophylaxis is recommended. MTDD
--- NOTE | 2019-05-19 18:12 | IPNPDOC ---
Text Note Date of Service The patient was seen on 05/19/19. NOTE SUBJECTIVE: Ms. Oconnor is an 78-year-old female who has been admitted with recurrent acute on chronic hypoxic respiratory failure. There are multiple contributory factors such as chronic lung disease and pneumonia, also likely recurrent. She was felt to have a poor long-term prognosis and family has made her DNR with comfort measures only. OBJECTIVE: Please see vital signs below Brief physical exam: HEENT: Neck is supple with no adenopathy or thyromegaly. Cardiovascular: Regular rate and rhythm. Respiratory: Coarse breath sounds anteriorly, no active cough. Abdomen: Soft, nontender, obese. Extremities: Moderate edema ASSESSMENT/PLAN: This is an 78-year-old female with acute on chronic hypoxic respiratory failure. Contributory factors include hospital-acquired pneumonia and chronic lung disease. There had also been a question of acute congestive heart failure; patient has preceding history of endocarditis and valvular heart disease with mitral valve replacement. Currently, the patient also has bacteremia and acute gastritis with episodes of coffee-ground emesis. Overall prognosis was felt felt to be poor. Family has made her DNR with comfort measures only. Family has also indicated that they are interested in hospice services and consult will be made on her behalf. VS,Fishbone, I+O VS, Fishbone, I+O Vital Signs Date Time Temp Pulse Resp B/P (MAP) Pulse Ox O2 Delivery O2 Flow Rate FiO2 05/19/19 09:00 4.0 05/18/19 12:15 93 18 66/41 (49) 94 Non-Rebreather 100 05/18/19 08:39 97.4 I&O- Last 24 Hours up to 6 AM 05/19/19 06:00 Intake Total 0 ml Output Total 595 ml Balance -595 ml ANALILIA DAY MD May 19, 2019 18:12
[2019-05-20] MEDS: MORPHINE 10MG/0.5ML ORAL CONCENTRATE SOLUTION U/D SL PRN ×3 (00:19→21:25)
--- NOTE | 2019-05-20 15:37 | IPNPDOC ---
Text Note Date of Service The patient was seen on 05/20/19. NOTE Ms. Oconnor is comfortable with her at bedside. She has managed to eat a little. Patient is comfort measures only status due to her multiple worsening underlying chronic medical conditions. The patient and her have multiple concerns regarding her care management. Hospice consult has been initiated; given the holiday period contact with the family appears to have been delayed; we are hopeful of additional assistance tomorrow. VS,Fishbone, I+O VS, Fishbone, I+O Vital Signs Date Time Temp Pulse Resp B/P (MAP) Pulse Ox O2 Delivery O2 Flow Rate FiO2 05/20/19 13:44 18 Nasal Cannula 4.0 05/18/19 12:15 93 66/41 (49) 94 100 05/18/19 08:39 97.4 I&O- Last 24 Hours up to 6 AM 05/20/19 06:00 Intake Total 125 ml Output Total 450 ml Balance -325 ml ANALILIA DAY MD May 20, 2019 15:37
--- NOTE | 2019-05-21 20:00 | IPNPDOC ---
Text Note Date of Service The patient was seen on 05/21/19. NOTE Ms. Oconnor is best and most comfortable with her at bedside. She has managed to eat a little. Patient is comfort measures only status due to her multiple worsening underlying chronic medical conditions. The patient and her are awaiting Hospice consult/ input has been initiated. Contact with the family appears to have been delayed; we are hopeful of additional assistance tomorrow, they are being very patient. Code status remains DNI/DNR. VS,Fishbone, I+O VS, Fishbone, I+O Vital Signs Date Time Temp Pulse Resp B/P (MAP) Pulse Ox O2 Delivery O2 Flow Rate FiO2 05/21/19 09:00 4.0 05/20/19 13:44 18 Nasal Cannula 05/18/19 12:15 93 66/41 (49) 94 100 05/18/19 08:39 97.4 I&O- Last 24 Hours up to 6 AM 05/21/19 08:00 Intake Total 970 ml Output Total 700 ml Balance 270 ml ANALILIA DAY MD May 21, 2019 20:00
[2019-05-22] MEDS: MORPHINE 10MG/0.5ML ORAL CONCENTRATE SOLUTION U/D SL PRN (17:35)
--- NOTE | 2019-05-22 21:18 | IPNPDOC ---
Text Note Date of Service The patient was seen on 05/22/19. NOTE The patient remains comfortable. She has not complained of pain to her family. She manages to eat small amounts. The patient has multiple conditions that are end-stage. She is poorly responsive to interventions and therapy. She is currently comfort measures only with plans for hospice placement. VS,Fishbone, I+O VS, Fishbone, I+O Vital Signs Date Time Temp Pulse Resp B/P (MAP) Pulse Ox O2 Delivery O2 Flow Rate FiO2 05/22/19 09:00 4.0 05/20/19 13:44 18 Nasal Cannula 05/18/19 12:15 93 66/41 (49) 94 100 05/18/19 08:39 97.4 I&O- Last 24 Hours up to 6 AM 05/22/19 05:59 Intake Total 955 ml Output Total 575 ml Balance 380 ml ANALILIA DAY MD May 22, 2019 21:18
[2019-05-23] MEDS: MORPHINE 10MG/0.5ML ORAL CONCENTRATE SOLUTION U/D SL PRN ×4 (06:09→19:50)
--- NOTE | 2019-05-23 20:31 | IPNPDOC ---
Text Note Date of Service The patient was seen on 05/23/19. NOTE Ms. Oconnor remains comfortable on [employer] status. She is becoming less responsive to her family. End stage conditions include: hospital acquired pneumonia, acute on chronic hypoxic resp failure, sepsis with bacteremia, valvular heart disease and persistent gastritis. She has not positively responded to any interventions. Plans are for the patient to transition to hospice care when bed becomes available. VS,Fishbone, I+O VS, Fishbone, I+O Vital Signs Date Time Temp Pulse Resp B/P (MAP) Pulse Ox O2 Delivery O2 Flow Rate FiO2 05/23/19 09:00 4.0 05/20/19 13:44 18 Nasal Cannula 05/18/19 12:15 93 66/41 (49) 94 100 05/18/19 08:39 97.4 I&O- Last 24 Hours up to 6 AM 05/23/19 08:00 Intake Total 150 ml Output Total 325 ml Balance -175 ml ANALILIA DAY MD May 23, 2019 20:31
[2019-05-23] MEDS: LORazepam 1 MG TAB PO PRN (22:09)
[2019-05-24] MEDS: MORPHINE 10MG/0.5ML ORAL CONCENTRATE SOLUTION U/D SL PRN ×2 (00:12→06:12)
[2019-05-24] MEDS: LORazepam 1 MG TAB PO PRN ×2 (02:15→08:52)
--- NOTE | 2019-05-25 09:00 | DSES ---
DATE OF ADMISSION: 05/18/2019 DATE OF DISCHARGE/: 05/24/2019 DATE OF SERVICE: 05/24/2019 This is an 78-year-old female, who initially was transferred from [facility]. She was a FULL CODE. She was living at [facility]. She has respiratory failure. She had altered mental status, weakness, hypoxemia. She had been increasingly weak, lethargic, confused over a two week period. She had a urinary tract infection. She was given intravenous (IV) fluids, azithromycin, ceftriaxone. She had positive blood cultures. She was ultimately 05/18/2019 discharged back to the custodial, but then had acute respiratory failure, atrial fibrillation. Dropped saturations into the 70s. Was placed on continuous positive airway pressure (CPAP). Chest x-ray showed diffuse airspace disease with opacification of the left lower lung field, effusion and infiltrate suspected. She was given IV Lasix, started on cefepime and Levaquin, and transferred to [facility]. Prior to transfer, she had 300 mL coffee ground emesis. She had been on Xarelto at that time. 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 She has a history of post-op atrial fibrillation, hyperlipidemia, gastroesophageal reflux disease (GERD), metabolic syndrome, gastritis, venous insufficiency, vitamin D deficiency, emphysema, history of gout, history of large hiatal hernia, nearly all her stomach is herniated above the diaphragm. She has chronic kidney disease, stage III-IV, follows with [facility]. Upon arrival to [facility], chest x-ray showed a large hiatal hernia, cardiomegaly, lower lobe infiltrate. Blood pressure was borderline low. She was started on IV vancomycin and Zosyn for the pneumonia. Pulmonary was consulted. Discussed with Dr. Goldman. She was placed on steroids and nebulized bronchodilators. She has a history of gastritis with a large hiatal hernia. She had coffee-ground emesis. IV Protonix was ordered and she was placed on nothing by mouth. Telemetry did show the atrial (fib) fibrillation. Stat echocardiogram was ordered. She did not progress well, and family made her DO NOT RESUSCITATE with COMFORT MEASURES ONLY on 05/19/2019. She had continued to be hypoxic. She had low blood pressures with systolic in the 60s. There was a question of possible acute congestive heart failure. Her blood pressure was borderline low that it was thought she could not be diuresed as she was so hypotensive. Prognosis was thought to be very poor. Family made her DO NOT RESUSCITATE with COMFORT MEASURES ONLY, and the family also indicated they were interested in hospice services and a consult was made on her behalf. The patient's family stayed at the bedside. She did at times eat a little. She had multiple worsening underlying chronic medical conditions. The next day she was becoming less responsive to her family. She was continued to be kept as comfortable as possible. She had end-stage pneumonia, respiratory failure, sepsis, valvular heart disease, persistent gastritis, and had not responded to any of these interventions. On 05/24/2019, with the family at her beside, she stopped breathing and her heart stopped beating, and at 10:49 a.m., 05/24/2019, she was pronounced . DISCHARGE DIAGNOSES: 1. Pneumonia. 2. Acute on chronic hypoxic respiratory failure. 3. Sepsis with bacteremia. 4. Valvular heart disease. 5. Persistent gastritis. 6. Severe mitral regurgitation with mitral valve replacement. 7. Rheumatoid arthritis. 8. Atrial fibrillation. 9. 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 10. History of vitamin D deficiency. 11. History of gout. 12. History of recurrent strokes. 13. Venous insufficiency. 14. Chronic lower extremity edema. 15. Metabolic encephalopathy 16. Acute gastritis with possible bleeding, coffee ground emesis 17. Septic shock The body will be released and patient will be taken to [facility] in [place]. Time of 10:49 a.m.; date 05/24/2019. edited: 06/08/2019 0822 tkf MTDD
== END 2019-05-24 10:49 | disposition expired | DRG 871 ==
LOC: M ICU 06:53 → M MSPAV 05-19 04:02
PROVIDERS: ADMIT Internal Medicine; ATTEND Internal Medicine
DX: A41.9 Sepsis, unspecified organism (principal); J96.21 Acute and chronic respiratory failure with hypoxia; I50.23 Acute on chronic systolic (congestive) heart failure; J18.9 Pneumonia, unspecified organism; G93.41 Metabolic encephalopathy; R65.21 Severe sepsis with septic shock; K29.01 Acute gastritis with bleeding; I13.0 Hypertensive heart and chronic kidney disease with heart failure and stage 1 through stage 4 chronic kidney disease, or unspecified chronic kidney disease; N18.4 Chronic kidney disease, stage 4 (severe); N25.81 Secondary hyperparathyroidism of renal origin; Z66 Do not resuscitate; Z95.4 Presence of other heart-valve replacement; I48.91 Unspecified atrial fibrillation; M06.9 Rheumatoid arthritis, unspecified; M51.37 Other intervertebral disc degeneration, lumbosacral region; E78.5 Hyperlipidemia, unspecified; E88.81 Metabolic syndrome and other insulin resistance; D47.2 Monoclonal gammopathy; J43.9 Emphysema, unspecified; E55.9 Vitamin D deficiency, unspecified; G25.81 Restless legs syndrome; Z98.1 Arthrodesis status; Z90.79 Acquired absence of other genital organ(s); Z96.651 Presence of right artificial knee joint; Z96.652 Presence of left artificial knee joint; Z85.42 Personal history of malignant neoplasm of other parts of uterus; Z98.41 Cataract extraction status, right eye; Z98.42 Cataract extraction status, left eye; K44.9 Diaphragmatic hernia without obstruction or gangrene; I34.0 Nonrheumatic mitral (valve) insufficiency; Z51.5 Encounter for palliative care; Z79.01 Long term (current) use of anticoagulants; Z79.899 Other long term (current) drug therapy; I46.9 Cardiac arrest, cause unspecified